=== PATIENT | female | born 1960 | race African-American/Black ===

== ENCOUNTER 2018-09-24 08:47 | Emergency (ER) | payer OTHER ==
[~2018-09-24] VITALS: Ht 172.7 cm; Wt 68.0 kg
[2018-09-24] MEDS ORDERED: UNOBMED (08:57)
--- NOTE | 2018-09-24 08:58 | Emergency Room Report ---
History of Present Illness General Chief Complaint: Altered Mental Status Source: EMS Present Illness HPI Mrs. Solis is a 58 yo female with hx of HTN and IDDM. She uses "the pen" for insulin. Her roommate noticed that she was awake around 7 am. Then, noticed that she was altered 1 - 1 1/2 hours later. BG 38 in the field per EMS. BG 47 after IM glucagon. Patient refuses to give hx of drink juice. She did agree to eat a sandwich. She stated that juice would make her sick. She will not give any further hx. Allergies: Coded Allergies: NO KNOWN ALLERGIES (Unverified Allergy, Unknown, 06/22/15) Patient History Past Medical History: old chart reviewed Past Surgical History: other - per EMR Social History: Denies: smoking, alcohol use, drug use Social History Narrative UTO Reviewed Nursing Documentation: PMH: Agreed; PSxH: Agreed Nursing Documentation-PMH Past Medical History Deferred: Patient Unconscious Hx Cardiac Problems: No Hx Hypertension: Yes Hx Pacemaker: No Hx Asthma: Yes Hx COPD: No Hx Diabetes: Yes Hx Cancer: No Hx Gastrointestinal Problems: No Hx Dialysis: No History Of Psychiatric Problem: No Hx Neurological Problems: No Hx Cerebrovascular Accident: No Hx Seizures: No Review of Systems All Other Systems: limited - patient will not cooperate Physical Exam Vital Signs Date Time Temp Pulse Resp B/P (MAP) Pulse Ox O2 Delivery O2 Flow Rate FiO2 09/24/18 08:44 98 150/78 Room Air Sp02 EP Interpretation: reviewed, normal General Appearance: no apparent distress, alert, non-toxic, other - GCS 14, semicooperative, agitated Head: normocephalic, atraumatic Eyes: bilateral eye normal inspection ENT: hearing grossly normal, normal pharynx, no angioedema, normal voice Neck: full range of motion, supple/symm/no masses Respiratory: chest non-tender, lungs clear, normal breath sounds, speaking full sentences Cardiovascular #1: regular rate, rhythm, no edema Gastrointestinal: normal bowel sounds, non tender, soft, non-distended, no guarding, no rebound Rectal: deferred Genitourinary: normal inspection Musculoskeletal: normal range of motion, non-tender, calf tenderness Neurologic: alert, responsive, motor strength/tone normal, sensory intact, speech normal, other - oriented to person Psychiatric: memory normal, other - agitated Skin: normal color, no rash, warm/dry, well hydrated Medical Decision Making Diagnostic Impression: Primary Impression: Acute metabolic encephalopathy Additional Impression: Hypoglycemia ER Course Once euglycemia was achieved, Ms. Solis was a pleasant insightful patient. She explained that she was recently seen by her reading teacher on yesterday. She stated that her kidneys are at base line function. She has not changed her dose of insulin vai the flex pen. She takes this medication twice a day. She does not remember eating this morning. However she did use her flex pen to administer insulin. She politely declined any lab work. She understands to not take a second dose of insulin today. She will contact her PCP today to inform him of this episode of altered mental status and hypoglycemia. She was taken home by her sister. She did eat sandwich and drink juice. Repeat BG 131 prior to second snack. Last Vital Signs Date Time Temp Pulse Resp B/P (MAP) Pulse Ox O2 Delivery O2 Flow Rate FiO2 09/24/18 08:44 98 150/78 Room Air Disposition: HOME, SELF-CARE Condition: Stable Danna Walker MD Sep 24, 2018 08:58
[2018-09-24] MEDS ORDERED: Glucagon 1mg Inj IM ONE (09:02)
[2018-09-24] MEDS ORDERED: Glucagon 1mg Inj ONE (09:06)
[2018-09-24 09:09] VITALS: BP 150/78
[2018-09-24 10:25] VITALS: BP 148/69
== END 2018-09-24 10:25 | disposition home or self-care (01) ==
LOC: EDBD 08:47 → EMR 09:20
DX: G93.41 Metabolic encephalopathy (principal); E11.649 Type 2 diabetes mellitus with hypoglycemia without coma; I10 Essential (primary) hypertension
CPT/HCPCS: 96372; 99283; J1610

== ENCOUNTER 2018-10-23 02:41 | Emergency (ER) | payer OTHER ==
[~2018-10-23] VITALS: Ht 157.5 cm; Wt 68.0 kg
[~2018-10-23 02:41] MED LIST: UNOBMED
--- NOTE | 2018-10-23 02:53 | Emergency Room Report ---
History of Present Illness General Chief Complaint: Abdominal Pain Source: Patient Present Illness HPI Is a 58-year-old female with history of diabetes high blood pressure. She presents with chief complaint abdominal pain with vomiting. Onset for last 24 hours. Vomiting is nonbloody nonbilious. No diarrhea. No abdominal surgery. Pain is 8 out of 10. She's also out of her [place] for the last few days. She takes it for back pain. Allergies: Coded Allergies: NO KNOWN ALLERGIES (Unverified Allergy, Unknown, 06/22/15) Patient History Past Medical History: see triage record, old chart reviewed, DM, HTN Past Surgical History: none Pertinent Family History: none Social History: Denies: smoking Last Menstrual Period: 1 decade ago Now: No Immunizations: other Reviewed Nursing Documentation: PMH: Agreed; PSxH: Agreed Nursing Documentation-PMH Hx Cardiac Problems: No Hx Hypertension: Yes Hx Pacemaker: No Hx Asthma: Yes Hx COPD: No Hx Diabetes: Yes Hx Cancer: No Hx Gastrointestinal Problems: No Hx Dialysis: No Hx Neurological Problems: No Hx Cerebrovascular Accident: No Hx Seizures: No Review of Systems Eye: Denies: eye pain, blurred vision ENT: Denies: ear pain, nose congestion, throat swelling Respiratory: Denies: cough, shortness of breath Cardiovascular: Denies: chest pain, palpitations Gastrointestinal: Reports: abdominal pain, nausea, vomiting; Denies: diarrhea Musculoskeletal: Denies: back pain, joint pain Skin: Denies: rash Neurological: Denies: headache, numbness Endocrine: Denies: increased thirst, increased urine Hematologic/Lymphatic: Denies: easy bruising All Other Systems: negative except mentioned in HPI Physical Exam Vital Signs Date Time Temp Pulse Resp B/P (MAP) Pulse Ox O2 Delivery O2 Flow Rate FiO2 10/23/18 02:42 98.1 106 16 177/72 99 Room Air Sp02 EP Interpretation: reviewed, normal General Appearance: well appearing, no apparent distress, alert Head: normocephalic, atraumatic Eyes: bilateral eye PERRL, bilateral eye EOMI ENT: hearing grossly normal, normal pharynx Neck: full range of motion, supple, no meningismus Respiratory: chest non-tender, lungs clear, normal breath sounds Cardiovascular #1: regular rate, rhythm, no murmur Gastrointestinal: normal bowel sounds, no mass, no organomegaly, no bruit, non- distended, tenderness Musculoskeletal: back normal, gait/station normal, normal range of motion Psychiatric: mood/affect normal Skin: warm/dry Medical Decision Making Diagnostic Impression: Primary Impression: Diverticulitis large intestine Qualified Codes: K57.32 - Diverticulitis of large intestine without perforation or abscess without bleeding Additional Impressions: Leukocytosis Qualified Codes: D72.829 - Elevated white blood cell count, unspecified Hypertension Qualified Codes: I10 - Essential (primary) hypertension ER Course Patient with abdominal pain. Now pain seemed to be more in the left lower quadrant. This is consistent with a diverticulitis. There is no perforation or abscess. There is no obstruction. Pain is better controlled. The cause of her persistent pain and leukocytosis, will admit versus transfer for IV antibiotics and further workup. I discussed case with Dr. Zavaleta who accepted pt for transfer to [facility]. Laboratory Tests Test 10/23/18 03:00 10/23/18 03:10 Urine Color Pending Urine Appearance Pending Urine pH Pending Urine Specific [place] Pending Urine Protein Pending Urine Glucose (UA) Pending Urine Ketones Pending Urine Blood Pending Urine Nitrite Pending Urine Bilirubin Pending Urine Urobilinogen Pending Urine Leukocyte Esterase Pending Urine Opiates Screen Pending Urine Barbiturates Screen Pending Phencyclidine (PCP) Screen Pending Urine Amphetamines Screen Pending Urine Benzodiazepines Screen Pending Urine Cocaine Screen Pending Urine Marijuana (THC) Screen Pending White Blood Count 20.9 K/UL (4.8-10.8) H Red Blood Count 3.80 M/UL (4.20-5.40) L Hemoglobin 11.0 G/DL (12.0-16.0) L Hematocrit 33.7 % (37.0-47.0) L Mean Corpuscular Volume 89 FL (80-99) Mean Corpuscular Hemoglobin 28.9 PG (27.0-31.0) Mean Corpuscular Hemoglobin Concent 32.6 G/DL (32.0-36.0) Red Cell Distribution Width 13.6 % (11.6-14.8) Platelet Count 248 K/UL (150-450) Mean Platelet Volume 4.9 FL (6.5-10.1) L Neutrophils (%) (Auto) % (45.0-75.0) Lymphocytes (%) (Auto) % (20.0-45.0) Monocytes (%) (Auto) % (1.0-10.0) Eosinophils (%) (Auto) % (0.0-3.0) Basophils (%) (Auto) % (0.0-2.0) Sodium Level 134 MMOL/L (136-145) L Potassium Level 4.3 MMOL/L (3.5-5.1) Chloride Level 98 MMOL/L (98-107) Carbon Dioxide Level 25 MMOL/L (21-32) Anion Gap 11 mmol/L (5-15) Blood Urea Nitrogen 48 mg/dL (7-18) H Creatinine 4.5 MG/DL (0.55-1.30) H Estimat Glomerular Filtration Rate 12.2 mL/min (>60) Glucose Level 433 MG/DL (74-106) H Calcium Level 10.2 MG/DL (8.5-10.1) H Total Bilirubin 0.2 MG/DL (0.2-1.0) Aspartate Amino Transf (AST/SGOT) 10 U/L (15-37) L Alanine Aminotransferase (ALT/SGPT) 17 U/L (12-78) Alkaline Phosphatase 97 U/L (46-116) Total Protein 8.2 G/DL (6.4-8.2) Albumin 3.4 G/DL (3.4-5.0) Globulin 4.8 g/dL Albumin/Globulin Ratio 0.7 (1.0-2.7) L Lipase 77 U/L (73-393) Lab Results Impression labs with leukocytosis Rhythm Strip Diag. Results EP Interpretation: yes Rate: 102 Rhythm: NSR, no PVC's, no ectopy CT/MRI/US Diagnostic Results CT/MRI/US Diagnostic Results : Imaging Test Ordered: CT abdomen and pelvis Impression Read by radiologist. Mucosal thickening and pericolonic inflammatory stranding involving the descending colon consistent with colitis. No free air or abscess. Last Vital Signs Date Time Temp Pulse Resp B/P (MAP) Pulse Ox O2 Delivery O2 Flow Rate FiO2 10/23/18 02:42 98.1 106 16 177/72 99 Room Air Status: improved Disposition: XFER SHT-TRM HOSP Condition: Stable Kings Sarabia MD Oct 23, 2018 02:53
[2018-10-23] MEDS: Morphine Sulfate 4mg/ml Inj (IV/IM USE ONLY) IVP ONE ×2 (03:16→04:07)
[2018-10-23 03:19] LABS: HEMATOCRIT 33.7 % (37.0-47.0); MEAN CORPUSCULAR VOLUME 89 FL (80-99); PLATELET COUNT 248 K/UL (150-450); RED CELL DISTRIBUTION WIDTH 13.6 % (11.6-14.8); WHITE BLOOD COUNT 20.9 K/UL (4.8-10.8)
[2018-10-23 03:29] LABS: ANION GAP 11 mmol/L (5-15); BLOOD UREA NITROGEN 48 mg/dL (7-18); CALCIUM 10.2 MG/DL (8.5-10.1); CARBON DIOXIDE 25 MMOL/L (21-32); CHLORIDE 98 MMOL/L (98-107); CREATININE 4.5 MG/DL (0.55-1.30); POTASSIUM 4.3 MMOL/L (3.5-5.1); SODIUM 134 MMOL/L (136-145)
[2018-10-23 03:34] LABS: ALANINE AMINOTRANSFERASE 17 U/L (12-78); ALBUMIN 3.4 G/DL (3.4-5.0); ALBUMIN/GLOBULIN RATIO 0.7 (1.0-2.7); ALKALINE PHOSPHATASE 97 U/L (46-116); ASPARTATE AMINO TRANSFERASE 10 U/L (15-37); BILIRUBIN,TOTAL 0.2 MG/DL (0.2-1.0)
[2018-10-23 04:01] VITALS: BP 177/72
[2018-10-23] MEDS: Ciprofloxacin 500mg tab ORAL ONE (04:08)
[2018-10-23 04:58] VITALS: BP 138/64
[2018-10-23] MEDS ORDERED: LORazepam Inj 2mg/ml 1ml IV ONE (05:15)
[2018-10-23] MEDS: Insulin Human Regular 100units/ml 3ml IV ONE (06:07)
[2018-10-23 06:17] LABS: BILIRUBIN, URINE NEGATIVE (NEGATIVE); COLOR,URINE PALE YELLOW; GLUCOSE, URINE (UA) 3+ (NEGATIVE); KETONES,URINE NEGATIVE (NEGATIVE); LEUKOCYTE ESTERASE ,URINE 2+ (NEGATIVE); NITRITE,URINE NEGATIVE (NEGATIVE); PH,URINE 5 (4.5-8.0); PROTEIN,URINE 4+ (NEGATIVE); UROBILINOGEN,URINE NORMAL MG/DL (0.0-1.0)
[2018-10-23 06:24] LABS: APPEARANCE,URINE CLOUDY
[2018-10-23 06:26] VITALS: BP 113/56
[2018-10-23 07:14] VITALS: BP 113/56
--- NOTE | 2018-10-24 15:48 | Diagnostic Imaging Report ---
Indication: Abdominal pain Technique: Continuous helical transaxial imaging of the abdomen and pelvis was obtained from the lung bases to the pubic symphysis. No intravenous contrast was administered. Coronal 2-D reformats were also obtained. Automatic Exposure Control was utilized. Total Dose length Product (DLP): 827.[address] Dose Index Volume (CTDIvol): 17.05 mGy Comparison: none Findings: There is fairly marked wall thickening involving the descending colon and sigmoid with moderate surrounding inflammation. Findings consistent with colitis. The appendix is normal. There is no abscess. Moderate aortoiliac calcifications are present. The adrenal glands are hypertrophied bilaterally. Gallbladder is grossly unremarkable. Small hiatal hernia is present. There is thickening of the wall the distal esophagus. Consider EGD. No evidence of bowel obstruction. Bladder is unremarkable. Uterus noted. IMPRESSION: Evidence of moderate colitis involving the left hemicolon. No abscess identified. Normal appendix. Bilateral adrenal gland hypertrophy. Atherosclerotic vascular disease. Other incidental findings as above. [facility] has communicated the preliminary results to the Emergency Department. Their findings are largely concordant with this report. The CT scanner at [facility] is accredited by the [employer] and the scans are performed using dose optimization techniques as appropriate to a performed exam including Automatic Exposure control.
== END 2018-10-23 07:15 | disposition short-term general hospital (02) ==
LOC: EDUNIT# 02:41 → EDBD 02:41 → EMR 02:56
DX: K57.32 Diverticulitis of large intestine without perforation or abscess without bleeding (principal); D72.829 Elevated white blood cell count, unspecified; I10 Essential (primary) hypertension; J45.909 Unspecified asthma, uncomplicated
CPT/HCPCS: 36415; 74176; 80053; 80307; 81003; 83690; 85025; 87086; 96361; 96365; 96375; 96376; 99285; J0360; J1815; J2270; J2405

== ENCOUNTER 2019-07-09 10:25 | Inpatient (IN) | payer OTHER ==
[~2019-07-09] VITALS: Ht 157.5 cm; Wt 52.6 kg
[2019-07-09] MEDS ORDERED: ASPIR 8181 MG ORAL (10:30)
[2019-07-09] MEDS ORDERED: NORVASC2.5 MG ORAL (10:30)
[2019-07-09] MEDS ORDERED: BENADRYL25 M3 PO (10:30)
[2019-07-09] MEDS ORDERED: LIPITOR80 MG ORAL (10:30)
[2019-07-09 10:32] VITALS: BP 170/82
--- NOTE | 2019-07-09 10:44 | NUR ---
ED Nurse Note: Contacted computer lab para professional for blood draw, per computer lab para professional as soon as shes available she will come and draw a blood for the patient. Per computer lab para professional, if maybe another nurse can try draw a blood for the patient to save time
--- NOTE | 2019-07-09 10:46 | NUR ---
ED Nurse Note: RN attempted to establish IV to right hand x 1, unsuccessful. Applied clean, dry dressing. RN asked questions about her medications and patient states 'why do you ask me? look at the paper!' in agitated voice and she remained on her phone. RN informed patient that patient arrived here with no paperwork. Patient did not answer questions at this time.
--- NOTE | 2019-07-09 10:52 | Emergency Room Report ---
History of Present Illness General Chief Complaint: Abnormal Labs Source: Patient, EMS Present Illness HPI BLS transported the patient to our facility. Apparently she had a physical done yesterday. She was contacted by her doctor and told that she has abnormal kidney function labs and that she needed to come into the hospital to be evaluated. Apparently the patient's roommate called EMS. The patient denies any pain at this time. There is no nausea, vomiting, diarrhea, dysuria, productive cough or skin rashes. The patient is reluctant to answer most questions. History of hypertension, diabetes and asthma. When it is pointed out that she scraped her knees she says "no I have been falling". Allergies: Coded Allergies: NO KNOWN ALLERGIES (Unverified Allergy, Unknown, 06/22/15) Patient History Limited by: other - Patient refusing to answer Past Medical History: see triage record Social History: Reports: smoking Social History Narrative states she lives by herself, but then states room-mate called EMS Reviewed Nursing Documentation: PMH: Agreed; PSxH: Agreed Nursing Documentation-PMH Past Medical History: No History, Except For Hx Cardiac Problems: No Hx Hypertension: Yes Hx Pacemaker: No Hx Asthma: Yes Hx COPD: No Hx Diabetes: Yes Hx Cancer: No Hx Gastrointestinal Problems: No Hx Dialysis: No Hx Neurological Problems: No Hx Cerebrovascular Accident: No Hx Seizures: No Review of Systems All Other Systems: limited Physical Exam Vital Signs Date Time Temp Pulse Resp B/P (MAP) Pulse Ox O2 Delivery O2 Flow Rate FiO2 07/09/19 10:24 98.4 108 18 180/92 (121) 99 Room Air Sp02 EP Interpretation: reviewed, normal General Appearance: alert, non-toxic, Chronically Ill Head: normocephalic Eyes: bilateral eye PERRL, bilateral eye conjunctivae pale ENT: moist mucus membranes - Poor dentition Neck: full range of motion, supple Respiratory: lungs clear Cardiovascular #1: regular rate, rhythm, no edema Cardiovascular #2: 2+ radial (R) Gastrointestinal: normal bowel sounds, non tender Genitourinary: no CVA tenderness Musculoskeletal: no calf tenderness Neurologic: motor strength/tone normal, DTRs symmetric, sensory intact, oriented - X2 Psychiatric: other - Argumentative and refusing care at times Skin: warm/dry, abrasion - These, pallor Procedures Critical Care Time Critical Care Time Total Critical Care Time: 30 min bedside evaluation and treatment excludes procedures (EKG). Reason for critical care: Hyperkalemia, acute renal failure, discussion with patient reluctant to undergo treatment Possible complications: hypotension, hypertension, CA, shock, arrhythmias, metabolic acidosis, end organ damage, respiratory failure. Interventions: Treatment of hyperkalemia, discussion with patient regarding need for treatment and discussion with admitting physician Course: Patient presented with history of abnormal labs. Evaluation reveals hyperkalemia and acute renal failure. Patient reluctant to undergo treatment initially. Discussion with patient about need for treatment and her acceptance to undergo treatment. Discussed with respiratory therapy. Discussion with natural resources technician regarding need for EKG. Repeat evaluations of patient. Discussion with admitting physician regarding possible need for dialysis access. Consultations: nursing staff, EMS, admitting physician, RT, natural resources technician Performed by: Dr. Jo Tolerated well condition = serious Medical Decision Making Diagnostic Impression: Primary Impression: Hyperkalemia Additional Impressions: Acute renal failure Qualified Codes: N17.9 - Acute kidney failure, unspecified Anemia Qualified Codes: D64.9 - Anemia, unspecified ER Course Patient presents via BLS with a history of having abnormal labs. Differential includes renal failure, hyperkalemia, acute myocardial infarction amongst others. Evaluation with EKG, chest x-ray and labs. Patient is placed on a ekg monitor tech. EKG without injury, possible slight peaked T waves. CXR no infiltrate. Lab called with K 6.5. Treatment initiated. White count normal. Mild anemia. Elevated BUN and creatinine. Initially patient wary of any treatment however agreed to undergo treatment and reasons discussed with patient. Prior to admission the patient complains about bilateral upper abdominal discomfort. She poorly describes it. She is requesting analgesia and morphine and Zofran are ordered. Patient admitted to telemetry and patient discussed with Dr. Ward. Specifically it was discussed that the patient has no access for dialysis and that she might need this. Laboratory Tests Test 07/09/19 11:05 07/09/19 16:15 White Blood Count 6.9 K/UL (4.8-10.8) Red Blood Count 3.52 M/UL (4.20-5.40) L Hemoglobin 9.8 G/DL (12.0-16.0) L Hematocrit 31.3 % (37.0-47.0) L Mean Corpuscular Volume 89 FL (80-99) Mean Corpuscular Hemoglobin 27.9 PG (27.0-31.0) Mean Corpuscular Hemoglobin Concent 31.4 G/DL (32.0-36.0) L Red Cell Distribution Width 13.3 % (11.6-14.8) Platelet Count 233 K/UL (150-450) Mean Platelet Volume 4.1 FL (6.5-10.1) L Neutrophils (%) (Auto) 58.5 % (45.0-75.0) Lymphocytes (%) (Auto) 30.1 % (20.0-45.0) Monocytes (%) (Auto) 8.4 % (1.0-10.0) Eosinophils (%) (Auto) 2.0 % (0.0-3.0) Basophils (%) (Auto) 0.9 % (0.0-2.0) Prothrombin Time 9.5 SEC (9.30-11.50) Prothrombin Time INR 0.9 (0.9-1.1) PTT 26 SEC (23-33) Sodium Level 135 MMOL/L (136-145) L 135 MMOL/L (136-145) L Potassium Level 6.5 MMOL/L (3.5-5.1) *H 5.9 MMOL/L (3.5-5.1) H Chloride Level 104 MMOL/L (98-107) 104 MMOL/L (98-107) Carbon Dioxide Level 19 MMOL/L (21-32) L 21 MMOL/L (21-32) Anion Gap 10 mmol/L (5-15) 9 mmol/L (5-15) Blood Urea Nitrogen 51 mg/dL (7-18) H 51 mg/dL (7-18) H Creatinine 6.8 MG/DL (0.55-1.30) H 6.9 MG/DL (0.55-1.30) H Estimate Glomerular Filtration Rate 7.5 mL/min (>60) 7.5 mL/min (>60) Glucose Level 112 MG/DL (74-106) H 140 MG/DL (74-106) H Calcium Level 9.4 MG/DL (8.5-10.1) 9.9 MG/DL (8.5-10.1) Total Bilirubin 0.2 MG/DL (0.2-1.0) Aspartate Amino Transferase (AST) 14 U/L (15-37) L Alanine Aminotransferase (ALT) 20 U/L (12-78) Alkaline Phosphatase 93 U/L (46-116) Total Creatine Kinase 77 U/L (26-308) 77 U/L (26-308) Troponin I 0.000 ng/mL (0.000-0.056) Pro-B-Type Natriuretic Peptide 314 pg/mL (0-125) H Total Protein 7.5 G/DL (6.4-8.2) Albumin 3.2 G/DL (3.4-5.0) L Globulin 4.3 g/dL Albumin/Globulin Ratio 0.7 (1.0-2.7) L Lipase 143 U/L (73-393) Uric Acid 6.2 MG/DL (2.6-7.2) EKG Diagnostic Results Rate: normal Rhythm: NSR ST Segments: no acute changes Rhythm Strip Diag. Results EP Interpretation: yes Rhythm: NSR, no PVC's, no ectopy Chest X-Ray Diagnostic Results Chest X-Ray Diagnostic Results : Chest X-Ray Ordered: Yes # of Views/Limited/Complete: 1 View Indication: Other EP Interpretation: Yes Interpretation: no consolidation, no effusion, no pneumothorax Impression: No acute disease Electronically Signed by: Electronically signed by Kalpesh Jo MD Last Vital Signs Date Time Temp Pulse Resp B/P (MAP) Pulse Ox O2 Delivery O2 Flow Rate FiO2 07/09/19 16:00 101 07/09/19 16:00 Room Air 07/09/19 16:00 97.7 18 146/66 (92) 99 07/09/19 13:02 21 Status: improved Disposition: ADMITTED INPATIENT Condition: Serious Kalpesh Jo MD Jul 09, 2019 10:52
--- NOTE | 2019-07-09 10:56 | NUR ---
ED Nurse Note: Patient was brought in buy RA [id number]. Patient is alert and orienetd and able to make needs known. Patient was advised by her PCP to come to ER for further evaluation regading her abnormal lab reults. Offered patient to change clothes to hospital gown, but patient refused. Patient vitals taken and monitored.
--- NOTE | 2019-07-09 11:07 | Diagnostic Imaging Report ---
Indication: Dyspnea Comparison: 05/11/2010 A single view chest radiograph was obtained. Findings: Cardiomediastinal appearance is within normal limits for age. The lungs are clear. Pulmonary vascularity is appropriate. The diaphragmatic contour is smooth and costophrenic angles are sharp. No pleural effusions are identified. The bones are unremarkable. Impression: No acute findings
[2019-07-09 11:15] LABS: BASOPHILS % (AUTO) 0.9 % (0.0-2.0); HEMATOCRIT 31.3 % (37.0-47.0); HEMOGLOBIN 9.8 G/DL (12.0-16.0); LYMPHOCYTES % (AUTO) 30.1 % (20.0-45.0); MEAN CORPUSCULAR VOLUME 89 FL (80-99); MONOCYTES % (AUTO) 8.4 % (1.0-10.0); NEUTROPHILS % (AUTO) 58.5 % (45.0-75.0); PLATELET COUNT 233 K/UL (150-450); RED BLOOD COUNT 3.52 M/UL (4.20-5.40); RED CELL DISTRIBUTION WIDTH 13.3 % (11.6-14.8); WHITE BLOOD COUNT 6.9 K/UL (4.8-10.8)
[2019-07-09 11:22] LABS: INR 0.9 (0.9-1.1)
[2019-07-09 11:32] LABS: ALANINE AMINOTRANSFERASE 20 U/L (12-78); ALBUMIN 3.2 G/DL (3.4-5.0); ALBUMIN/GLOBULIN RATIO 0.7 (1.0-2.7); ALKALINE PHOSPHATASE 93 U/L (46-116); ANION GAP 10 mmol/L (5-15); ASPARTATE AMINO TRANSFERASE 14 U/L (15-37); BILIRUBIN,TOTAL 0.2 MG/DL (0.2-1.0); BLOOD UREA NITROGEN 51 mg/dL (7-18); CALCIUM 9.4 MG/DL (8.5-10.1); CARBON DIOXIDE 19 MMOL/L (21-32); CHLORIDE 104 MMOL/L (98-107); CREATINE KINASE 77 U/L (26-308); CREATININE 6.8 MG/DL (0.55-1.30); SODIUM 135 MMOL/L (136-145)
--- NOTE | 2019-07-09 11:32 | NUR ---
ED Nurse Note: Patient expressed of wanting to leave the hospital ER, charge nurse made aware.
[2019-07-09 11:33] LABS: POTASSIUM 6.5 MMOL/L (3.5-5.1)
[2019-07-09] MEDS ORDERED: Albuterol ud Inhalation ONE (11:44)
[2019-07-09] MEDS ORDERED: Insulin Human Regular 100units/ml 3ml IV ONE (11:45)
[2019-07-09] MEDS ORDERED: Calcium Gluconate 1gm/10ml vial IVP ONE (11:45)
[2019-07-09] MEDS ORDERED: Albuterol ud Inhalation HHN ONE (11:45)
[2019-07-09] MEDS ORDERED: Sodium Polystyrene Sulfonate 15gm Powder ORAL ONE (11:45)
[2019-07-09 12:07] VITALS: BP 153/74
--- NOTE | 2019-07-09 12:18 | NUR ---
ED Nurse Note: LISTED BELONGINGS BUT PT. REFUSED TO GO OVER INSIDE OF HER PURSE
[2019-07-09] MEDS ORDERED: Morphine Sulfate 2mg/ml Inj(IV/IM USE ONLY) IVP ONE (12:45)
--- NOTE | 2019-07-09 12:45 | NUR ---
ED Nurse Note: Pt. stated that she has pain on the R side of the rib cage area. Notified ERMD.
--- NOTE | 2019-07-09 12:51 | NUR ---
ED Nurse Note: report given to ROSEY Rockwell from [facility]
--- NOTE | 2019-07-09 13:05 | NUR ---
NURSE NOTES: Report received from senior process control tech. Patient is a new admission from ED, brought to SDU per yelena; awake, alert and oriented but resistant to care and noncompliant. NSR on ekg monitor tech, no respiratory distress noted, IV to right hand 22g, intact and patent. Abrasions to bilateral knees, patient admits to falling at home. Call light within reach, bed in lowest position with wheels locked. Will continue to monitor.
--- NOTE | 2019-07-09 14:43 | Consultation ---
Consult Note Consult Note I am asked to eval the patient for renal failure and hyperKalemia- Is a 59-year-old female with history of diabetes high blood pressure. NO KNOWN ALLERGIES (Unverified Allergy, Unknown, 06/22/15) ER Note: BLS transported the patient to our facility. Apparently she had a physical done yesterday. She was contacted by her doctor and told that she has abnormal kidney function labs and that she needed to come into the hospital to be evaluated. Apparently the patient's roommate called EMS. The patient denies any pain at this time. There is no nausea, vomiting, diarrhea, dysuria, productive cough or skin rashes. The patient is reluctant to answer most questions. History of hypertension, diabetes and asthma. When it is pointed out that she scraped her knees she says "no I have been falling". o/e: patient agitated and combative wants to be left alone has no insight about the gravity of her medical condition in Oct 2018 , patient had Cr 4.5 . Assessment/Plan acute on chronic renal failure Encephalopathy HyperKalemia DM HTN Psych eval Kayexelate BP and Bs control renal diet avoid nephrotoxics monitor renal parameters Yovany Marquez MD Jul 09, 2019 14:43
[2019-07-09] MEDS ORDERED: Albuterol/Ipratropium 3ml neb HHN PRN (14:45)
[2019-07-09] MEDS ORDERED: Morphine Sulfate 2mg/ml Inj(IV/IM USE ONLY) IVP PRN (14:45)
--- NOTE | 2019-07-09 14:50 | NUR ---
NURSE NOTES: Dr Soriano at bedside to discuss plan of care but patient not agreeable to discussion
[2019-07-09 16:00] VITALS: BP 146/66
--- NOTE | 2019-07-09 16:20 | NUR ---
Nursing Driver License Examiner Notes: Call received at [address] Drake requesting that I speak with patient in regards to concerns patient voiced during her Consultation. I met with patient with friend at bedside (patient gave permission to speak with her while friend at bedside) patient currently denies having any concerns, complaints or questions. Patient informed of my position at this facility and made aware that she may contact myself or the oncoming Driver License Examiner if any arises and she agrees.
[2019-07-09] MEDS: NovoLOG Insulin Flexpen SUBQ SCH ×2 (16:30→21:00)
--- NOTE | 2019-07-09 16:30 | History and Physical Report ---
DATE OF ADMISSION: 07/09/2019 TIME SEEN: 3 p.m. CONSULTANTS: 1. Jefferson Roberts M.D. 2. Yovany Lozano M.D. 3. Michael Drake M.D. CHIEF COMPLAINT: New renal failure, hyperkalemia. BRIEF HISTORY: This is a 59-year-old female, who was at her doctor's office, told her that she has high potassium, was sent to [facility], diagnosed with new acute renal failure, admitted to step down unit for further care. Currently, slightly agitated in bed, no complaint. REVIEW OF SYSTEMS: No chest pain. No shortness of breath. No nausea, vomiting, or diarrhea. PAST MEDICAL HISTORY: Includes diabetes, hypertension. PAST SURGICAL HISTORY: None. MEDICATIONS: Include Norvasc, Kayexalate, Protonix, MiraLAX, Ambien, Colace, NovoLog, Zofran, Tylenol, clonidine, insulin. ALLERGIES: Denies. SOCIAL HISTORY: Positive smoking. No alcohol. No intravenous drug use. FAMILY HISTORY: Noncontributory. PHYSICAL EXAMINATION: GENERAL: Calm in bed, oriented x2, in no acute distress. VITAL SIGNS: Temperature 97, pulse 109, respiratory rate 19, blood pressure 152/74. CARDIOVASCULAR: No murmur. LUNGS: Distant and clear. ABDOMEN: Bowel sounds positive. Nontender. Nondistended. EXTREMITIES: No cyanosis, clubbing, or edema. NEUROLOGIC: The patient moves all extremities, slightly weak. LABORATORY AND DIAGNOSTIC DATA: Hemoglobin and hematocrit of 9.8 and 31, otherwise CBC is normal. BMP show sodium 135, potassium , CO2 19, BUN and creatinine 51 and 6.8, glucose 112. Troponin 0.00. BNP is 314. Albumin 3.2. INR 0.9 and PTT is 26. ASSESSMENT: 1. New renal failure. 2. Anemia. 3. Diabetes. 4. Hypertension. 5. Malnutrition. 6. Asthma. 7. Hyperkalemia. PLAN: 1. Kayexalate given. 2. Blood pressure and blood sugar control. 3. Dietary followup. 4. CBC and BMP in morning. Sammy Ward D.O. DR: Tamera JOB#: [id number] CC:
[2019-07-09 16:53] LABS: ANION GAP 9 mmol/L (5-15); BLOOD UREA NITROGEN 51 mg/dL (7-18); CALCIUM 9.9 MG/DL (8.5-10.1); CARBON DIOXIDE 21 MMOL/L (21-32); CHLORIDE 104 MMOL/L (98-107); CREATININE 6.9 MG/DL (0.55-1.30); POTASSIUM 5.9 MMOL/L (3.5-5.1); SODIUM 135 MMOL/L (136-145)
[2019-07-09 16:59] LABS: CREATINE KINASE 77 U/L (26-308)
[2019-07-09] MEDS: Docusate 100mg cap ORAL SCH (18:00)
--- NOTE | 2019-07-09 18:00 | NUR ---
NURSE NOTES: Friend visiting at bedside, patient talking and more agreeable with plan of care
--- NOTE | 2019-07-09 19:30 | NUR ---
HAND-OFF: Report given to Bassam toy consultant.
--- NOTE | 2019-07-09 19:32 | NUR ---
NURSE NOTES: Received report from Morgan Coleman RN. PAtient in bed AAO X4 with no complaints of acute pain or discomfort noted. Kept clean, dry, and comfortable in bed. Able to ambulate to the bathroom with minimal assistance. IV line intact and patent, and placed on continuous cardiac monitoring per protocol. Safety precaution in place; siderails X2 up, call light within reach, bed in lowest position, brakes and alarm on at all times. Needs and wants anticipated and attended. Will continue plan of care
[2019-07-09 20:00] VITALS: BP 150/70
[2019-07-09] MEDS ORDERED: Miralax 17gm pkt ORAL PRN (21:00)
[2019-07-09] MEDS ORDERED: Zolpidem 5mg tab ORAL PRN (21:00)
[2019-07-09] MEDS: Heparin 5000 units/ml inj SUBQ SCH (21:29)
--- NOTE | 2019-07-09 22:45 | Consultation ---
DATE OF CONSULTATION: 07/09/2019 CONSULTING PHYSICIAN: Michael Drake M.D. HISTORY OF PRESENT ILLNESS: This is a 59-year-old female with a history of multiple medical issues including acute tubular necrosis, diabetes mellitus, hypertension, and anemia who has been admitted to the hospital due to hyperkalemia. Psychiatry was consulted due to the patient's noncompliance and being uncooperative with the physical examination. The patient she was asleep and the barrel lathe operator came into the room "snatched" the cover off her. The patient was irritable, defensive and somewhat disrespectful. Her family friend was at bedside. The patient denied any psychiatric history. The patient stated that she would cooperate with the physical examination and medications. The patient denied any depressive, manic or psychotic symptoms. The patient appeared anxious. PAST PSYCHIATRIC HISTORY: She is denying. PAST MEDICAL HISTORY: Acute tubular necrosis, diabetic mellitus, hypertension, and anemia. ALLERGIES: No known drug allergies. SUBSTANCE ABUSE HISTORY: No known history of illicit drug use or alcohol. MENTAL STATUS EXAMINATION: The patient is alert and oriented times to self, place, and situation. Mood is irritable and angry. Affect is constricted, congruent with mood. Thought process is linear and goal oriented. Thought content, no suicidal or homicidal ideation. Cognition is intact. Insight and judgment is poor. ASSESSMENT: AXIS I: Anxiety disorder. AXIS II: Cluster B personality. AXIS IV: Low. AXIS V: 15. PLAN: 1. The patient is reluctant to take any medication. 2. The family friend requested the patient to speak to management. I notified the warehouse order filler, Lilly, who will be speaking to the patient. Michael Drake M.D. DR: MARKEL JOB#: [id number] CC: LINDA
--- NOTE | 2019-07-10 02:49 | NUR ---
NURSE NOTES: Patient in bed asleep with no S/S of distress. Will continue to monitor.
[2019-07-10 04:00] VITALS: BP 120/76
[2019-07-10 05:39] LABS: APPEARANCE,URINE CLEAR; BILIRUBIN, URINE NEGATIVE (NEGATIVE); COLOR,URINE PALE YELLOW; GLUCOSE, URINE (UA) NEGATIVE (NEGATIVE); KETONES,URINE NEGATIVE (NEGATIVE); LEUKOCYTE ESTERASE ,URINE NEGATIVE (NEGATIVE); NITRITE,URINE NEGATIVE (NEGATIVE); PH,URINE 6 (4.5-8.0); PROTEIN,URINE 4+ (NEGATIVE); UROBILINOGEN,URINE NORMAL MG/DL (0.0-1.0)
[2019-07-10 05:44] LABS: BASOPHILS % (AUTO) 0.9 % (0.0-2.0); EOSINOPHILS % (AUTO) 1.1 % (0.0-3.0); HEMATOCRIT 27.6 % (37.0-47.0); HEMOGLOBIN 8.6 G/DL (12.0-16.0); LYMPHOCYTES % (AUTO) 38.1 % (20.0-45.0); MEAN CORPUSCULAR VOLUME 89 FL (80-99); MONOCYTES % (AUTO) 7.6 % (1.0-10.0); NEUTROPHILS % (AUTO) 52.3 % (45.0-75.0); PLATELET COUNT 213 K/UL (150-450); RED BLOOD COUNT 3.12 M/UL (4.20-5.40); RED CELL DISTRIBUTION WIDTH 13.3 % (11.6-14.8); WHITE BLOOD COUNT 7.1 K/UL (4.8-10.8)
--- NOTE | 2019-07-10 06:00 | NUR ---
NURSE NOTES: Attempted to put in peripheral IV X3, unable to establish. Will try again later per patient.
[2019-07-10 06:03] LABS: % IRON SATURATION 36 % (15-50); IRON 44 ug/dL (50-175); TOTAL IRON BINDING CAPACITY 121 ug/dL (250-450)
[2019-07-10 06:14] LABS: FERRITIN 180 NG/ML (8-388)
[2019-07-10 06:17] LABS: ALANINE AMINOTRANSFERASE 19 U/L (12-78); ALBUMIN 2.9 G/DL (3.4-5.0); ALBUMIN/GLOBULIN RATIO 0.7 (1.0-2.7); ALKALINE PHOSPHATASE 78 U/L (46-116); ANION GAP 12 mmol/L (5-15); ASPARTATE AMINO TRANSFERASE 14 U/L (15-37); BILIRUBIN,TOTAL 0.2 MG/DL (0.2-1.0); BLOOD UREA NITROGEN 49 mg/dL (7-18); CALCIUM 9.1 MG/DL (8.5-10.1); CARBON DIOXIDE 20 MMOL/L (21-32); CHLORIDE 106 MMOL/L (98-107); CHOLESTEROL 119 MG/DL (< 200); HDL CHOLESTEROL 43 MG/DL (40-60); POTASSIUM 5.9 MMOL/L (3.5-5.1); SODIUM 138 MMOL/L (136-145); TRIGLYCERIDES 115 MG/DL (30-150)
[2019-07-10] MEDS: NovoLOG Insulin Flexpen SUBQ SCH ×4 (06:30→20:43)
--- NOTE | 2019-07-10 06:49 | NUR ---
NURSE NOTES: Offered to try and insert a new peripheral IV. Patient refused, stated that will try again maybe later on. Will endorse to AM shift.
--- NOTE | 2019-07-10 07:23 | NUR ---
HAND-OFF: Report given to Juan Bryan RN. Patient in bed with no S/S of distress. Endorsed plan of care.
--- NOTE | 2019-07-10 07:25 | NUR ---
NURSE NOTES: Received bedside report from Bassam CURRIE. Pt. OOB up and in the bathroom. No sign of distress. Denies pain at present. Per previous shift pt. refused to start IV line. Will notify MD. Will cont. to monitor.
[2019-07-10 08:00] VITALS: BP 137/90
--- NOTE | 2019-07-10 08:23 | NUR ---
NURSE NOTES: Went to see pt. to talk to her about plan of care for today. She told RN "don't bother me!" RN informed pt. that her K+ level still elevated and I'll give her morning medications. Pt. responded " I know that already and I don't need that medications". Explained risk and benefits with pt. Pt. didn't response. Pt. allowed WEDDING PLANNER to checked her v/s. Will cont. to monitor.
--- NOTE | 2019-07-10 08:32 | NUR ---
NURSE NOTES: Seen by Dr. Claire and witnessed by this magnetic tape typewriter operator. Dr. Claire explained to pt. she will be needing HD due to her elevated K+ and BUN/Crea. and pt. verbalized in angry way "I know that already!". Dr. Claire explained risk and benefits but pt. remained upset and keeps on mumbling.
--- NOTE | 2019-07-10 08:35 | NUR ---
NURSE NOTES: RN informed Dr. Claire that pt. pulled out IV last night and previous shift tried putting new one but pt. refused. aware no IV line.
--- NOTE | 2019-07-10 08:49 | Nephrology Progress Note ---
Assessment/Plan Problem List: (1) Renal failure (ARF), acute on chronic (2) Hyperkalemia (3) Hypertension (4) Diabetes mellitus Assessment acute on chronic renal failure Encephalopathy HyperKalemia DM HTN . Plan Psych eval and the unsubstantiated accusations in psych consult noted patient refuses po Kayexelate at presence of the RN, patient was offered to take the medication that is offered to her and need for dialysis at least temporary to correct life threatening high potassium- refused patient has pulled out the IV line earlier and refuses to have one in. continue per PMD and Psych BP and Bs control renal diet as possible avoid nephrotoxics monitor renal parameters MAIK pending 2 D Echo pending add po folic acid and phos binders change diet to renal Subjective ROS Limited/Unobtainable: No Interval Events/Complaints seen 8.30 am at presence of the RN mary in 2W Objective Objective Last 24 Hour Vital Signs Date Time Temp Pulse Resp B/P (MAP) Pulse Ox O2 Delivery O2 Flow Rate FiO2 07/10/19 04:00 88 07/10/19 04:00 98.2 90 18 120/76 (91) 96 07/10/19 03:29 Room Air 07/10/19 00:00 97 07/10/19 00:00 Room Air 07/09/19 22:29 98 18 99 Room Air 21 07/09/19 20:00 Room Air 07/09/19 20:00 88 07/09/19 20:00 98.4 91 18 150/70 (96) 98 07/09/19 16:00 101 07/09/19 16:00 Room Air 07/09/19 16:00 97.7 93 18 146/66 (92) 99 07/09/19 15:00 Room Air 07/09/19 13:47 103 07/09/19 13:02 97.9 109 19 153/74 100 Room Air 21 07/09/19 12:07 97.9 109 19 153/74 100 Room Air 07/09/19 11:47 104 18 100 Room Air 21 94 16 99 07/09/19 10:32 98.6 95 13 170/82 100 Room Air 07/09/19 10:24 98.4 108 18 180/92 (121) 99 Room Air Intake and Output 9/20/19 9/21/19 18:59 06:59 Intake Total 240 ml 240 ml Output Total 0 ml Balance 240 ml 240 ml Intake Oral 240 ml 240 ml Output Urine Total 0 ml Laboratory Tests 07/09/19 11:05: White Blood Count 6.9, Red Blood Count 3.52L, Hemoglobin 9.8L, Hematocrit 31.3L , Mean Corpuscular Volume 89, Mean Corpuscular Hemoglobin 27.9, Mean Corpuscular Hemoglobin Concent 31.4L, Red Cell Distribution Width 13.3, Platelet Count 233, Mean Platelet Volume 4.1L, Neutrophils (%) (Auto) 58.5, Lymphocytes (%) (Auto) 30.1, Monocytes (%) (Auto) 8.4, Eosinophils (%) (Auto) 2.0, Basophils (%) (Auto) 0.9, Prothrombin Time 9.5, Prothromb Time International Ratio 0.9, Activated Partial Thromboplast Time 26, Sodium Level 135L, Potassium Level 6.5*H, Chloride Level 104, Carbon Dioxide Level 19L, Anion Gap 10, Blood Urea Nitrogen 51H, Creatinine 6.8H, Estimat Glomerular Filtration Rate 7.5, Glucose Level 112H, Calcium Level 9.4, Total Bilirubin 0.2 , Aspartate Amino Transf (AST/SGOT) 14L, Alanine Aminotransferase (ALT/SGPT) 20 , Alkaline Phosphatase 93, Total Creatine Kinase 77, Troponin I 0.000, Pro-B- Type Natriuretic Peptide 314H, Total Protein 7.5, Albumin 3.2L, Globulin 4.3, Albumin/Globulin Ratio 0.7L, Lipase 143 07/09/19 16:15: Sodium Level 135L, Potassium Level 5.9H, Chloride Level 104, Carbon Dioxide Level 21, Anion Gap 9, Blood Urea Nitrogen 51H, Creatinine 6.9H, Estimat Glomerular Filtration Rate 7.5, Glucose Level 140H, Calcium Level 9.9, Total Creatine Kinase 77, Uric Acid 6.2 07/10/19 03:40: White Blood Count 7.1, Red Blood Count 3.12L, Hemoglobin 8.6L, Hematocrit 27.6L , Mean Corpuscular Volume 89, Mean Corpuscular Hemoglobin 27.7, Mean Corpuscular Hemoglobin Concent 31.2L, Red Cell Distribution Width 13.3, Platelet Count 213, Mean Platelet Volume 4.1L, Neutrophils (%) (Auto) 52.3, Lymphocytes (%) (Auto) 38.1, Monocytes (%) (Auto) 7.6, Eosinophils (%) (Auto) 1.1, Basophils (%) (Auto) 0.9, Sodium Level 138, Potassium Level 5.9H, Chloride Level 106, Carbon Dioxide Level 20L, Anion Gap 12, Blood Urea Nitrogen 49H, Creatinine 7.0H, Estimat Glomerular Filtration Rate 7.4, Glucose Level 72L, Calcium Level 9.1, Total Bilirubin 0.2, Aspartate Amino Transf (AST/SGOT) 14L, Alanine Aminotransferase (ALT/SGPT) 19, Alkaline Phosphatase 78, Troponin I 0.000, Pro-B-Type Natriuretic Peptide 437H, Total Protein 6.8, Albumin 2.9L, Globulin 3.9, Albumin/Globulin Ratio 0.7L, Uric Acid 6.4, Hemoglobin A1c 7.9H, Phosphorus Level 6.0H, Magnesium Level 2.1, Iron Level 44L, Total Iron Binding Capacity 121L, Percent Iron Saturation 36, Unsaturated Iron Binding 77L, Ferritin 180, C-Reactive Protein, Quantitative < 0.4, Triglycerides Level 115, Cholesterol Level 119, LDL Cholesterol 58, HDL Cholesterol 43, Cholesterol/HDL Ratio 2.8L, Vitamin B12 Level 733, Folate 5.3L, Thyroid Stimulating Hormone (TSH ) 2.176 07/10/19 04:30: Urine Color Pale yellow, Urine Appearance Clear, Urine pH 6, Urine Specific [place] 1.010, Urine Protein 4+H, Urine Glucose (UA) Negative, Urine Ketones Negative, Urine Blood 1+H, Urine Nitrite Negative, Urine Bilirubin Negative, Urine Urobilinogen Normal, Urine Leukocyte Esterase Negative, Urine RBC 2-4H, Urine WBC 0-2, Urine Squamous Epithelial Cells Few, Urine Bacteria Few, Urine Hyaline Casts 0-2H, Urine Fine Granular Casts 0-2H, Urine Eosinophils None seen Height (Feet): 5 Height (Inches): 2.00 Weight (Pounds): 116 General Appearance: no apparent distress, other Objective doesnt appear to understand the gravity of her condition regarding kidney failure Yovany Lozano MD Jul 10, 2019 08:49
[2019-07-10] MEDS: Docusate 100mg cap ORAL SCH ×2 (10:06→18:22)
[2019-07-10] MEDS: Sodium Polystyrene Sulfonate 15gm Powder ORAL SCH (10:06)
[2019-07-10] MEDS: Heparin 5000 units/ml inj SUBQ SCH ×2 (10:10→20:43)
[2019-07-10 12:00] VITALS: BP 120/73
--- NOTE | 2019-07-10 12:31 | Consultation ---
History of Present Illness General Chief Complaint: Abnormal Labs Present Illness Allergies: Coded Allergies: NO KNOWN ALLERGIES (Unverified Allergy, Unknown, 06/22/15) Medication History Scheduled Amlodipine Besylate (Norvasc), Unknown Dose ORAL DAILY, (Reported) Aspirin* (Aspir 81*), 81 MG ORAL DAILY, (Reported) Atorvastatin (Lipitor), 80 MG ORAL BEDTIME, (Reported) Miscellaneous Medications Diphenhydramine HCl (Benadryl), 25 MG PO, (Reported) Unable to Obtain Medications (Unable To Obtain Meds), (Reported) Patient History Healthcare decision maker N/A Resuscitation status Full Code Advanced Directive on File No Physical Exam Last 24 Hour Vital Signs Date Time Temp Pulse Resp B/P (MAP) Pulse Ox O2 Delivery O2 Flow Rate FiO2 07/10/19 12:00 98.1 95 18 120/73 (89) 94 07/10/19 12:00 Room Air 07/10/19 11:40 97 07/10/19 10:07 90 137/90 07/10/19 08:00 97.0 90 18 137/90 (106) 94 07/10/19 08:00 Room Air 07/10/19 07:48 92 07/10/19 04:00 88 07/10/19 04:00 98.2 90 18 120/76 (91) 96 07/10/19 03:29 Room Air 07/10/19 00:00 97 07/10/19 00:00 Room Air 07/09/19 22:29 98 18 99 Room Air 21 07/09/19 20:00 Room Air 07/09/19 20:00 88 07/09/19 20:00 98.4 91 18 150/70 (96) 98 07/09/19 16:00 101 07/09/19 16:00 Room Air 07/09/19 16:00 97.7 93 18 146/66 (92) 99 07/09/19 15:00 Room Air 07/09/19 13:47 103 07/09/19 13:02 97.9 109 19 153/74 100 Room Air 21 Intake and Output 07/09/19 07/10/19 19:00 07:00 Intake Total 240 ml 240 ml Output Total 0 ml Balance 240 ml 240 ml Intake Oral 240 ml 240 ml Output Urine Total 0 ml Laboratory Tests Test 07/09/19 16:15 07/10/19 03:40 07/10/19 04:30 Sodium Level 135 MMOL/L (136-145) L 138 MMOL/L (136-145) Potassium Level 5.9 MMOL/L (3.5-5.1) H 5.9 MMOL/L (3.5-5.1) H Chloride Level 104 MMOL/L (98-107) 106 MMOL/L (98-107) Carbon Dioxide Level 21 MMOL/L (21-32) 20 MMOL/L (21-32) L Anion Gap 9 mmol/L (5-15) 12 mmol/L (5-15) Blood Urea Nitrogen 51 mg/dL (7-18) H 49 mg/dL (7-18) H Creatinine 6.9 MG/DL (0.55-1.30) H 7.0 MG/DL (0.55-1.30) H Estimat Glomerular Filtration Rate 7.5 mL/min (>60) 7.4 mL/min (>60) Glucose Level 140 MG/DL (74-106) H 72 MG/DL (74-106) L Uric Acid 6.2 MG/DL (2.6-7.2) 6.4 MG/DL (2.6-7.2) Calcium Level 9.9 MG/DL (8.5-10.1) 9.1 MG/DL (8.5-10.1) Total Creatine Kinase 77 U/L (26-308) White Blood Count 7.1 K/UL (4.8-10.8) Red Blood Count 3.12 M/UL (4.20-5.40) L Hemoglobin 8.6 G/DL (12.0-16.0) L Hematocrit 27.6 % (37.0-47.0) L Mean Corpuscular Volume 89 FL (80-99) Mean Corpuscular Hemoglobin 27.7 PG (27.0-31.0) Mean Corpuscular Hemoglobin Concent 31.2 G/DL (32.0-36.0) L Red Cell Distribution Width 13.3 % (11.6-14.8) Platelet Count 213 K/UL (150-450) Mean Platelet Volume 4.1 FL (6.5-10.1) L Neutrophils (%) (Auto) 52.3 % (45.0-75.0) Lymphocytes (%) (Auto) 38.1 % (20.0-45.0) Monocytes (%) (Auto) 7.6 % (1.0-10.0) Eosinophils (%) (Auto) 1.1 % (0.0-3.0) Basophils (%) (Auto) 0.9 % (0.0-2.0) Hemoglobin A1c 7.9 % (4.3-6.0) H Phosphorus Level 6.0 MG/DL (2.5-4.9) H Magnesium Level 2.1 MG/DL (1.8-2.4) Iron Level 44 ug/dL (50-175) L Total Iron Binding Capacity 121 ug/dL (250-450) L Percent Iron Saturation 36 % (15-50) Unsaturated Iron Binding 77 ug/dL (112-346) L Ferritin 180 NG/ML (8-388) Total Bilirubin 0.2 MG/DL (0.2-1.0) Aspartate Amino Transf (AST/SGOT) 14 U/L (15-37) L Alanine Aminotransferase (ALT/SGPT) 19 U/L (12-78) Alkaline Phosphatase 78 U/L (46-116) Troponin I 0.000 ng/mL (0.000-0.056) C-Reactive Protein, Quantitative < 0.4 mg/dL (0.00-0.90) Pro-B-Type Natriuretic Peptide 437 pg/mL (0-125) H Total Protein 6.8 G/DL (6.4-8.2) Albumin 2.9 G/DL (3.4-5.0) L Globulin 3.9 g/dL Albumin/Globulin Ratio 0.7 (1.0-2.7) L Triglycerides Level 115 MG/DL (30-150) Cholesterol Level 119 MG/DL (< 200) LDL Cholesterol 58 mg/dL (<100) HDL Cholesterol 43 MG/DL (40-60) Cholesterol/HDL Ratio 2.8 (3.3-4.4) L Vitamin B12 Level 733 PG/ML (193-986) Folate 5.3 NG/ML (8.6-58.9) L Thyroid Stimulating Hormone (TSH) 2.176 uiU/mL (0.358-3.740) Urine Color Pale yellow Urine Appearance Clear Urine pH 6 (4.5-8.0) Urine Specific [place] 1.010 (1.005-1.035) Urine Protein 4+ (NEGATIVE) H Urine Glucose (UA) Negative (NEGATIVE) Urine Ketones Negative (NEGATIVE) Urine Blood 1+ (NEGATIVE) H Urine Nitrite Negative (NEGATIVE) Urine Bilirubin Negative (NEGATIVE) Urine Urobilinogen Normal MG/DL (0.0-1.0) Urine Leukocyte Esterase Negative (NEGATIVE) Urine RBC 2-4 /HPF (0 - 2) H Urine WBC 0-2 /HPF (0 - 2) Urine Squamous Epithelial Cells Few /LPF (NONE/OCC) Urine Bacteria Few /HPF (NONE) Urine Hyaline Casts 0-2 /LPF (NONE) H Urine Fine Granular Casts 0-2 /LPF (NONE) H Urine Eosinophils None seen (NONE SEEN) Height (Feet): 5 Height (Inches): 2.00 Weight (Pounds): 116 Medications Current Medications Medications (Trade) Dose Ordered Sig/Tamra Route PRN Reason Start Time Stop Time Status Last Admin Dose Admin Acetaminophen (Tylenol) 650 mg Q4H PRN ORAL T>100.5 07/09/19 14:45 08/08/19 14:44 Albuterol/ Ipratropium (Albuterol/ Ipratropium) 3 ml Q6H PRN HHN dyspnea 07/09/19 14:45 07/14/19 14:44 Amlodipine Besylate (Norvasc) 10 mg DAILY ORAL 07/10/19 09:00 08/09/19 08:59 07/10/19 10:07 Clonidine HCl (Catapres Tab) 0.1 mg Q4H PRN ORAL SBP > 160 mmHg 07/09/19 14:45 08/08/19 14:44 Dextrose (Dextrose 50%) 25 ml Q30M PRN IV Hypoglycemia 07/09/19 14:45 08/08/19 14:44 Dextrose (Dextrose 50%) 50 ml Q30M PRN IV Hypoglycemia 07/09/19 14:45 08/08/19 14:44 Docusate Sodium (Colace) 100 mg TWICE A DAY ORAL 07/09/19 18:00 08/08/19 17:59 07/10/19 10:06 Folic Acid (Folate) 1 mg DAILY ORAL 07/10/19 09:00 08/09/19 08:59 07/10/19 10:06 Heparin Sodium (Porcine) (Heparin 5000 units/ml) 5,000 units EVERY 12 HOURS SUBQ 07/09/19 21:00 08/08/19 20:59 07/10/19 10:10 Insulin Aspart (NovoLOG) BEFORE MEALS AND HS SUBQ 07/09/19 16:30 08/08/19 16:29 Morphine Sulfate (Morphine Sulfate) 1 mg Q4H PRN IVP PAIN 4-10 07/09/19 14:45 07/16/19 14:44 Ondansetron HCl (Zofran) 4 mg Q6H PRN IVP Nausea & Vomiting 07/09/19 15:00 08/08/19 14:59 Pantoprazole (Protonix) 40 mg DAILY ORAL 07/10/19 09:00 08/09/19 08:59 07/10/19 10:06 Polyethylene Glycol (Miralax) 17 gm HSPRN PRN ORAL Constipation 07/09/19 21:00 08/08/19 20:59 Sevelamer Carbonate (Renvela) 800 mg THREE TIMES A DAY ORAL 07/10/19 09:00 08/09/19 08:59 07/10/19 10:06 Sodium Polystyrene Sulfonate (Kayexalate) 45 gm DAILY ORAL 07/10/19 09:00 07/13/19 08:59 07/10/19 10:06 Zolpidem Tartrate (Ambien) 5 mg HSPRN PRN ORAL Insomnia 07/09/19 21:00 07/16/19 20:59 Assessment/Plan Assessment/Plan: Hematology Consultation REBenedict CASTELLANOS: Unique Ward DOS: 07/10/19 RFC: Anemia eval and folic acid deficiency ID Called by Dr. Ward for anemia eval 59y old female, BLS transported the patient to our facility. Apparently she had a physical done yesterday. She was contacted by her doctor and told that she has abnormal kidney function labs and that she needed to come into the hospital to be evaluated. Apparently the patient's roommate called EMS. The patient denies any pain at this time. There is no nausea, vomiting, diarrhea, dysuria, productive cough or skin rashes. Seen by renal, [facility], heme was called for anemia anemia. Refusing care. The patient is reluctant to answer most questions. History of hypertension, diabetes and asthma. When it is pointed out that she scraped her knees she says "no I have been falling". Allergies: Coded Allergies: NO KNOWN ALLERGIES (Unverified Allergy, Unknown, 06/22/15) Patient History Limited by: other - Patient refusing to answer Past Medical History: see triage record Social History: Reports: smoking Social History Narrative states she lives by herself, but then states room-mate called EMS Reviewed Nursing Documentation: PMH: Agreed; PSxH: Agreed Nursing Documentation-PMH Past Medical History: No History, Except For Hx Cardiac Problems: No Hx Hypertension: Yes Hx Pacemaker: No Hx Asthma: Yes Hx COPD: No Hx Diabetes: Yes Hx Cancer: No Hx Gastrointestinal Problems: No Hx Dialysis: No Hx Neurological Problems: No Hx Cerebrovascular Accident: No Hx Seizures: No Review of systems: limited Physical Exam Vitals: reviewed, normal Gen: alert, non-toxic, Chronically Ill ENT: poor dentition Pulm: lungs clear CV: regular rate, rhythm, no edema Gi: normal bowel sounds, non tender Neurologic: oriented - X2 Psychiatric: Argumentative and refusing care at times +++ Labs: reviewed Imaging: noted Assessment and recs: # Anemia due to underlying iron deficiency and also from kidney disease --> anemia panel has been ordered --> r/o occult blood --> r/o hemolysis, retic, bili --> transfuse if hgb <8 as needed ==> trend 9.8-->8.6 ---> STARTED ON IV IRON x 5 DAYS TOTAL # Anemia due to folic acid deficiency --> started on folic acid daily --> per renal # Hyperkalemia, administer kayxelate --> has been refusing care # Acute renal failure, discussion with patient reluctant to undergo treatment --> recommending hd as per renal # Noncompliance --> continue to activities counselor re proper care Greatly appreciate consultation. Justus Tsang MD Jul 10, 2019 12:31
[2019-07-10 16:00] VITALS: BP 142/84
--- NOTE | 2019-07-10 16:18 | Cardiology Report ---
APPROVED REPORT EXAM: Two-dimensional and M-mode echocardiogram with Doppler and color Doppler. INDICATION Congestive Heart Failure M-Mode DIMENSIONS IVSd1.1 (0.7-1.1cm)Left Atrium (MM)3.0 (1.6-4.0cm) LVDd4.5 (3.5-5.6cm)Aortic Root3.1 (2.0-3.7cm) PWd1.0 (0.7-1.1cm)Aortic Cusp Exc.2.0 (1.5-2.0cm) LVDs2.2 (2.5-4.0cm) PWs2.3 cm Normal left ventricular chamber size, systolic function and wall motion. Left ventricular ejection fraction estimated to be 60 %. Borderline left ventricular hypertrophy. No evidence of pericardial effusion. All other cardiac chamber sizes are within normal limits. Focal aortic valve sclerosis with adequate cusp excursion. Thickened mitral valve leaflets with normal excursion. Mild mitral annulus and aortic root calcification. Pulmonic valve not well visualized. Normal tricuspid valve structure. IVC is normal in size with physiological collapse. A color flow and spectral Doppler study was performed and revealed: No aortic regurgitation. Trace mitral regurgitation. Left ventricular diastolic function could not be determined due to arrhythmia. Trace tricuspid regurgitation. Tricuspid systolic velocities suggests peak right ventricular systolic pressure of 33 mmHg. No pulmonic regurgitation present.
--- NOTE | 2019-07-10 16:31 | General Progress Note ---
Assessment/Plan Problem List: (1) ATN (acute tubular necrosis) ICD Codes: N17.0 - Acute kidney failure with tubular necrosis SNOMED: 39440340 (2) Diabetes mellitus ICD Codes: E11.9 - Type 2 diabetes mellitus without complications SNOMED: 15036306 (3) Acute renal failure ICD Codes: N17.9 - Acute kidney failure, unspecified SNOMED: 74971746 Qualifiers: Qualified Codes: N17.9 - Acute kidney failure, unspecified (4) Anemia ICD Codes: D64.9 - Anemia, unspecified SNOMED: 493718709 Qualifiers: Qualified Codes: D64.9 - Anemia, unspecified (5) Hyperkalemia ICD Codes: E87.5 - Hyperkalemia SNOMED: 71353890 (6) Renal failure (ARF), acute on chronic ICD Codes: N17.9 - Acute kidney failure, unspecified; N18.9 - Chronic kidney disease, unspecified SNOMED: 214718247 Status: stable, progressing Assessment/Plan: pt diet neph eval cbc bmp am Subjective Constitutional: Reports: weakness Allergies: Coded Allergies: NO KNOWN ALLERGIES (Unverified Allergy, Unknown, 06/22/15) All Systems: reviewed and negative except above Subjective calm in room Objective Last 24 Hour Vital Signs Date Time Temp Pulse Resp B/P (MAP) Pulse Ox O2 Delivery O2 Flow Rate FiO2 07/10/19 12:00 98.1 95 18 120/73 (89) 94 07/10/19 12:00 Room Air 07/10/19 11:40 97 07/10/19 10:07 90 137/90 07/10/19 08:05 97 20 99 Room Air 21 07/10/19 08:00 97.0 90 18 137/90 (106) 94 07/10/19 08:00 Room Air 07/10/19 07:48 92 07/10/19 04:00 88 07/10/19 04:00 98.2 90 18 120/76 (91) 96 07/10/19 03:29 Room Air 07/10/19 00:00 97 07/10/19 00:00 Room Air 07/09/19 22:29 98 18 99 Room Air 21 07/09/19 20:00 Room Air 07/09/19 20:00 88 07/09/19 20:00 98.4 91 18 150/70 (96) 98 Intake and Output 07/09/19 07/10/19 19:00 07:00 Intake Total 240 ml 240 ml Output Total 0 ml Balance 240 ml 240 ml Intake Oral 240 ml 240 ml Output Urine Total 0 ml Laboratory Tests 07/10/19 03:40: White Blood Count 7.1, Red Blood Count 3.12L, Hemoglobin 8.6L, Hematocrit 27.6L , Mean Corpuscular Volume 89, Mean Corpuscular Hemoglobin 27.7, Mean Corpuscular Hemoglobin Concent 31.2L, Red Cell Distribution Width 13.3, Platelet Count 213, Mean Platelet Volume 4.1L, Neutrophils (%) (Auto) 52.3, Lymphocytes (%) (Auto) 38.1, Monocytes (%) (Auto) 7.6, Eosinophils (%) (Auto) 1.1, Basophils (%) (Auto) 0.9, Sodium Level 138, Potassium Level 5.9H, Chloride Level 106, Carbon Dioxide Level 20L, Anion Gap 12, Blood Urea Nitrogen 49H, Creatinine 7.0H, Estimat Glomerular Filtration Rate 7.4, Glucose Level 72L, Hemoglobin A1c 7.9H, Uric Acid 6.4, Calcium Level 9.1, Phosphorus Level 6.0H, Magnesium Level 2.1, Iron Level 44L, Total Iron Binding Capacity 121L, Percent Iron Saturation 36, Unsaturated Iron Binding 77L, Ferritin 180, Total Bilirubin 0.2, Aspartate Amino Transf (AST/SGOT) 14L, Alanine Aminotransferase (ALT/SGPT) 19, Alkaline Phosphatase 78, Troponin I 0.000, C-Reactive Protein, Quantitative < 0.4, Pro-B-Type Natriuretic Peptide 437H, Total Protein 6.8, Albumin 2.9L, Globulin 3.9, Albumin/Globulin Ratio 0.7L, Triglycerides Level 115, Cholesterol Level 119, LDL Cholesterol 58, HDL Cholesterol 43, Cholesterol/HDL Ratio 2.8L, Vitamin B12 Level 733, Folate 5.3L, Thyroid Stimulating Hormone (TSH) 2.176 07/10/19 04:30: Urine Color Pale yellow, Urine Appearance Clear, Urine pH 6, Urine Specific [place] 1.010, Urine Protein 4+H, Urine Glucose (UA) Negative, Urine Ketones Negative, Urine Blood 1+H, Urine Nitrite Negative, Urine Bilirubin Negative, Urine Urobilinogen Normal, Urine Leukocyte Esterase Negative, Urine RBC 2-4H, Urine WBC 0-2, Urine Squamous Epithelial Cells Few, Urine Bacteria Few, Urine Hyaline Casts 0-2H, Urine Fine Granular Casts 0-2H, Urine Eosinophils None seen Height (Feet): 5 Height (Inches): 2.00 Weight (Pounds): 116 General Appearance: lethargic EENT: normal ENT inspection Neck: normal alignment Cardiovascular: normal peripheral pulses, normal rate, regular rhythm Respiratory/Chest: chest wall non-tender, lungs clear, normal breath sounds Abdomen: normal bowel sounds, non tender, soft Extremities: normal inspection Edema: no edema noted Arm (L), no edema noted Arm (R), no edema noted Leg (L), no edema noted Leg (R), no edema noted Pedal (L), no edema noted Pedal (R), no edema noted Generalized Neurologic: motor weakness Skin: normal pigmentation, warm/dry Sammy Ward DO Jul 10, 2019 16:31
--- NOTE | 2019-07-10 19:26 | NUR ---
HAND-OFF: Report given to Danni CURRIE. Pt. remain stable.
--- NOTE | 2019-07-10 19:27 | NUR ---
NURSE NOTES: Received bedside report from ROSEY Pinon.Patient stable,no c/o pain,no respiratory distress noted,pt sleeping,SR on monitoring tech,tolerated r/air well,skin intact,ambulatory stable,IV asymptomatic intact on L hand 24G SL,bed secured,call light within a reach,will continue to monitor
[2019-07-10] MEDS ORDERED: Iron Sucrose 100 MG in NS 55 ML IV SCH (21:00)
--- NOTE | 2019-07-10 21:00 | NUR ---
NURSE NOTES: Pt refused all meds,refused Venofer IV d/t Hgb 8.6.MD will notify,charge nurse aware
--- NOTE | 2019-07-10 23:30 | NUR ---
NURSE NOTES: Pt refused to check V/S,became agitated,and wants to keep door close.Charge nurse aware
--- NOTE | 2019-07-11 04:00 | NUR ---
NURSE NOTES: Pr refused V/S,stable,sleeping
[2019-07-11 05:26] LABS: BASOPHILS % (AUTO) 1.2 % (0.0-2.0); EOSINOPHILS % (AUTO) 1.5 % (0.0-3.0); HEMATOCRIT 26.8 % (37.0-47.0); HEMOGLOBIN 8.5 G/DL (12.0-16.0); LYMPHOCYTES % (AUTO) 42.5 % (20.0-45.0); MEAN CORPUSCULAR VOLUME 87 FL (80-99); MONOCYTES % (AUTO) 10.4 % (1.0-10.0); NEUTROPHILS % (AUTO) 44.4 % (45.0-75.0); PLATELET COUNT 193 K/UL (150-450); RED BLOOD COUNT 3.08 M/UL (4.20-5.40); RED CELL DISTRIBUTION WIDTH 12.8 % (11.6-14.8); WHITE BLOOD COUNT 5.2 K/UL (4.8-10.8)
[2019-07-11 05:58] LABS: ALANINE AMINOTRANSFERASE 16 U/L (12-78); ALBUMIN 2.7 G/DL (3.4-5.0); ALBUMIN/GLOBULIN RATIO 0.7 (1.0-2.7); ALKALINE PHOSPHATASE 82 U/L (46-116); ANION GAP 11 mmol/L (5-15); ASPARTATE AMINO TRANSFERASE 13 U/L (15-37); BILIRUBIN,TOTAL 0.2 MG/DL (0.2-1.0); BLOOD UREA NITROGEN 49 mg/dL (7-18); CALCIUM 8.9 MG/DL (8.5-10.1); CARBON DIOXIDE 23 MMOL/L (21-32); CHLORIDE 106 MMOL/L (98-107); CREATININE 6.6 MG/DL (0.55-1.30); PHOSPHORUS 7.5 MG/DL (2.5-4.9); POTASSIUM 4.2 MMOL/L (3.5-5.1); SODIUM 140 MMOL/L (136-145)
--- NOTE | 2019-07-11 06:00 | NUR ---
NURSE NOTES: Pt took out IV and refused to insert a new.Pt has no IV access,charge nurse aware.
[2019-07-11] MEDS: NovoLOG Insulin Flexpen SUBQ SCH ×3 (06:30→20:37)
--- NOTE | 2019-07-11 06:30 | NUR ---
NURSE NOTES: Pt aggressive,refused BS check and adm Insulin.Will endorse next shift.Charge nurse aware
--- NOTE | 2019-07-11 07:13 | NUR ---
HAND-OFF: Report given to ROSEY Coleman.
--- NOTE | 2019-07-11 07:15 | NUR ---
NURSE NOTES: Report received from Danni Taylor RN.Pt awake,alert with grumpy behavior noted,no distress presented,denies any discomfort or pain SR on the monitor,no IV access noted,tried to offer to have it reinserted but refused,pt very noncompliant and resistive to care.SR up x2 call stern within reach,HOB elevated,bed lock in lowest position,will continue with plans of care.
[2019-07-11 08:00] VITALS: BP 164/78
--- NOTE | 2019-07-11 08:07 | General Progress Note ---
Assessment/Plan Problem List: (1) ATN (acute tubular necrosis) ICD Codes: N17.0 - Acute kidney failure with tubular necrosis SNOMED: 93317771 (2) Diabetes mellitus ICD Codes: E11.9 - Type 2 diabetes mellitus without complications SNOMED: 63950957 (3) Acute renal failure ICD Codes: N17.9 - Acute kidney failure, unspecified SNOMED: 58628880 Qualifiers: Qualified Codes: N17.9 - Acute kidney failure, unspecified (4) Anemia ICD Codes: D64.9 - Anemia, unspecified SNOMED: 710817526 Qualifiers: Qualified Codes: D64.9 - Anemia, unspecified (5) Hyperkalemia ICD Codes: E87.5 - Hyperkalemia SNOMED: 42072091 (6) Renal failure (ARF), acute on chronic ICD Codes: N17.9 - Acute kidney failure, unspecified; N18.9 - Chronic kidney disease, unspecified SNOMED: 928760401 Status: stable, progressing Assessment/Plan: pt diet neph eval cbc bmp am Subjective Constitutional: Reports: weakness Allergies: Coded Allergies: NO KNOWN ALLERGIES (Unverified Allergy, Unknown, 06/22/15) All Systems: reviewed and negative except above Subjective sleepy calm in room Objective Last 24 Hour Vital Signs Date Time Temp Pulse Resp B/P (MAP) Pulse Ox O2 Delivery O2 Flow Rate FiO2 07/11/19 04:00 Room Air 07/11/19 03:38 80 07/11/19 00:00 Room Air 07/10/19 23:38 81 07/10/19 20:00 84 20 99 Room Air 21 07/10/19 20:00 Room Air 07/10/19 19:26 80 07/10/19 16:00 98.8 97 18 142/84 (103) 100 07/10/19 16:00 Room Air 07/10/19 15:30 99 07/10/19 12:00 98.1 95 18 120/73 (89) 94 07/10/19 12:00 Room Air 07/10/19 11:40 97 07/10/19 10:07 90 137/90 Intake and Output 07/10/19 07/11/19 18:59 06:59 Intake Total 420 ml 240 ml Balance 420 ml 240 ml Intake Oral 420 ml 240 ml # Voids 2 Laboratory Tests 07/11/19 04:10: White Blood Count 5.2, Red Blood Count 3.08L, Hemoglobin 8.5L, Hematocrit 26.8L , Mean Corpuscular Volume 87, Mean Corpuscular Hemoglobin 27.8, Mean Corpuscular Hemoglobin Concent 31.8L, Red Cell Distribution Width 12.8, Platelet Count 193, Mean Platelet Volume 4.3L, Neutrophils (%) (Auto) 44.4L, Lymphocytes (%) (Auto) 42.5, Monocytes (%) (Auto) 10.4H, Eosinophils (%) (Auto) 1.5, Basophils (%) (Auto) 1.2, Sodium Level 140, Potassium Level 4.2, Chloride Level 106, Carbon Dioxide Level 23, Anion Gap 11, Blood Urea Nitrogen 49H, Creatinine 6.6H, Estimat Glomerular Filtration Rate 7.9, Glucose Level 99, Calcium Level 8.9, Phosphorus Level 7.5H, Total Bilirubin 0.2, Aspartate Amino Transf (AST/SGOT) 13L, Alanine Aminotransferase (ALT/SGPT) 16, Alkaline Phosphatase 82, Total Protein 6.5, Albumin 2.7L, Globulin 3.8, Albumin/Globulin Ratio 0.7L Height (Feet): 5 Height (Inches): 2.00 Weight (Pounds): 116 General Appearance: lethargic EENT: normal ENT inspection Neck: normal alignment Cardiovascular: normal peripheral pulses, normal rate, regular rhythm Respiratory/Chest: chest wall non-tender, lungs clear, normal breath sounds Abdomen: normal bowel sounds, non tender, soft Extremities: normal inspection Edema: no edema noted Arm (L), no edema noted Arm (R), no edema noted Leg (L), no edema noted Leg (R), no edema noted Pedal (L), no edema noted Pedal (R), no edema noted Generalized Neurologic: motor weakness Skin: normal pigmentation, warm/dry Sammy Ward DO Jul 11, 2019 08:07
--- NOTE | 2019-07-11 08:44 | NUR ---
NURSE NOTES: Dr Ward at bedside,discussed with plans of care.
[2019-07-11] MEDS: Sodium Polystyrene Sulfonate 15gm Powder ORAL SCH (09:00)
[2019-07-11] MEDS: Docusate 100mg cap ORAL SCH ×2 (09:47→17:04)
[2019-07-11] MEDS: Heparin 5000 units/ml inj SUBQ SCH ×2 (09:51→20:39)
--- NOTE | 2019-07-11 10:41 | Nephrology Progress Note ---
Assessment/Plan Problem List: (1) Renal failure (ARF), acute on chronic (2) Hyperkalemia Assessment: resolved (3) Hypertension (4) Diabetes mellitus Assessment acute on chronic renal failure Encephalopathy HyperKalemia DM HTN . Plan 07/11: Patient states that have asked her Pest Technician to come in and decide for her regarding the need for dialysis mean while the high K is improved with kayexelate 07/10: Psych eval and the unsubstantiated accusations in psych consult noted patient refuses po Kayexelate at presence of the RN, patient was offered to take the medication that is offered to her and need for dialysis at least temporary to correct life threatening high potassium- refused patient has pulled out the IV line earlier and refuses to have one in. continue per PMD and Psych BP and Bs control renal diet as possible avoid nephrotoxics monitor renal parameters MAIK pending 2 D Echo 60% EjFx add po folic acid and phos binders change diet to renal Subjective ROS Limited/Unobtainable: No Interval Events/Complaints seen with charge nurse Don Constitutional: Reports: other - appears comfortable and calm Objective Objective Last 24 Hour Vital Signs Date Time Temp Pulse Resp B/P (MAP) Pulse Ox O2 Delivery O2 Flow Rate FiO2 07/11/19 09:48 89 164/78 07/11/19 04:00 Room Air 07/11/19 03:38 80 07/11/19 00:00 Room Air 07/10/19 23:38 81 07/10/19 20:00 84 20 99 Room Air 21 07/10/19 20:00 Room Air 07/10/19 19:26 80 07/10/19 16:00 98.8 97 18 142/84 (103) 100 07/10/19 16:00 Room Air 07/10/19 15:30 99 07/10/19 12:00 98.1 95 18 120/73 (89) 94 07/10/19 12:00 Room Air 07/10/19 11:40 97 Intake and Output 07/10/19 07/11/19 18:59 06:59 Intake Total 420 ml 240 ml Balance 420 ml 240 ml Intake Oral 420 ml 240 ml # Voids 2 Current Medications Medications (Trade) Dose Ordered Sig/Tamra Route PRN Reason Start Time Stop Time Status Last Admin Dose Admin Acetaminophen (Tylenol) 650 mg Q4H PRN ORAL T>100.5 07/09/19 14:45 08/08/19 14:44 Albuterol/ Ipratropium (Albuterol/ Ipratropium) 3 ml Q6H PRN HHN dyspnea 07/09/19 14:45 07/14/19 14:44 Amlodipine Besylate (Norvasc) 10 mg DAILY ORAL 07/10/19 09:00 08/09/19 08:59 07/11/19 09:48 Clonidine HCl (Catapres Tab) 0.1 mg Q4H PRN ORAL SBP > 160 mmHg 07/09/19 14:45 08/08/19 14:44 Dextrose (Dextrose 50%) 25 ml Q30M PRN IV Hypoglycemia 07/09/19 14:45 08/08/19 14:44 Dextrose (Dextrose 50%) 50 ml Q30M PRN IV Hypoglycemia 07/09/19 14:45 08/08/19 14:44 Docusate Sodium (Colace) 100 mg TWICE A DAY ORAL 07/09/19 18:00 08/08/19 17:59 07/11/19 09:47 Folic Acid (Folate) 1 mg DAILY ORAL 07/10/19 09:00 08/09/19 08:59 07/11/19 09:49 Heparin Sodium (Porcine) (Heparin 5000 units/ml) 5,000 units EVERY 12 HOURS SUBQ 07/09/19 21:00 08/08/19 20:59 07/11/19 09:51 Insulin Aspart (NovoLOG) BEFORE MEALS AND HS SUBQ 07/09/19 16:30 08/08/19 16:29 07/10/19 12:42 Iron Sucrose 100 mg/Sodium Chloride 60 ml @ 240 mls/hr BEDTIME IV 07/10/19 21:00 07/14/19 21:14 Morphine Sulfate (Morphine Sulfate) 1 mg Q4H PRN IVP PAIN 4-10 07/09/19 14:45 07/16/19 14:44 Ondansetron HCl (Zofran) 4 mg Q6H PRN IVP Nausea & Vomiting 07/09/19 15:00 08/08/19 14:59 Pantoprazole (Protonix) 40 mg DAILY ORAL 07/10/19 09:00 08/09/19 08:59 07/11/19 09:49 Polyethylene Glycol (Miralax) 17 gm HSPRN PRN ORAL Constipation 07/09/19 21:00 08/08/19 20:59 Sevelamer Carbonate (Renvela) 800 mg THREE TIMES A DAY ORAL 07/10/19 09:00 08/09/19 08:59 07/11/19 09:48 Sodium Polystyrene Sulfonate (Kayexalate) 45 gm DAILY ORAL 07/10/19 09:00 07/13/19 08:59 07/10/19 10:06 Zolpidem Tartrate (Ambien) 5 mg HSPRN PRN ORAL Insomnia 07/09/19 21:00 07/16/19 20:59 Laboratory Tests 07/11/19 04:10: White Blood Count 5.2, Red Blood Count 3.08L, Hemoglobin 8.5L, Hematocrit 26.8L , Mean Corpuscular Volume 87, Mean Corpuscular Hemoglobin 27.8, Mean Corpuscular Hemoglobin Concent 31.8L, Red Cell Distribution Width 12.8, Platelet Count 193, Mean Platelet Volume 4.3L, Neutrophils (%) (Auto) 44.4L, Lymphocytes (%) (Auto) 42.5, Monocytes (%) (Auto) 10.4H, Eosinophils (%) (Auto) 1.5, Basophils (%) (Auto) 1.2, Sodium Level 140, Potassium Level 4.2, Chloride Level 106, Carbon Dioxide Level 23, Anion Gap 11, Blood Urea Nitrogen 49H, Creatinine 6.6H, Estimat Glomerular Filtration Rate 7.9, Glucose Level 99, Calcium Level 8.9, Phosphorus Level 7.5H, Total Bilirubin 0.2, Aspartate Amino Transf (AST/SGOT) 13L, Alanine Aminotransferase (ALT/SGPT) 16, Alkaline Phosphatase 82, Total Protein 6.5, Albumin 2.7L, Globulin 3.8, Albumin/Globulin Ratio 0.7L Height (Feet): 5 Height (Inches): 2.00 Weight (Pounds): 116 General Appearance: no apparent distress Objective not want to be examined Yovany Lozano MD Jul 11, 2019 10:41
[2019-07-11 12:00] VITALS: BP 180/79
--- NOTE | 2019-07-11 12:35 | NUR ---
TRANSFER TO FLOOR: Patient transferred to 3E, per bed awake,alert oriented in no resp distress,stable. Report given to Margaret RN. Belongings and IVB medic and Insulin PEN given to roberth RN. .
--- NOTE | 2019-07-11 12:47 | NUR ---
NURSE NOTES: received report from ROSEY Contreras. patient will be transferred to [facility] under Dr. giorgio campo.
[2019-07-11] MEDS ORDERED: Docusate 100mg cap ORAL SCH (13:00)
--- NOTE | 2019-07-11 13:30 | NUR ---
NURSE NOTES: patient transferred to room 302-[address] Ward care. patient is a&Ox4. verbally responsive. no respiratory distress noted. no c/o pain at this time. NO IV access. MD is aware. fall risk. Hx of fall at home. fall risk sign on the wall. RN provided yellow socks for safety. Patient refused to wear and said she has her own socks to wear. Patient ambulatory. bed in the lowest position and locked. call light within reach. checked and counted belongings with ROSEY Leyva and patient. everything on the list with patient. will continue to provide plan of care.
[2019-07-11] MEDS ORDERED: Miralax 17gm pkt ORAL PRN (13:38)
[2019-07-11] MEDS ORDERED: Albuterol/Ipratropium 3ml neb HHN PRN (13:38)
[2019-07-11] MEDS ORDERED: Morphine Sulfate 2mg/ml Inj(IV/IM USE ONLY) IVP PRN (13:38)
[2019-07-11] MEDS ORDERED: Zolpidem 5mg tab ORAL PRN (13:39)
[2019-07-11 14:55] VITALS: BP 157/86
[2019-07-11 16:00] VITALS: BP 172/78
--- NOTE | 2019-07-11 16:00 | NUR ---
NURSE NOTES: Patient's sister,Coleen is at the bed side. the sister wants to talk to DR. Lozano regarding her sister's kidney function and gave her phone number to RN.
--- NOTE | 2019-07-11 17:36 | Cardiology Report ---
APPROVED REPORT EKG Measurement Heart [id number] Normal sinus rhythm Abnormal ECG
[2019-07-11 18:16] VITALS: BP 154/78
--- NOTE | 2019-07-11 18:16 | NUR ---
NURSE NOTES: blood pressure 172/78@1704. given clonidine 0.1mg tab po prn. rechecked blood pressure 154/78@1810
--- NOTE | 2019-07-11 19:12 | NUR ---
HAND-OFF: Report given to ROSEY Zamora.
[2019-07-11 20:00] VITALS: BP 147/74
[2019-07-11] MEDS: Iron Sucrose 100 MG in NS 55 ML IV SCH ×2 (20:36→21:00)
--- NOTE | 2019-07-11 21:28 | NUR ---
NURSE NOTES: No IV access, patient has venofer scheduled but patient refusing IV insertion. aware.
[2019-07-12] VITALS: BP 137/71
[2019-07-12] MEDS: NovoLOG Insulin Flexpen SUBQ SCH (06:30)
--- NOTE | 2019-07-12 07:26 | NUR ---
HAND-OFF: Report given to ROSEY Robertson.
--- NOTE | 2019-07-12 07:30 | NUR ---
NURSE NOTES: Patient is awake. Stable. Denies pain or SOB. Patient encouraged to use call light for assistance, verbalized understanding. Patient is in bed in locked and lowest position with call light within reach. All needs met at this time. Will continue to monitor.
[2019-07-12 07:47] LABS: BASOPHILS % (AUTO) 0.5 % (0.0-2.0); EOSINOPHILS % (AUTO) 0.5 % (0.0-3.0); HEMATOCRIT 28.7 % (37.0-47.0); HEMOGLOBIN 9.3 G/DL (12.0-16.0); LYMPHOCYTES % (AUTO) 19.2 % (20.0-45.0); MEAN CORPUSCULAR VOLUME 87 FL (80-99); MONOCYTES % (AUTO) 5.4 % (1.0-10.0); NEUTROPHILS % (AUTO) 74.5 % (45.0-75.0); PLATELET COUNT 214 K/UL (150-450); RED BLOOD COUNT 3.31 M/UL (4.20-5.40); RED CELL DISTRIBUTION WIDTH 12.5 % (11.6-14.8); WHITE BLOOD COUNT 8.3 K/UL (4.8-10.8)
[2019-07-12 08:00] VITALS: BP 143/96
[2019-07-12 08:09] LABS: ALANINE AMINOTRANSFERASE 16 U/L (12-78); ALBUMIN 3.1 G/DL (3.4-5.0); ALBUMIN/GLOBULIN RATIO 0.8 (1.0-2.7); ALKALINE PHOSPHATASE 85 U/L (46-116); ANION GAP 14 mmol/L (5-15); ASPARTATE AMINO TRANSFERASE 16 U/L (15-37); BILIRUBIN,TOTAL 0.2 MG/DL (0.2-1.0); BLOOD UREA NITROGEN 47 mg/dL (7-18); CALCIUM 9.5 MG/DL (8.5-10.1); CARBON DIOXIDE 22 MMOL/L (21-32); CHLORIDE 102 MMOL/L (98-107); CREATININE 5.9 MG/DL (0.55-1.30); PHOSPHORUS 6.4 MG/DL (2.5-4.9); POTASSIUM 3.2 MMOL/L (3.5-5.1); SODIUM 138 MMOL/L (136-145)
--- NOTE | 2019-07-12 09:04 | General Progress Note ---
Assessment/Plan Problem List: (1) ATN (acute tubular necrosis) ICD Codes: N17.0 - Acute kidney failure with tubular necrosis SNOMED: 89127409 (2) Diabetes mellitus ICD Codes: E11.9 - Type 2 diabetes mellitus without complications SNOMED: 01323937 (3) Acute renal failure ICD Codes: N17.9 - Acute kidney failure, unspecified SNOMED: 36232024 Qualifiers: Qualified Codes: N17.9 - Acute kidney failure, unspecified (4) Anemia ICD Codes: D64.9 - Anemia, unspecified SNOMED: 055173765 Qualifiers: Qualified Codes: D64.9 - Anemia, unspecified (5) Hyperkalemia ICD Codes: E87.5 - Hyperkalemia SNOMED: 40344121 (6) Renal failure (ARF), acute on chronic ICD Codes: N17.9 - Acute kidney failure, unspecified; N18.9 - Chronic kidney disease, unspecified SNOMED: 415669132 Status: stable, progressing Assessment/Plan: pt diet neph eval cbc bmp am psyc eval /transfer Subjective Constitutional: Reports: weakness Allergies: Coded Allergies: NO KNOWN ALLERGIES (Unverified Allergy, Unknown, 06/22/15) All Systems: reviewed and negative except above Subjective sleepy calm in room Objective Last 24 Hour Vital Signs Date Time Temp Pulse Resp B/P (MAP) Pulse Ox O2 Delivery O2 Flow Rate FiO2 07/12/19 00:00 97.9 95 20 137/71 (93) 95 07/11/19 20:00 98.3 97 20 147/74 (98) 95 07/11/19 19:52 96 20 95 Room Air 21 07/11/19 18:16 154/78 (103) 07/11/19 17:04 172/78 07/11/19 16:00 Room Air 07/11/19 16:00 97.5 99 20 172/78 (109) 95 07/11/19 14:55 98.0 96 18 157/86 (109) 100 07/11/19 12:00 Room Air 07/11/19 12:00 98.0 96 18 180/79 (112) 100 07/11/19 09:48 89 164/78 Intake and Output 07/11/19 07/12/19 19:00 07:00 Intake Total 300 ml 250 ml Balance 300 ml 250 ml Intake Oral 300 ml 250 ml # Voids 1 # Bowel Movements 1 Laboratory Tests 07/12/19 07:30: White Blood Count 8.3#, Red Blood Count 3.31L, Hemoglobin 9.3L, Hematocrit 28.7L , Mean Corpuscular Volume 87, Mean Corpuscular Hemoglobin 28.2, Mean Corpuscular Hemoglobin Concent 32.5, Red Cell Distribution Width 12.5, Platelet Count 214, Mean Platelet Volume 4.3L, Neutrophils (%) (Auto) 74.5, Lymphocytes ( %) (Auto) 19.2L, Monocytes (%) (Auto) 5.4, Eosinophils (%) (Auto) 0.5, Basophils (%) (Auto) 0.5, Sodium Level 138, Potassium Level 3.2L, Chloride Level 102, Carbon Dioxide Level 22, Anion Gap 14, Blood Urea Nitrogen 47H, Creatinine 5.9H, Estimat Glomerular Filtration Rate 8.8, Glucose Level 104, Calcium Level 9.5, Phosphorus Level 6.4H, Magnesium Level 1.9, Total Bilirubin 0.2, Aspartate Amino Transf (AST/SGOT) 16, Alanine Aminotransferase (ALT/SGPT) 16, Alkaline Phosphatase 85, Total Protein 7.2, Albumin 3.1L, Globulin 4.1, Albumin/Globulin Ratio 0.8L Height (Feet): 5 Height (Inches): 2.00 Weight (Pounds): 116 General Appearance: lethargic EENT: normal ENT inspection Neck: normal alignment Cardiovascular: normal peripheral pulses, normal rate, regular rhythm Respiratory/Chest: chest wall non-tender, lungs clear, normal breath sounds Abdomen: normal bowel sounds, non tender, soft Edema: no edema noted Arm (L), no edema noted Arm (R), no edema noted Leg (L), no edema noted Leg (R), no edema noted Pedal (L), no edema noted Pedal (R), no edema noted Generalized Neurologic: motor weakness Skin: normal pigmentation, warm/dry Sammy Ward DO Jul 12, 2019 09:04
--- NOTE | 2019-07-12 09:16 | Hematology/Onc Progress Note ---
Assessment/Plan Assessment/Plan Assessment and recs: # Anemia due to underlying iron deficiency and also from kidney disease --> anemia panel has been ordered --> r/o occult blood --> r/o hemolysis, retic, bili --> transfuse if hgb <8 as needed ==> trend 9.8-->8.6-->9.3 ---> STARTED ON IV IRON x 5 DAYS TOTAL # Anemia due to folic acid deficiency --> started on folic acid daily --> per renal # Hyperkalemia, administer kayxelate --> has been refusing care # Acute renal failure, discussion with patient reluctant to undergo treatment --> recommending hd as per renal # Noncompliance --> continue to career development counselor re proper care Greatly appreciate consultation. Subjective Constitutional: Denies: no symptoms, chills, fever, malaise, weakness, other HEENT: Denies: no symptoms, eye pain, blurred vision, tearing, double vision, ear pain, ear discharge, nose pain, nose congestion, throat pain, throat swelling, mouth pain, mouth swelling, other Respiratory: Denies: no symptoms, cough, shortness of breath, SOB with excertion, SOB at rest, sputum, wheezing, other Gastrointestinal/Abdominal: Denies: no symptoms, abdomen distended, abdominal pain, black stools, tarry stools, blood in stool, constipated, diarrhea, difficulty swallowing, nausea, poor appetite, poor fluid intake, rectal bleeding , vomiting, other Genitourinary: Denies: no symptoms, burning, discharge, frequency, flank pain, hematuria, incontinence, pain, urgency, other Neurologic/Psychiatric: Denies: no symptoms, anxiety, depressed, emotional problems, headache, numbness, paresthesia, pre-existing deficit, seizure, tingling, tremors, weakness, other Endocrine: Denies: no symptoms, excessive sweating, flushing, intolerance to cold, intolerance to heat, increased hunger, increased thirst, increased urine, unexplained weight gain, unexplained weight loss, other Allergies: Coded Allergies: NO KNOWN ALLERGIES (Unverified Allergy, Unknown, 06/22/15) Subjective 07/12: no bleeding, no f/c, no major changes overnight, labs reviewed Objective Objective Current Medications Medications (Trade) Dose Ordered Sig/Tamra Route PRN Reason Start Time Stop Time Status Last Admin Dose Admin Acetaminophen (Tylenol) 650 mg Q4H PRN ORAL T>100.5 07/11/19 13:40 08/10/19 13:39 Albuterol/ Ipratropium (Albuterol/ Ipratropium) 3 ml Q6H PRN HHN dyspnea 07/11/19 13:38 07/16/19 13:37 Amlodipine Besylate (Norvasc) 10 mg DAILY ORAL 07/12/19 09:00 08/09/19 08:59 Clonidine HCl (Catapres Tab) 0.1 mg Q4H PRN ORAL SBP > 160 mmHg 07/11/19 13:38 08/10/19 13:37 07/11/19 17:04 Dextrose (Dextrose 50%) 25 ml Q30M PRN IV Hypoglycemia 07/11/19 13:45 08/08/19 14:44 Dextrose (Dextrose 50%) 50 ml Q30M PRN IV Hypoglycemia 07/11/19 13:45 08/08/19 14:44 Docusate Sodium (Colace) 100 mg TID ORAL 07/11/19 18:00 08/10/19 17:59 07/11/19 17:04 Epoetin Frank (Epoetin Frank-EPBX(NON ESRD)) 10,000 unit FRI-FRI-FRI SUBQ 07/12/19 21:00 08/11/19 20:59 Folic Acid (Folate) 2 mg DAILY ORAL 07/12/19 09:00 08/09/19 08:59 Heparin Sodium (Porcine) (Heparin 5000 units/ml) 5,000 units EVERY 12 HOURS SUBQ 07/11/19 21:00 08/08/19 20:59 07/11/19 20:39 Insulin Aspart (NovoLOG) BEFORE MEALS AND HS SUBQ 07/11/19 16:30 08/08/19 16:29 07/11/19 20:37 Iron Sucrose 100 mg/Sodium Chloride 60 ml @ 240 mls/hr BEDTIME IV 07/11/19 21:00 07/15/19 21:14 Morphine Sulfate (Morphine Sulfate) 1 mg Q4H PRN IVP PAIN 4-10 07/11/19 13:38 07/18/19 13:37 Ondansetron HCl (Zofran) 4 mg Q6H PRN IVP Nausea & Vomiting 07/11/19 13:38 08/10/19 13:37 Pantoprazole (Protonix) 40 mg DAILY ORAL 07/12/19 09:00 08/09/19 08:59 Polyethylene Glycol (Miralax) 17 gm HSPRN PRN ORAL Constipation 07/11/19 13:38 08/10/19 13:37 Sevelamer Carbonate (Renvela) 1,600 mg THREE TIMES A DAY ORAL 07/11/19 18:00 08/09/19 08:59 07/11/19 17:04 Zolpidem Tartrate (Ambien) 5 mg HSPRN PRN ORAL Insomnia 07/11/19 13:39 07/18/19 13:38 Last 24 Hour Vital Signs Date Time Temp Pulse Resp B/P (MAP) Pulse Ox O2 Delivery O2 Flow Rate FiO2 07/12/19 00:00 97.9 95 20 137/71 (93) 95 07/11/19 20:00 98.3 97 20 147/74 (98) 95 07/11/19 19:52 96 20 95 Room Air 07/11/19 18:16 154/78 (103) 07/11/19 17:04 172/78 07/11/19 16:00 Room Air 07/11/19 16:00 97.5 99 20 172/78 (109) 95 07/11/19 14:55 98.0 96 18 157/86 (109) 100 07/11/19 12:00 Room Air 07/11/19 12:00 98.0 96 18 180/79 (112) 100 07/11/19 09:48 89 164/78 07/11/19 08:00 98.3 89 18 164/78 (106) 100 07/11/19 08:00 Room Air 07/11/19 08:00 87 07/11/19 04:00 Room Air 07/11/19 03:38 80 07/11/19 00:00 Room Air 07/10/19 23:38 81 07/10/19 20:00 84 20 99 Room Air 21 07/10/19 20:00 Room Air 07/10/19 19:26 80 07/10/19 16:00 98.8 97 18 142/84 (103) 100 07/10/19 16:00 Room Air 07/10/19 15:30 99 07/10/19 12:00 98.1 95 18 120/73 (89) 94 07/10/19 12:00 Room Air 07/10/19 11:40 97 07/10/19 10:07 90 137/90 Intake and Output 07/11/19 07/12/19 19:00 07:00 Intake Total 300 ml 250 ml Balance 300 ml 250 ml Intake Oral 300 ml 250 ml # Voids 1 # Bowel Movements 1 Labs Test 07/09/19 11:05 07/09/19 16:15 07/10/19 03:40 07/10/19 04:30 White Blood Count 6.9 K/UL (4.8-10.8) 7.1 K/UL (4.8-10.8) Red Blood Count 3.52 M/UL (4.20-5.40) 3.12 M/UL (4.20-5.40) Hemoglobin 9.8 G/DL (12.0-16.0) 8.6 G/DL (12.0-16.0) Hematocrit 31.3 % (37.0-47.0) 27.6 % (37.0-47.0) Mean Corpuscular Volume 89 FL (80-99) 89 FL (80-99) Mean Corpuscular Hemoglobin 27.9 PG (27.0-31.0) 27.7 PG (27.0-31.0) Mean Corpuscular Hemoglobin Concent 31.4 G/DL (32.0-36.0) 31.2 G/DL (32.0-36.0) Red Cell Distribution Width 13.3 % (11.6-14.8) 13.3 % (11.6-14.8) Platelet Count 233 K/UL (150-450) 213 K/UL (150-450) Mean Platelet Volume 4.1 FL (6.5-10.1) 4.1 FL (6.5-10.1) Neutrophils (%) (Auto) 58.5 % (45.0-75.0) 52.3 % (45.0-75.0) Lymphocytes (%) (Auto) 30.1 % (20.0-45.0) 38.1 % (20.0-45.0) Monocytes (%) (Auto) 8.4 % (1.0-10.0) 7.6 % (1.0-10.0) Eosinophils (%) (Auto) 2.0 % (0.0-3.0) 1.1 % (0.0-3.0) Basophils (%) (Auto) 0.9 % (0.0-2.0) 0.9 % (0.0-2.0) Prothrombin Time 9.5 SEC (9.30-11.50) Prothromb Time International Ratio 0.9 (0.9-1.1) Activated Partial Thromboplast Time 26 SEC (23-33) Sodium Level 135 MMOL/L (136-145) 135 MMOL/L (136-145) 138 MMOL/L (136-145) Potassium Level 6.5 MMOL/L (3.5-5.1) 5.9 MMOL/L (3.5-5.1) 5.9 MMOL/L (3.5-5.1) Chloride Level 104 MMOL/L (98-107) 104 MMOL/L (98-107) 106 MMOL/L (98-107) Carbon Dioxide Level 19 MMOL/L (21-32) 21 MMOL/L (21-32) 20 MMOL/L (21-32) Anion Gap 10 mmol/L (5-15) 9 mmol/L (5-15) 12 mmol/L (5-15) Blood Urea Nitrogen 51 mg/dL (7-18) 51 mg/dL (7-18) 49 mg/dL (7-18) Creatinine 6.8 MG/DL (0.55-1.30) 6.9 MG/DL (0.55-1.30) 7.0 MG/DL (0.55-1.30) Estimat Glomerular Filtration Rate 7.5 mL/min (>60) 7.5 mL/min (>60) 7.4 mL/min (>60) Glucose Level 112 MG/DL (74-106) 140 MG/DL (74-106) 72 MG/DL (74-106) Calcium Level 9.4 MG/DL (8.5-10.1) 9.9 MG/DL (8.5-10.1) 9.1 MG/DL (8.5-10.1) Total Bilirubin 0.2 MG/DL (0.2-1.0) 0.2 MG/DL (0.2-1.0) Aspartate Amino Transf (AST/SGOT) 14 U/L (15-37) 14 U/L (15-37) Alanine Aminotransferase (ALT/SGPT) 20 U/L (12-78) 19 U/L (12-78) Alkaline Phosphatase 93 U/L (46-116) 78 U/L (46-116) Total Creatine Kinase 77 U/L (26-308) 77 U/L (26-308) Troponin I 0.000 ng/mL (0.000-0.056) 0.000 ng/mL (0.000-0.056) Pro-B-Type Natriuretic Peptide 314 pg/mL (0-125) 437 pg/mL (0-125) Total Protein 7.5 G/DL (6.4-8.2) 6.8 G/DL (6.4-8.2) Albumin 3.2 G/DL (3.4-5.0) 2.9 G/DL (3.4-5.0) Globulin 4.3 g/dL 3.9 g/dL Albumin/Globulin Ratio 0.7 (1.0-2.7) 0.7 (1.0-2.7) Lipase 143 U/L (73-393) Uric Acid 6.2 MG/DL (2.6-7.2) 6.4 MG/DL (2.6-7.2) Hemoglobin A1c 7.9 % (4.3-6.0) Phosphorus Level 6.0 MG/DL (2.5-4.9) Magnesium Level 2.1 MG/DL (1.8-2.4) Iron Level 44 ug/dL (50-175) Total Iron Binding Capacity 121 ug/dL (250-450) Percent Iron Saturation 36 % (15-50) Unsaturated Iron Binding 77 ug/dL (112-346) Ferritin 180 NG/ML (8-388) C-Reactive Protein, Quantitative < 0.4 mg/dL (0.00-0.90) Triglycerides Level 115 MG/DL (30-150) Cholesterol Level 119 MG/DL (< 200) LDL Cholesterol 58 mg/dL (<100) HDL Cholesterol 43 MG/DL (40-60) Cholesterol/HDL Ratio 2.8 (3.3-4.4) Vitamin B12 Level 733 PG/ML (193-986) Folate 5.3 NG/ML (8.6-58.9) Thyroid Stimulating Hormone (TSH) 2.176 uiU/mL (0.358-3.740) Urine Color Pale yellow Urine Appearance Clear Urine pH 6 (4.5-8.0) Urine Specific [place] 1.010 (1.005-1.035) Urine Protein 4+ (NEGATIVE) Urine Glucose (UA) Negative (NEGATIVE) Urine Ketones Negative (NEGATIVE) Urine Blood 1+ (NEGATIVE) Urine Nitrite Negative (NEGATIVE) Urine Bilirubin Negative (NEGATIVE) Urine Urobilinogen Normal MG/DL (0.0-1.0) Urine Leukocyte Esterase Negative (NEGATIVE) Urine RBC 2-4 /HPF (0 - 2) Urine WBC 0-2 /HPF (0 - 2) Urine Squamous Epithelial Cells Few /LPF (NONE/OCC) Urine Bacteria Few /HPF (NONE) Urine Hyaline Casts 0-2 /LPF (NONE) Urine Fine Granular Casts 0-2 /LPF (NONE) Urine Eosinophils None seen (NONE SEEN) Test 07/11/19 04:10 07/12/19 07:30 White Blood Count 5.2 K/UL (4.8-10.8) 8.3 K/UL (4.8-10.8) Red Blood Count 3.08 M/UL (4.20-5.40) 3.31 M/UL (4.20-5.40) Hemoglobin 8.5 G/DL (12.0-16.0) 9.3 G/DL (12.0-16.0) Hematocrit 26.8 % (37.0-47.0) 28.7 % (37.0-47.0) Mean Corpuscular Volume 87 FL (80-99) 87 FL (80-99) Mean Corpuscular Hemoglobin 27.8 PG (27.0-31.0) 28.2 PG (27.0-31.0) Mean Corpuscular Hemoglobin Concent 31.8 G/DL (32.0-36.0) 32.5 G/DL (32.0-36.0) Red Cell Distribution Width 12.8 % (11.6-14.8) 12.5 % (11.6-14.8) Platelet Count 193 K/UL (150-450) 214 K/UL (150-450) Mean Platelet Volume 4.3 FL (6.5-10.1) 4.3 FL (6.5-10.1) Neutrophils (%) (Auto) 44.4 % (45.0-75.0) 74.5 % (45.0-75.0) Lymphocytes (%) (Auto) 42.5 % (20.0-45.0) 19.2 % (20.0-45.0) Monocytes (%) (Auto) 10.4 % (1.0-10.0) 5.4 % (1.0-10.0) Eosinophils (%) (Auto) 1.5 % (0.0-3.0) 0.5 % (0.0-3.0) Basophils (%) (Auto) 1.2 % (0.0-2.0) 0.5 % (0.0-2.0) Sodium Level 140 MMOL/L (136-145) 138 MMOL/L (136-145) Potassium Level 4.2 MMOL/L (3.5-5.1) 3.2 MMOL/L (3.5-5.1) Chloride Level 106 MMOL/L (98-107) 102 MMOL/L (98-107) Carbon Dioxide Level 23 MMOL/L (21-32) 22 MMOL/L (21-32) Anion Gap 11 mmol/L (5-15) 14 mmol/L (5-15) Blood Urea Nitrogen 49 mg/dL (7-18) 47 mg/dL (7-18) Creatinine 6.6 MG/DL (0.55-1.30) 5.9 MG/DL (0.55-1.30) Estimat Glomerular Filtration Rate 7.9 mL/min (>60) 8.8 mL/min (>60) Glucose Level 99 MG/DL (74-106) 104 MG/DL (74-106) Calcium Level 8.9 MG/DL (8.5-10.1) 9.5 MG/DL (8.5-10.1) Phosphorus Level 7.5 MG/DL (2.5-4.9) 6.4 MG/DL (2.5-4.9) Total Bilirubin 0.2 MG/DL (0.2-1.0) 0.2 MG/DL (0.2-1.0) Aspartate Amino Transf (AST/SGOT) 13 U/L (15-37) 16 U/L (15-37) Alanine Aminotransferase (ALT/SGPT) 16 U/L (12-78) 16 U/L (12-78) Alkaline Phosphatase 82 U/L (46-116) 85 U/L (46-116) Total Protein 6.5 G/DL (6.4-8.2) 7.2 G/DL (6.4-8.2) Albumin 2.7 G/DL (3.4-5.0) 3.1 G/DL (3.4-5.0) Globulin 3.8 g/dL 4.1 g/dL Albumin/Globulin Ratio 0.7 (1.0-2.7) 0.8 (1.0-2.7) Magnesium Level 1.9 MG/DL (1.8-2.4) Height (Feet): 5 Height (Inches): 2.00 Weight (Pounds): 116 Objective Vitals: reviewed, normal Gen: alert, non-toxic, Chronically Ill ENT: poor dentition Pulm: lungs clear CV: regular rate, rhythm, no edema Gi: normal bowel sounds, non tender Neurologic: oriented - X2 Psychiatric: Argumentative and refusing care at times +++ Justus Tsang MD Jul 12, 2019 09:16
[2019-07-12] MEDS: Docusate 100mg cap ORAL SCH (09:29)
[2019-07-12] MEDS: Heparin 5000 units/ml inj SUBQ SCH (09:35)
[2019-07-12] MEDS ORDERED: RENVELA800 MG ORAL (10:15)
[2019-07-12] MEDS ORDERED: NORVASC10 MG ORAL (10:15)
[2019-07-12] MEDS ORDERED: NOVOLOG100 UNITS1 SUBQ (10:15)
--- NOTE | 2019-07-12 10:15 | NUR ---
NURSE NOTES: Dr. Lozano and RN made rounds together. Patient's sister Coleen called [facility] regarding plan of care for patient. Dr. Lozano spoke to Coleen about following up with kidney doctor. Dr. Lozano communicated to RN that sister Coleen is making appointment for patient with Dr. Durham.
--- NOTE | 2019-07-12 10:22 | Diagnostic Imaging Report ---
Indication:Elevated Bun and Creatinine. Technique: Grayscale and duplex Doppler imaging of the kidneys performed. Comparison: None Findings: Kidneys are abnormally echogenic and small. The right kidney measures 7.8 cm. in length. The left kidney measures 7.8 cm. in length. The IVC is patent. Urinary bladder is unremarkable. IMPRESSION: Medical renal disease
--- NOTE | 2019-07-12 10:29 | NUR ---
NURSE NOTES: RN made rounds with Dr. Roberts, Dr. Drake, and Dr. Lozano. Patient does not allow doctors to inform patient of plan. Patient is nonagreeable and hostile towards medical staff. Patient claimed, "the nurses here are rude." Patient refuses treatment from doctors and stated, "I don't need you. I have my own doctor." All safety measures provided. Will continue to monitor.
--- NOTE | 2019-07-12 10:48 | Nephrology Progress Note ---
Assessment/Plan Problem List: (1) Renal failure (ARF), acute on chronic (2) Hyperkalemia Assessment: resolved (3) Hypertension (4) Diabetes mellitus Assessment acute on chronic renal failure Encephalopathy HyperKalemia DM HTN . Plan 07/12: Called patient's sister at the request of the patient. Sister knows that patient has kidney failure and she wants her to be followed by Dr Sanchez ( Ethics Instructor) who she herself visits for kidney problem. I stressed urgent follow up with Dr Sanchez. Discussed with Dr Roberts no much to add from renal stand point at this time by me will sign off- Reconsult as needed 07/11: Patient states that have asked her Clinical Education Specialist to come in and decide for her regarding the need for dialysis mean while the high K is improved with kayexelate 07/10: Psych eval and the unsubstantiated accusations in psych consult noted patient refuses po Kayexelate at presence of the RN, patient was offered to take the medication that is offered to her and need for dialysis at least temporary to correct life threatening high potassium- refused patient has pulled out the IV line earlier and refuses to have one in. continue per PMD and Psych BP and Bs control renal diet as possible avoid nephrotoxics monitor renal parameters MAIK pending 2 D Echo 60% EjFx add po folic acid and phos binders change diet to renal Subjective ROS Limited/Unobtainable: No Interval Events/Complaints pacing in hallway Objective Objective Last 24 Hour Vital Signs Date Time Temp Pulse Resp B/P (MAP) Pulse Ox O2 Delivery O2 Flow Rate FiO2 07/12/19 09:31 102 143/96 07/12/19 09:00 Room Air 07/12/19 08:00 97.1 102 20 143/96 (112) 99 07/12/19 00:00 97.9 95 20 137/71 (93) 95 07/11/19 20:00 98.3 97 20 147/74 (98) 95 07/11/19 19:52 96 20 95 Room Air 21 07/11/19 18:16 154/78 (103) 07/11/19 17:04 172/78 07/11/19 16:00 Room Air 07/11/19 16:00 97.5 99 20 172/78 (109) 95 07/11/19 14:55 98.0 96 18 157/86 (109) 100 07/11/19 12:00 Room Air 07/11/19 12:00 98.0 96 18 180/79 (112) 100 Intake and Output 07/11/19 07/12/19 18:59 06:59 Intake Total 300 ml 250 ml Balance 300 ml 250 ml Intake Oral 300 ml 250 ml # Voids 1 # Bowel Movements 1 Current Medications Medications (Trade) Dose Ordered Sig/Tamra Route PRN Reason Start Time Stop Time Status Last Admin Dose Admin Acetaminophen (Tylenol) 650 mg Q4H PRN ORAL T>100.5 07/11/19 13:40 08/10/19 13:39 Albuterol/ Ipratropium (Albuterol/ Ipratropium) 3 ml Q6H PRN HHN dyspnea 07/11/19 13:38 07/16/19 13:37 Amlodipine Besylate (Norvasc) 10 mg DAILY ORAL 07/12/19 09:00 08/09/19 08:59 07/12/19 09:31 Clonidine HCl (Catapres Tab) 0.1 mg Q4H PRN ORAL SBP > 160 mmHg 07/11/19 13:38 08/10/19 13:37 07/11/19 17:04 Dextrose (Dextrose 50%) 25 ml Q30M PRN IV Hypoglycemia 07/11/19 13:45 08/08/19 14:44 Dextrose (Dextrose 50%) 50 ml Q30M PRN IV Hypoglycemia 07/11/19 13:45 08/08/19 14:44 Docusate Sodium (Colace) 100 mg TID ORAL 07/11/19 18:00 08/10/19 17:59 07/12/19 09:29 Epoetin Frank (Epoetin Frank-EPBX(NON ESRD)) 10,000 unit MON-WED-FRI SUBQ 07/12/19 21:00 08/11/19 20:59 Folic Acid (Folate) 2 mg DAILY ORAL 07/12/19 09:00 08/09/19 08:59 07/12/19 09:30 Heparin Sodium (Porcine) (Heparin 5000 units/ml) 5,000 units EVERY 12 HOURS SUBQ 07/11/19 21:00 08/08/19 20:59 07/12/19 09:35 Insulin Aspart (NovoLOG) BEFORE MEALS AND HS SUBQ 07/11/19 16:30 08/08/19 16:29 07/11/19 20:37 Iron Sucrose 100 mg/Sodium Chloride 60 ml @ 240 mls/hr BEDTIME IV 07/11/19 21:00 07/15/19 21:14 Morphine Sulfate (Morphine Sulfate) 1 mg Q4H PRN IVP PAIN 4-10 07/11/19 13:38 07/18/19 13:37 Ondansetron HCl (Zofran) 4 mg Q6H PRN IVP Nausea & Vomiting 07/11/19 13:38 08/10/19 13:37 Pantoprazole (Protonix) 40 mg DAILY ORAL 07/12/19 09:00 08/09/19 08:59 07/12/19 09:31 Polyethylene Glycol (Miralax) 17 gm HSPRN PRN ORAL Constipation 07/11/19 13:38 08/10/19 13:37 Sevelamer Carbonate (Renvela) 1,600 mg THREE TIMES A DAY ORAL 07/11/19 18:00 08/09/19 08:59 07/12/19 09:31 Zolpidem Tartrate (Ambien) 5 mg HSPRN PRN ORAL Insomnia 07/11/19 13:39 07/18/19 13:38 Laboratory Tests 07/12/19 07:30: White Blood Count 8.3#, Red Blood Count 3.31L, Hemoglobin 9.3L, Hematocrit 28.7L , Mean Corpuscular Volume 87, Mean Corpuscular Hemoglobin 28.2, Mean Corpuscular Hemoglobin Concent 32.5, Red Cell Distribution Width 12.5, Platelet Count 214, Mean Platelet Volume 4.3L, Neutrophils (%) (Auto) 74.5, Lymphocytes ( %) (Auto) 19.2L, Monocytes (%) (Auto) 5.4, Eosinophils (%) (Auto) 0.5, Basophils (%) (Auto) 0.5, Sodium Level 138, Potassium Level 3.2L, Chloride Level 102, Carbon Dioxide Level 22, Anion Gap 14, Blood Urea Nitrogen 47H, Creatinine 5.9H, Estimat Glomerular Filtration Rate 8.8, Glucose Level 104, Calcium Level 9.5, Phosphorus Level 6.4H, Magnesium Level 1.9, Total Bilirubin 0.2, Aspartate Amino Transf (AST/SGOT) 16, Alanine Aminotransferase (ALT/SGPT) 16, Alkaline Phosphatase 85, Total Protein 7.2, Albumin 3.1L, Globulin 4.1, Albumin/Globulin Ratio 0.8L Height (Feet): 5 Height (Inches): 2.00 Weight (Pounds): 116 General Appearance: no apparent distress Objective not want to be examined Yovany Lozano MD Jul 12, 2019 10:48
[2019-07-12] MEDS ORDERED: NS 275ml ONE (10:51)
[2019-07-12] MEDS ORDERED: Tubing IV Secondary IV ONE (10:51)
--- NOTE | 2019-07-12 10:57 | NUR ---
NURSE NOTES: Discharge orders noted. Dr. Ward aware. Waiting for patient's friend to pick her up from hospital.
[2019-07-12 11:42] VITALS: BP 171/80
--- NOTE | 2019-07-12 11:51 | NUR ---
NURSE NOTES: Patient discharged home as ordered. Stable. Denies pain or SOB. AOx4. Skin is clean, dry, and intact. Patient was given thorough discharge instructions by RN. Patient verbalized understanding. Patient's sister Coleen made appointment for patient with Dr. Durham and patient verbalized that she will follow up with him. Patient has written information regarding her condition, patient read aloud her discharge instructions and did not have any questions for RN. Patient appears ready to discharge with the knowledge that she needs to follow up with her primary MD. Patient has all belongings. Patient has prescriptions for medication, medication instructions given to patient, patient verbalized understanding. No IV access. Patient assisted into private vehicle by MANAGER CLEANING without incident. Addendum: 07/12/19 at 1348 by NICO DUDLEY RN Correction of doctor's name. Dr. Sanchez is the correct bowling floor manager.
--- NOTE | 2019-07-12 12:09 | NUR ---
*-* INSURANCE *-* ALL CLINICALS HAVE BEEN FAXED TO: [facility] P: [phone] F: [phone] (FAX CLINICALS)
--- NOTE | 2019-07-12 13:49 | NUR ---
NURSE NOTES: Spoke to Henny from Dr. Sanchez's office regarding Julee Solis's appointment on saturday 07/14.
[2019-07-12] MEDS ORDERED: Epoetin Alfa-EPBX (NON ESRD)10,000 unit/ml vial SUBQ SCH ×2 (21:00)
--- NOTE | 2019-07-13 08:52 | Discharge Summary ---
Discharge Summary Discharge Summary _ DATE OF ADMISSION: 07/09/2019 DATE OF DISCHARGE: 07/12/2019 DISCHARGED BY: Dr. Ward REASON FOR ADMISSION: 59 years old female with past medical history of hypertension, COPD, asthma, diabetes mellitus, presented to emergency room for evaluation. Patient apparently had physical exam done recently, and laboratory work-up revealed abnormal kidney function. Patient was instructed by her primary care provider to come to the hospital for further evaluation and management. Patient denied any pain initially. No nausea, no vomiting ,no diarrhea. No dysuria. No productive cough. No skin rashes. No chest pain or shortness of breath . upon evaluation blood pressure was elevated 180/92. Patient was also tachycardic with heart rate of 108. Laboratory work-up revealed no leukocytosis , hemoglobin 9.8 , hematocrit 31.3 , platelet count 233. Glucose 112. Potassium 6.5. BUN 51, creatinine 6.8 . Troponin negative , EKG revealed sinus rhythm , no acute ischemic changes, pro BNP 314. Stable LFT and lipase. Uric acid 6.2. . Urinalysis revealed +4 protei, evidence of hyaline casts and fine granular casts , no evidence of urinary tract infection. No urine eosinophils were seen. Chest x-ray revealed no acute cardiopulmonary pathology. In emergency department patient treated for hyperkalemia. Patient later complained of bilateral upper abdominal discomfort and received analgesia and antiemetic. Patient subsequently admitted to telemetry floor for further management. CONSULTANTS: shuttle repairer Dr. Lozano networks software consultant/oncologist Dr. Tsang psychiatrist [facility]: Patient admitted to telemetry floor. Monument Carver seen the patient. Renal ultrasound demonstrated medical renal disease. Hyperkalemia was further treated. Renal diet provided. Nephrotoxic's were avoided. Renal parameters and electrolytes were closely monitored, electrolytes corrected as needed. Echocardiogram demonstrated preserved ejection fracture and no evidence of wall motion abnormality. Patient was explained about gravity of her medical condition : creatinine from 4.5 in October 2018 up to 6.8 on this admission. Patient had no insight about gravity of her condition , and shuttle repairer recommended psychiatric evaluation. Per psychiatrist patient had anxiety disorder and cluster B personality. Patient was reluctant to start any psychiatric medication at this time. Creatinine slightly trended down from initial 6.8 down to 5.9 . Phospo binders added to existing regimen. Patient declined hemodialysis. Patient 's condition was discharged with patient's sister , who wants patient to follow-up with Dr. Sanchez / her outpatient shuttle repairer. Monument Carver encouraged patient and her sister urgently follow up with nephrology as outpatient. Patient needs dialysis. Hemoglobin and hematocrit were closely monitored with goal to keep hemoglobin above 7. Anemia work-up was consistent with anemia of chronic disease along with anemia of iron deficiency, with ferritin 180. Also noted low folic acid level. Patient started on folate. Patient received Epogen 3 times a week . Patient received IV iron while in the hospital. Prior to discharge hemoglobin 9.3 hematocrit 28.7 Blood pressure was managed with calcium channel kathryn, stabilized. Echocardiogram revealed preserved ejection fraction of 60% with borderline left ventricular hypertrophy. No evidence of pericardial effusion. No evidence of wall motion abnormality. Right ventricular systolic pressure 33. DVT and GI prophylaxis provided. Lipid panel was stable. Blood sugar was managed with sliding scale of insulin. Hemoglobin A1c 7.9. Patient needs tighter optimization of anti-glycemic regimen as outpatient. Hyperkalemia resolved. Bowel regimen instituted. Patient was discharged home and advised to follow-up with her outpatient shuttle repairer urgently. FINAL DIAGNOSES: Acute on chronic renal failure Encephalopathy Hyperkalemia Diabetes mellitus Hypertension Anemia due to underlying iron deficiency Anemia of chronic kidney disease Anemia due to folic acid deficiency. Noncompliance Anxiety disorder Cluster B personality DISCHARGE MEDICATIONS: See Medication Reconciliation list. DISCHARGE INSTRUCTIONS: Patient was discharged home . Follow up with primary care provider in one week. Urgent follow-up with outpatient shuttle repairer Dr. Sanchez/ discussed by shuttle repairer with patient's sister I have been assigned to dictate discharge summary for this account. I was not involved in the patient's management. Thais Keen NP Jul 13, 2019 08:52
== END 2019-07-12 11:53 | disposition home or self-care (01) | DRG 425 ==
LOC: EDBD 10:25 → EMR 11:14 → 2W 12:00 → EDBEDREQ 12:02 → 2W 12:38 → 3E 07-11 13:00
DX: E87.5 Hyperkalemia (principal); N17.9 Acute kidney failure, unspecified; G93.40 Encephalopathy, unspecified; E11.9 Type 2 diabetes mellitus without complications; E46 Unspecified protein-calorie malnutrition; I12.9 Hypertensive chronic kidney disease with stage 1 through stage 4 chronic kidney disease, or unspecified chronic kidney disease; E11.22 Type 2 diabetes mellitus with diabetic chronic kidney disease; N18.9 Chronic kidney disease, unspecified; D63.1 Anemia in chronic kidney disease; D50.9 Iron deficiency anemia, unspecified; D52.9 Folate deficiency anemia, unspecified; Z91.19 Patient's noncompliance with other medical treatment and regimen; F41.9 Anxiety disorder, unspecified; F60.89 Other specific personality disorders; J44.9 Chronic obstructive pulmonary disease, unspecified
CPT/HCPCS: 36415; 71045; 76770; 80048; 80053; 80061; 81001; 82550; 82607; 82728; 82746; 82962; 83036; 83540; 83550; 83690; 83735; 83880; 84100; 84443; 84484; 84550; 85025; 85610; 85730; 86140; 89050; 93005; 93306; 94640; 94664; 96374; 96375; 99291; J1815; J2405

== ENCOUNTER 2020-04-24 19:06 | Emergency (ER) | payer MEDICAID, OTHER ==
[~2020-04-24] VITALS: Ht 165.1 cm; Wt 59.0 kg
[~2020-04-24 19:06] MED LIST changes: +ASPIR 8181 MG ORAL; +BENADRYL25 M3 PO; +LIPITOR80 MG ORAL; +NORVASC10 MG ORAL; +NORVASC2.5 MG ORAL; +NOVOLOG100 UNITS1 SUBQ; +RENVELA800 MG ORAL
--- NOTE | 2020-04-24 19:08 | Emergency Room Report ---
History of Present Illness General Chief Complaint: Chest Pain Source: Patient Present Illness HPI Patient presents with 5 days of intermittent chest pain. She is from home. She was vomiting today and missed dialysis. She denies vomiting blood. She was recently admitted to the hospital for similar symptoms. She denies any fevers or chills. She was told not to come to dialysis today because of her vomiting. She denies hematemesis or melena. She has some orthopnea at this time. No sore throat, palpitations, diarrhea, abdominal pain, joint pain, visual changes, dizziness, headache. She has some itching of her skin. She suffers from depression and anxiety. She denies suicidal ideation. The patient was last admitted here August 2019. Discharge diagnoses: Acute on chronic renal failure Encephalopathy Hyperkalemia Diabetes mellitus Hypertension Anemia due to underlying iron deficiency Anemia of chronic kidney disease Anemia due to folic acid deficiency. Noncompliance Anxiety disorder Cluster B personality Allergies: Coded Allergies: NO KNOWN ALLERGIES (Unverified Allergy, Unknown, 06/22/15) COVID-19 Screening Contact w/high risk pt: No Recent Travel to affected area: No Experienced COVID-19 symptoms?: No COVID-19 Testing performed CONTINUING EDUCATION DEAN: No Patient History Past Medical History: see triage record Past Surgical History: other - Dialysis Social History Narrative From home Reviewed Nursing Documentation: PMH: Agreed; PSxH: Agreed Nursing Documentation-PMH Past Medical History: No History, Except For Hx Hypertension: Yes Hx Pacemaker: No Hx Asthma: Yes Hx COPD: No Hx Diabetes: Yes Hx Cancer: No Hx Gastrointestinal Problems: Yes Hx Dialysis: Yes Hx Neurological Problems: Yes - arthritis Hx Cerebrovascular Accident: No Hx Seizures: No Review of Systems All Other Systems: negative except mentioned in HPI Physical Exam Vital Signs Date Time Temp Pulse Resp B/P (MAP) Pulse Ox O2 Delivery O2 Flow Rate FiO2 04/24/20 18:57 98.2 120 18 192/97 (128) 96 Room Air Sp02 EP Interpretation: reviewed, normal General Appearance: alert, non-toxic, Chronically Ill Head: normocephalic Eyes: bilateral eye normal inspection, bilateral eye PERRL, bilateral eye EOMI ENT: moist mucus membranes Neck: supple Respiratory: crackles, rales, other - Vas-Cath right chest Cardiovascular #1: regular rate, rhythm, edema - Trace bilaterally Cardiovascular #2: 2+ radial (R) Gastrointestinal: normal inspection, non tender, no mass, non-distended, abnormal bowel sounds - Decreased Genitourinary: no CVA tenderness Musculoskeletal: back normal, normal range of motion, gait/station normal Neurologic: alert, oriented x3, grossly normal Psychiatric: depressed affect Skin: warm/dry, other - Pale and sallow, some excoriations Medical Decision Making Diagnostic Impression: Primary Impression: Chest pain Qualified Codes: R07.9 - Chest pain, unspecified Additional Impressions: Pulmonary edema Qualified Codes: J81.0 - Acute pulmonary edema End stage renal disease on dialysis Elevated troponin Hypertension Qualified Codes: I15.0 - Renovascular hypertension ER Course Patient presents with chest pain with multiple risk factors. Differential includes acute myocardial infarction, unstable angina, pulmonary embolus chest wall pain amongst others. Patient evaluated EKG, chest x-ray and labs. Patient given nitroglycerin paste and also morphine. Patient placed on a gambling monitor. Multiple comorbidities in this patient necessitated that she be evaluated carefully and observed for acute coronary syndrome. EKG no injury. Biatrial enlargement. Chest x-ray with pulmonary edema. Labs with elevated troponin, mildly elevated potassium, end-stage renal disease, elevated BNP. White count slightly elevated. Minimal anemia Patient improved with treatment here but needing dialysis and serial troponins. This is felt to be due to a leak and poor renal clearance. Discussed with Dr. Heller [facility] who accepts the patient in transfer ALS. Patient blood pressure and pulse rate high. Metoprolol 5 mg given IV prior to transfer. Patient improved with treatment in the emergency department. Laboratory Tests Test 04/24/20 19:00 White Blood Count 11.0 K/UL (4.8-10.8) H Red Blood Count 3.76 M/UL (4.20-5.40) L Hemoglobin 10.9 G/DL (12.0-16.0) L Hematocrit 34.2 % (37.0-47.0) L Mean Corpuscular Volume 91 FL (80-99) Mean Corpuscular Hemoglobin 29.1 PG (27.0-31.0) Mean Corpuscular Hemoglobin Concent 32.0 G/DL (32.0-36.0) Red Cell Distribution Width 15.8 % (11.6-14.8) H Platelet Count 110 K/UL (150-450) L Mean Platelet Volume 4.9 FL (6.5-10.1) L Neutrophils (%) (Auto) 78.5 % (45.0-75.0) H Lymphocytes (%) (Auto) 10.8 % (20.0-45.0) L Monocytes (%) (Auto) 7.0 % (1.0-10.0) Eosinophils (%) (Auto) 2.7 % (0.0-3.0) Basophils (%) (Auto) 1.0 % (0.0-2.0) Prothrombin Time 11.1 SEC (9.30-11.50) Prothrombin Time INR 1.0 (0.9-1.1) Activated Partial Thromboplast Time 27 SEC (23-33) Sodium Level 138 MMOL/L (136-145) Potassium Level 5.2 MMOL/L (3.5-5.1) H Chloride Level 101 MMOL/L (98-107) Carbon Dioxide Level 20 MMOL/L (21-32) L Anion Gap 17 mmol/L (5-15) H Blood Urea Nitrogen 64 mg/dL (7-18) H Creatinine 10.4 MG/DL (0.55-1.30) H Estimated Glomerular Filtration Rate 4.7 mL/min (>60) Glucose Level 176 MG/DL (74-106) H Calcium Level 9.4 MG/DL (8.5-10.1) Total Bilirubin 0.4 MG/DL (0.2-1.0) Aspartate Amino Transferase (AST) 19 U/L (15-37) Alanine Aminotransferase (ALT) 30 U/L (12-78) Alkaline Phosphatase 74 U/L (46-116) Total Creatine Kinase 116 U/L (26-308) Troponin I 0.075 ng/mL (0.000-0.056) Pro-B-Type Natriuretic Peptide > 63079 pg/mL (0-125) H Total Protein 7.8 G/DL (6.4-8.2) Albumin 3.7 G/DL (3.4-5.0) Globulin 4.1 g/dL Albumin/Globulin Ratio 0.9 (1.0-2.7) L EKG Diagnostic Results Rate: tachycardiac Rhythm: NSR ST Segments: no acute changes - Left axis deviation left atrial enlargement nonspecific ST-T wave changes Rhythm Strip Diag. Results EP Interpretation: yes Rhythm: no PVC's, no ectopy, other - Sinus tachycardia Chest X-Ray Diagnostic Results Chest X-Ray Diagnostic Results : Chest X-Ray Ordered: Yes # of Views/Limited/Complete: 1 View Indication: Other EP Interpretation: Yes Interpretation: no effusion, no pneumothorax, other - Pulmonary edema and Vas-Cath with cardiomegaly Impression: Other Electronically Signed by: Electronically signed by Kalpesh Jo MD Last Vital Signs Date Time Temp Pulse Resp B/P (MAP) Pulse Ox O2 Delivery O2 Flow Rate FiO2 04/24/20 22:10 98.6 85 18 179/95 99 Room Air Status: improved Disposition: SHORT-TERM HOSP - [facility] Condition: Serious Kalpesh Jo MD Apr 24, 2020 19:08
[2020-04-24 19:10] VITALS: BP 186/82
--- NOTE | 2020-04-24 19:10 | NUR ---
ED Nurse Note: Pt brought into ED from home by JAIDEN RA 26 for c/o nonradiating chest that started two days ago. Pt reports recent admission to the hospital and when she was DC home two days ago, the chest pain began and has been constant since. She notes the chest pain is pressure like in nature. Pt also has nausea/vomiting. Pt is a dialysis patient and goes M/W/F, but did not go today due to feeling sick with the nausea/vomiting. Dialysis shunt noted to R arm. Per JAIDEN, pt was tachy on scene and BP is elevated. Pt connected to monitoring manager. HR tachy at 110 and BP elevated at 186/82. Safety measures met, will continue to closely monitor pt. IV line established, blood drawn and sent to lab.
--- NOTE | 2020-04-24 19:10 | NUR ---
ED Nurse Note: Pt is aaox4. Breathing is normal, unlabored and oxygen saturation is stable on room air.
[2020-04-24] MEDS ORDERED: Morphine Sulfate 2mg/ml Inj(IV/IM USE ONLY) IVP ONE (19:15)
[2020-04-24] MEDS ORDERED: Nitroglycerin 2% oint pkt TOPIC ONE (19:15)
[2020-04-24 19:45] LABS: EOSINOPHILS % (AUTO) 2.7 % (0.0-3.0); HEMATOCRIT 34.2 % (37.0-47.0); HEMOGLOBIN 10.9 G/DL (12.0-16.0); LYMPHOCYTES % (AUTO) 10.8 % (20.0-45.0); MEAN CORPUSCULAR VOLUME 91 FL (80-99); NEUTROPHILS % (AUTO) 78.5 % (45.0-75.0); PLATELET COUNT 110 K/UL (150-450); RED BLOOD COUNT 3.76 M/UL (4.20-5.40); RED CELL DISTRIBUTION WIDTH 15.8 % (11.6-14.8)
[2020-04-24 20:01] LABS: ANION GAP 17 mmol/L (5-15); BLOOD UREA NITROGEN 64 mg/dL (7-18); CALCIUM 9.4 MG/DL (8.5-10.1); CARBON DIOXIDE 20 MMOL/L (21-32); CHLORIDE 101 MMOL/L (98-107); CREATININE 10.4 MG/DL (0.55-1.30); POTASSIUM 5.2 MMOL/L (3.5-5.1); SODIUM 138 MMOL/L (136-145)
[2020-04-24 20:12] LABS: ALANINE AMINOTRANSFERASE 30 U/L (12-78); ALBUMIN 3.7 G/DL (3.4-5.0); ALBUMIN/GLOBULIN RATIO 0.9 (1.0-2.7); ALKALINE PHOSPHATASE 74 U/L (46-116); ASPARTATE AMINO TRANSFERASE 19 U/L (15-37); BILIRUBIN,TOTAL 0.4 MG/DL (0.2-1.0); CREATINE KINASE 116 U/L (26-308)
--- NOTE | 2020-04-24 20:15 | NUR ---
ED Nurse Note: Pt reports decreased chest pain after being given medication. She is speaking on phone with family at this time, in bed with no acute distress noted. Will continue to monitor.
[2020-04-24 20:20] VITALS: BP 160/82
--- NOTE | 2020-04-24 20:27 | NUR ---
ED Nurse Note: GAVE CLINICALS TO DANIEL LITHOGRAPHIC STRIPPER.
[2020-04-24 21:20] VITALS: BP 165/91
--- NOTE | 2020-04-24 21:20 | NUR ---
ED Nurse Note: Pt remains in bed with no acute distress. Pt is talking on the phone. She reports mild pain, but chest pain is not severe at this time. See vitals flow sheet. Awaiting on ambulance transport at this time. Will continue to monitor.
--- NOTE | 2020-04-24 21:55 | NUR ---
ED Nurse Note: Report given to ROSEY Marquez at [facility].
[2020-04-24] MEDS ORDERED: Metoprolol Tartrate 5mg/5ml Inj IVP STA (21:59)
[2020-04-24 22:00] VITALS: BP 184/98
--- NOTE | 2020-04-24 22:00 | NUR ---
ED Nurse Note: Pt BP elevated at 184/98. KENNEDY Jo made aware and will give pt metoprolol. KENNEDY notes pt is still stable for transfer with ALS unit.
[2020-04-24 22:10] VITALS: BP 179/95
--- NOTE | 2020-04-24 22:10 | NUR ---
ED Nurse Note: Pt is stable for transfer to [facility] at this time per ERMD. Pt is aaox4, breathing is normal and unlabored. Pt being transported by [facility] ALS unit 14 via gurney. Report given to galley cook. Senior Medical Billing Specialist and ERMD aware of pt current BP as well as receiving RN. Pt is in no acute distress at this time. Pt took all belongings. Pt IV is patent and intact.
--- NOTE | 2020-04-25 08:56 | Diagnostic Imaging Report ---
Indication: Chest pain Technique: One view of the chest Comparison: 04/19/2020 Findings: Bilateral streaky basilar and midlung parenchymal opacities appear slightly increased. There is some focal patchy consolidation in the right midlung periphery. The heart size is upper limits normal. Right jugular tunneled dialysis catheter again noted. Impression: Worsening bilateral infiltrates, likely pneumonia, since previous exam of 5 days earlier
== END 2020-04-24 22:10 | disposition short-term general hospital (02) ==
LOC: EMR 19:25
DX: R07.9 Chest pain, unspecified (principal); J81.0 Acute pulmonary edema; I15.0 Renovascular hypertension; R79.89 Other specified abnormal findings of blood chemistry; I12.0 Hypertensive chronic kidney disease with stage 5 chronic kidney disease or end stage renal disease; E11.22 Type 2 diabetes mellitus with diabetic chronic kidney disease; N18.6 End stage renal disease; Z99.2 Dependence on renal dialysis; M19.90 Unspecified osteoarthritis, unspecified site; F32.9 Major depressive disorder, single episode, unspecified; F41.9 Anxiety disorder, unspecified; R00.0 Tachycardia, unspecified
CPT/HCPCS: 36415; 71045; 80053; 82550; 83880; 84484; 85025; 85610; 85730; 93005; 96374; 96375; J2270; J2405; Z7502; 99284

== ENCOUNTER 2020-07-17 10:03 | Emergency (ER) | payer MEDICAID, OTHER ==
[~2020-07-17] VITALS: Ht 160 cm; Wt 56.7 kg
--- NOTE | 2020-07-17 10:03 | Emergency Room Report ---
History of Present Illness General Chief Complaint: Chest Pain Source: Patient, EMS Present Illness HPI 60-year-old female history of hypertension hyperlipidemia, diabetes, CKD presents with chest pain that started 2 days ago has been constant no known aggravating alleviating factors severity is moderate she states she only feels pain no shortness of breath, patient states that the paramedics told to everythi ng so I do not need to tell you that much history is limited due to patient's attitude toward the physician Patient received 324 mg of aspirin and nitro by paramedics Allergies: Coded Allergies: NO KNOWN ALLERGIES (Unverified Allergy, Unknown, 06/22/15) COVID-19 Screening Contact w/high risk pt: No Experienced COVID-19 symptoms?: No COVID-19 Testing performed WELLNESS ASSISTANT: No Patient History Limited by: medical condition - Patient told physician to get out of here Past Medical History: see triage record Last Menstrual Period: na Now: No Reviewed Nursing Documentation: PMH: Agreed; PSxH: Agreed Nursing Documentation-PMH Past Medical History: No History, Except For Hx Cardiac Problems: Yes - osteoarthritis Hx Hypertension: Yes Hx Asthma: Yes Hx Diabetes: Yes Hx Dialysis: Yes - ESRD, m/w/f , Review of Systems All Other Systems: limited - Patient told physician to get out of here Physical Exam Vital Signs Date Time Temp Pulse Resp B/P (MAP) Pulse Ox O2 Delivery O2 Flow Rate FiO2 07/17/20 09:49 97.5 100 16 199/94 (129) 99 Room Air Sp02 EP Interpretation: reviewed, normal General Appearance: well appearing, no apparent distress, alert Head: normocephalic, atraumatic Eyes: bilateral eye PERRL, bilateral eye EOMI ENT: uvula midline, moist mucus membranes Neck: supple, thyroid normal, supple/symm/no masses Respiratory: lungs clear, no respiratory distress, no retraction, no accessory muscle use Cardiovascular #1: normal peripheral pulses, regular rate, rhythm, no edema, no gallop, no murmur Gastrointestinal: non tender, soft, no guarding, no rebound Musculoskeletal: normal inspection Neurologic: alert, oriented x3 Psychiatric: mood/affect normal Skin: no rash, warm/dry Medical Decision Making Diagnostic Impression: Primary Impression: Chest pain ER Course 60-year-old female presents with chest pain x2 days constant, differential diagnosis includes ACS, pneumonia, pneumothorax Patient refuses to answer specific questions patient tells physician to get out of the room, Work-up will include lab work, EKG, chest x-ray Reevaluation 10:17 AM patient is refusing blood work patient accepted an EKG patient is now refusing x-ray Patient states she did not want this nurse drawing her lab work she wants a different nurse cannot specify the reason why she did not want said nurse to not draw her labs Reevaluation 10:19 AM, patient said " get the hell out of my face" " I am going to get the hell up out of here" patient counseled there is a risk of disability and worsening of her medical condition Patient replied" I do not care" The patient has requested to leave the ED against medical advice. The patient reason(s) for leaving include, but are not limited to, the following: "would not give a reason." I believe this patient is of sound mind and competent to refuse medical care. The patient is responding and asking questions appropriately. The patient is oriented to person, place and time. The patient is not psychotic, delusional, suicidal, homicidal or hallucinating. The patient demonstrates a normal mental capacity to make decisions regarding their healthcare. The patient is clinically sober and does not appear to be under the influence of any illicit drugs at this time. The patient has been advised of the risks, in layman terms, of leaving AMA which include, but are not limited to , coma, permanent disability, loss of current lifestyle, delay in diagnosis. Alternatives have been offered - the patient remains steadfast in their wish to leave. The patient has been advised that should they change their mind they are welcome to return to this hospital, or any other, at any time. The patient understands that in no way does an AMA discharge mean that I do not want them to have the best medical care available. To this end, I have provided appropriate prescriptions, referrals, and discharge instructions. The patient did not sign AMA paperwork. The above discussion was witnessed by another member of staff. EKG Diagnostic Results EKG Time: 09:48 EP Interpretation: NSR, rate 93, QTc 465, no acute escalations, normal axis Rhythm Strip Diag. Results Rhythm Strip Time: 10:03 EP Interpretation: yes Rate: 94 Rhythm: NSR, no PVC's, no ectopy Last Vital Signs Date Time Temp Pulse Resp B/P (MAP) Pulse Ox O2 Delivery O2 Flow Rate FiO2 07/17/20 09:49 97.5 100 16 199/94 (129) 99 Room Air Disposition: AGAINST MEDICAL ADVICE Condition: Stable Referrals: [facility] Patient Instructions: Nonspecific Chest Pain Additional Instructions: The patient was provided with discharge instructions, notified to follow-up with a primary care doctor and or specialist in the next 24-48 hours, and to return to the ED if they have worsening of their symptoms. Please note that this report is being documented using [employer] technology. This can lead to erroneous entry secondary to incorrect interpretation by the dictating instrument. Dylan Suárez MD Jul 17, 2020 10:03
[2020-07-17 10:13] VITALS: BP 196/132
--- NOTE | 2020-07-18 13:46 | Cardiology Report ---
APPROVED REPORT EKG Measurement Heart [id number] <Conclusion> Normal sinus rhythm Normal ECG
== END 2020-07-17 11:10 | disposition left against medical advice (07) ==
LOC: EDBD 10:03 → EMR 10:15
DX: R07.9 Chest pain, unspecified (principal); I13.11 Hypertensive heart and chronic kidney disease without heart failure, with stage 5 chronic kidney disease, or end stage renal disease; E11.22 Type 2 diabetes mellitus with diabetic chronic kidney disease; N18.6 End stage renal disease; Z99.2 Dependence on renal dialysis; E78.5 Hyperlipidemia, unspecified
CPT/HCPCS: 93005; Z7502; 99283

== ENCOUNTER 2020-08-11 22:56 | Inpatient (IN) | payer OTHER ==
[~2020-08-11] VITALS: Ht 167.6 cm; Wt 46.9 kg
[2020-08-11 23:00] VITALS: BP 190/72
--- NOTE | 2020-08-11 23:44 | Emergency Room Report ---
History of Present Illness General Chief Complaint: Nausea Source: Patient Present Illness HPI Patient is a 60-year-old female past medical history of hypertension, asthma, diabetes, end-stage renal disease on dialysis Friday who was brought in from her home by EMS for nausea and vomiting since Friday. Patient very uncooperative and abrasive towards myself and the ER staff upon questioning. Refusing to answer most questions. Some history taken from EMS. Patient states that she saw her doctor on Friday and that he could not tell her what was wrong with her. Patient refusing to tell me if she had abdominal pain but told EMS that she had abdominal pain. Patient denies having fever, chills, chest pain or shortness of breath. Patient states that she does not want to talk to me does not want me to examine her. She states she wants to go to another hospital. Allergies: Coded Allergies: NO KNOWN ALLERGIES (Unverified Allergy, Unknown, 06/22/15) COVID-19 Screening Contact w/high risk pt: No Recent Travel to affected area: No Experienced COVID-19 symptoms?: Yes COVID-19 Testing performed PIPED BUTTONHOLE MACHINE OPERATOR: No Patient History Reviewed Nursing Documentation: PMH: Agreed; PSxH: Agreed Nursing Documentation-PMH Past Medical History: No History, Except For Hx Cardiac Problems: Yes - anemia Hx Hypertension: Yes Hx Pacemaker: No Hx Asthma: Yes Hx COPD: No Hx Diabetes: Yes - DIALYSIS MWF R ARM SHUNT Hx Cancer: No Hx Gastrointestinal Problems: Yes Hx Dialysis: Yes - MWF Hx Neurological Problems: Yes - arthritis Hx Cerebrovascular Accident: No Hx Seizures: No Review of Systems All Other Systems: negative except mentioned in HPI Physical Exam Vital Signs Date Time Temp Pulse Resp B/P (MAP) Pulse Ox O2 Delivery O2 Flow Rate FiO2 08/11/20 22:48 99.5 108 22 190/72 (111) 95 Room Air Sp02 EP Interpretation: reviewed, normal General Appearance: no apparent distress, alert, GCS 15, non-toxic Head: normocephalic, atraumatic Eyes: bilateral eye normal inspection, bilateral eye PERRL ENT: hearing grossly normal, normal pharynx, no angioedema, normal voice Neck: full range of motion, supple/symm/no masses Respiratory: no respiratory distress, no accessory muscle use, other - refusing to allow me to listen to her lungs Cardiovascular #1: other - refusing Gastrointestinal: soft, other - diffuse abdominal pain no guarding or rebound Rectal: deferred Neurologic: crepe sole scourer III-XII nml as tested, oriented x3 Psychiatric: other - aggitaed Skin: no rash Lymphatic: no adenopathy Procedures Critical Care Time Critical Care Time Total critical care time: Approximately 35 minutes. Due to a high probability of clinically significant, life threatening deterioration, the patient required my highest level of preparedness to intervene emergently and I personally spent this critical care time directly and personally managing the patient. This cri tical care time included obtaining a history; examining the patient; pulse oximetry; ordering and review of studies; arranging urgent treatment with development of a management plan; evaluation of patient's response to treatment; frequent reassessment; and, discussions with other providers.This critical care time was performed to assess and manage the high probability of imminent, life- threatening deterioration that could result in multi-organ failure. It was exclusive of separately billable procedures and treating other patients and teaching time. Please see MDM section and the rest of the note for further information on patient assessment and treatment. Medical Decision Making Diagnostic Impression: Primary Impression: Renal failure (ARF), acute on chronic Additional Impressions: Hyperkalemia End stage renal disease on dialysis Elevated troponin Anemia Cardiomegaly Pulmonary edema Fecal impaction ER Course Patient with ho ESRD on dialysis. Patient states that she missed her dialysis today due to persistent nausea and vomiting. Patient mildly hyperkalemic with potassium 5.2 with no EKG changes. Patient has mild pulmonary edema. Patient will require dialysis emergently in the morning. Patient CT demonstrates mild fecal impaction. I have ordered for magnesium citrate. Patient has elevated troponin of 0.1. Prior troponin is 0.075. Likely secondary to renal insufficiency but will need to be trended. No ST elevation on EKG. Patient will be admitted for further treatment and evaluation. Laboratory Tests Test 08/11/20 23:40 White Blood Count 7.8 K/UL (4.8-10.8) Red Blood Count 2.87 M/UL (4.20-5.40) L Hemoglobin 8.3 G/DL (12.0-16.0) L Hematocrit 26.7 % (37.0-47.0) L Mean Corpuscular Volume 93 FL (80-99) Mean Corpuscular Hemoglobin 28.9 PG (27.0-31.0) Mean Corpuscular Hemoglobin Concent 31.1 G/DL (32.0-36.0) L Red Cell Distribution Width 17.8 % (11.6-14.8) H Platelet Count 120 K/UL (150-450) L Mean Platelet Volume 5.8 FL (6.5-10.1) L Neutrophils (%) (Auto) 74.9 % (45.0-75.0) Lymphocytes (%) (Auto) 13.6 % (20.0-45.0) L Monocytes (%) (Auto) 7.1 % (1.0-10.0) Eosinophils (%) (Auto) 3.5 % (0.0-3.0) H Basophils (%) (Auto) 0.8 % (0.0-2.0) Prothrombin Time 12.0 SEC (9.30-11.50) H Prothrombin Time INR 1.1 (0.9-1.1) Activated Partial Thromboplast Time 25 SEC (23-33) Sodium Level 136 MMOL/L (136-145) Potassium Level 5.2 MMOL/L (3.5-5.1) H Chloride Level 98 MMOL/L (98-107) Carbon Dioxide Level 26 MMOL/L (21-32) Anion Gap 12 mmol/L (5-15) Blood Urea Nitrogen 39 mg/dL (7-18) H Creatinine 9.7 MG/DL (0.55-1.30) H Estimated Glomerular Filtration Rate 5.1 mL/min (>60) Glucose Level 101 MG/DL (74-106) Calcium Level 9.6 MG/DL (8.5-10.1) Magnesium Level 2.6 MG/DL (1.8-2.4) H Total Bilirubin 0.8 MG/DL (0.2-1.0) Aspartate Amino Transferase (AST) 41 U/L (15-37) H Alanine Aminotransferase (ALT) 32 U/L (12-78) Alkaline Phosphatase 63 U/L (46-116) Troponin I 0.109 ng/mL (0.000-0.056) Total Protein 6.9 G/DL (6.4-8.2) Albumin 3.6 G/DL (3.4-5.0) Globulin 3.3 g/dL Albumin/Globulin Ratio 1.1 (1.0-2.7) Lipase 41 U/L (73-393) L Microbiology Date/Time Source Procedure Growth Status 08/12/20 01:00 Nasopharynx SARS-CoV-2 RdRp Gene Assay - Final Complete EKG Diagnostic Results Troponin ordered: Yes When was troponin ordered?: Aug 11, 2020 EKG Time: 23:07 EP Interpretation: Lorie Johnson MD Rate: tachycardiac - 109 bpm Rhythm: other - Sinus tachycardia ST Segments: no acute changes ASA given to the pt in ED: No Rhythm Strip Diag. Results Rhythm Strip Time: 00:00 EP Interpretation: yes - Lorie Johnson MD Rate: 107 bpm Rhythm: no PVC's, no ectopy, other - sinus tachycardia Chest X-Ray Diagnostic Results Chest X-Ray Diagnostic Results : Chest X-Ray Ordered: Yes # of Views/Limited/Complete: 1 View Indication: Other - abdominal pain EP Interpretation: Yes Interpretation: other - cardiomegaly, mild pulmonary edema, no pneumothorax Impression: Other - CHF and cardiolmegaly Electronically Signed by: Lorie Johnson MD Last Vital Signs Date Time Temp Pulse Resp B/P (MAP) Pulse Ox O2 Delivery O2 Flow Rate FiO2 08/11/20 23:00 99.5 73 22 190/72 95 Room Air Disposition: ADMITTED INPATIENT - Telemetry Condition: Critical Physician Consult: Dr. Carlson distance education teacher for Dr. Gonzalez Referrals: NOT CHOSEN IPA/,REFERRING (PCP) Additional Instructions: Please note that this report is being documented using [employer] technology. This can lead to erroneous entry secondary to incorrect interpretation by the dictating instrument. Lorie Johnson M.D. Aug 11, 2020 23:44
[2020-08-12] VITALS (7 sets, daily range): BP systolic 138–184; BP diastolic 66–83
[2020-08-12 00:03] LABS: BASOPHILS % (AUTO) 0.8 % (0.0-2.0); EOSINOPHILS % (AUTO) 3.5 % (0.0-3.0); HEMATOCRIT 26.7 % (37.0-47.0); HEMOGLOBIN 8.3 G/DL (12.0-16.0); LYMPHOCYTES % (AUTO) 13.6 % (20.0-45.0); MEAN CORPUSCULAR VOLUME 93 FL (80-99); MONOCYTES % (AUTO) 7.1 % (1.0-10.0); NEUTROPHILS % (AUTO) 74.9 % (45.0-75.0); PLATELET COUNT 120 K/UL (150-450); RED BLOOD COUNT 2.87 M/UL (4.20-5.40); RED CELL DISTRIBUTION WIDTH 17.8 % (11.6-14.8); WHITE BLOOD COUNT 7.8 K/UL (4.8-10.8)
[2020-08-12 00:07] LABS: INR 1.1 (0.9-1.1)
[2020-08-12 00:10] LABS: CALCIUM 9.6 MG/DL (8.5-10.1); CREATININE 9.7 MG/DL (0.55-1.30); POTASSIUM 5.2 MMOL/L (3.5-5.1)
[2020-08-12 00:16] LABS: ALBUMIN 3.6 G/DL (3.4-5.0); ALBUMIN/GLOBULIN RATIO 1.1 (1.0-2.7); BILIRUBIN,TOTAL 0.8 MG/DL (0.2-1.0)
[2020-08-12] MEDS ORDERED: fentaNYL 100 mcg/2 mL IV ONE (01:15)
--- NOTE | 2020-08-12 01:35 | Diagnostic Imaging Report ---
EXAM: CT Abdomen and Pelvis Without Intravenous Contrast CLINICAL HISTORY: ABD PAIN TECHNIQUE: Axial computed tomography images of the abdomen and pelvis without intravenous contrast. CTDI is 3.20 mGy and DLP is 152.10 mGy-cm. One or more of the following dose reduction techniques were used: automated exposure control, adjustment of the mA and/or kV according to patient size, use of iterative reconstruction technique. COMPARISON: 10/23/2018 FINDINGS: Lung bases: Cardiomegaly. Mild intralobular septal thickening at the lung bases. ABDOMEN: Liver: Unremarkable. Gallbladder and bile ducts: Unremarkable. Pancreas: No ductal dilation. Spleen: Unremarkable. Adrenals: Unremarkable. Kidneys and ureters: No obstructing stones. No hydronephrosis. Atrophic bilaterally. Stomach and bowel: No bowel obstruction. No bowel wall thickening. Mild hiatal hernia and mildly thickened esophageal wall. Copious amounts of stool throughout the colon. Mild stool impaction of the rectum. PELVIS: Appendix: No evidence of appendicitis. Bladder: No stones. Reproductive: Unremarkable. ABDOMEN and PELVIS: Intraperitoneal space: Mild ascites. Bones/joints: No acute fractures. Soft tissues: Diffuse soft tissue stranding. Vasculature: No abdominal aortic aneurysm. Decreased density of the blood pool. Lymph nodes: No enlarged lymph nodes. IMPRESSION: 1. Evidence of renal failure as demonstrated by atrophic kidneys. 2. Cardiomegaly. Mild pulmonary edema, mild ascites, and anasarca. 3. Copious amounts of stool throughout the colon with mild stool impaction of the rectum. 4. Decreased density of the blood pool. Suggested of anemia. 5. Mild hiatal hernia with mildly thickened esophageal wall. Cannot exclude esophagitis, but this was seen on the prior study as well.
[2020-08-12] MEDS ORDERED: DiphenhydrAMINE 50mg/ml Inj IVP ONE (01:45)
[2020-08-12] MEDS ORDERED: Magnesium Citrate Liq Btl ORAL ONE (01:45)
--- NOTE | 2020-08-12 02:47 | Diagnostic Imaging Report ---
EXAM: XR Chest, 1 View CLINICAL HISTORY: PAIN TECHNIQUE: Frontal view of the chest. COMPARISON: 04/24/2020 FINDINGS: Lungs: Slightly increased interstitial opacities. Pleural space: No acute findings Heart: cardiomegaly. Bones/joints: No acute findings. IMPRESSION: Cardiomegaly. Mild pulmonary edema.
[2020-08-12] MEDS ORDERED: Miralax 17gm pkt ORAL PRN ×2 (04:30→10:30)
[2020-08-12] MEDS ORDERED: Fleet's Mineral Oil Enema RECTAL PRN (04:30)
[2020-08-12] MEDS: Docusate Sod/Senna tab ORAL SCH ×2 (08:42→17:18)
[2020-08-12] MEDS ORDERED: Albuterol/Ipratropium 3ml neb HHN PRN (10:30)
[2020-08-12] MEDS ORDERED: Milk of Magnesia 30ml Ud ORAL PRN (10:30)
[2020-08-12] MEDS ORDERED: Metoclopramide 10mg/2ml Inj IVP PRN (10:30)
--- NOTE | 2020-08-12 10:40 | History and Physical ---
History of Present Illness General Reason for Hospitalization: Nausea Present Illness HPI Mrs. Solis is a 60F with PMH of ESRD on HD, HTN, asthma, DM, and anemia who presents for nausea and vomiting. Patient reports since friday unable to keep much food down. Denies any fevers, chills, sob, chest pain, abdominal pain, constipation, or diarrhea. She has similar episodes in the past that usually resolve on its own. She missed her dialysis due to this as she was told by her dialysis center to go to the hospital for evaluation. No new medications. No recent illness, sick contacts or tavels. Rest of 10 point ROS otherwise negative. PMH: ESRD on HD MWF, HTN, ASthma, DM, anemia Sx: none Fx: mother had asthma, DM Soc: 1ppd smoker, denies drinking, former recreational drug user Allergies: Coded Allergies: NO KNOWN ALLERGIES (Unverified Allergy, Unknown, 06/22/15) COVID-19 Screening Contact w/high risk pt: No Recent Travel to affected area: No Experienced COVID-19 symptoms?: No Coronavirus symptoms experienc: Nausea/Vomiting Medication History Scheduled Amlodipine Besylate (Norvasc), Unknown Dose ORAL DAILY, (Reported) Amlodipine Besylate (Norvasc), 10 MG ORAL DAILY Aspirin* (Aspir 81*), 81 MG ORAL DAILY, (Reported) Atorvastatin (Lipitor), 80 MG ORAL BEDTIME, (Reported) Insulin Aspart (Novolog Flexpen), 0 UNITS SUBQ BEFORE MEALS AND HS Sevelamer Carbonate (Renvela), 1,600 MG ORAL THREE TIMES A DAY Miscellaneous Medications Diphenhydramine HCl (Benadryl), 25 MG PO, (Reported) Unable to Obtain Medications (Unable To Obtain Meds), (Reported) Patient History Healthcare decision maker Resuscitation status Advanced Directive on File Review of Systems Constitutional: Denies: no symptoms, see HPI, chills, sweats, fever, malaise, weakness, other Eye: Denies: no symptoms, see HPI, eye pain, blurred vision, tearing, double vision, nose pain, nose congestion, acuity changes, discharge, other ENT: Denies: no symptoms, see HPI, ear pain, ear discharge, nose pain, nose congestion, throat pain, throat swelling, mouth pain, hearing loss, nasal disc harge, other Respiratory: Denies: no symptoms, see HPI, cough, orthopnea, shortness of breath, stridor, wheezing, MICHELLE, sputum, other Cardiovascular: Denies: no symptoms, see HPI, chest pain, edema, palpitations, syncope, PND, other Gastrointestinal: Reports: nausea, vomiting; Denies: no symptoms, see HPI, abdominal pain, constipation, diarrhea, melena, hematemesis, other Genitourinary: Denies: no symptoms, see HPI, discharge, dysuria, frequency, hematuria, pain, retention, incontinence, urgency, vag bleed/dc, other Musculoskeletal: Denies: no symptoms, see HPI, back pain, gout, joint pain, joint swelling, muscle pain, muscle stiffness, other Skin: Denies: no symptoms, see HPI, rash, change in color, change in lonny r/nails, dryness, lesions, other Psychiatric: Denies: no symptoms, see HPI, prior hx, anxiety, depressed f eelings, emotional problems, SI, HI, hallucinations, other Neurological: Denies: no symptoms, see HPI, headache, numbness, paresthesia, seizure, tingling, tremors, focal weakness, syncope, dizziness, other Endocrine: Denies: no symptoms, see HPI, excessive sweating, flushing, intolerance to temperature, increased thirst, increased urine, unexplained weight loss, other Hematologic/Lymphatic: Denies: no symptoms, see HPI, anemia, blood clots, easy bleeding, easy bruising, swollen glands, diathesis, other Physical Exam General Appearance: no apparent distress, alert oriented x3 HEENT: normocephalic, EOMI Neck: non-tender, normal inspection Respiratory/Chest: lungs clear, normal breath sounds, no respiratory distress Cardiovascular/Chest: normal rate, regular rhythm, regularly irregular Abdomen: normal bowel sounds, non tender, soft Extremities: normal range of motion, other - right AV fistula Skin Exam: normal pigmentation, warm/dry Neurologic: regulatory affairs associate II-XII grossly normal, oriented x 3 Last 24 Hour Vital Signs Date Time Temp Pulse Resp B/P (MAP) Pulse Ox O2 Delivery O2 Flow Rate FiO2 08/12/20 09:00 Nasal Cannula 2.0 08/12/20 08:00 98.1 86 20 138/66 (90) 85 08/12/20 08:00 90 08/12/20 04:00 98.9 08/12/20 03:38 99.6 108 20 160/76 (104) 100 08/12/20 03:32 108 08/12/20 03:22 Room Air 08/12/20 03:22 Room Air 08/12/20 03:15 105 08/12/20 03:05 99.5 72 21 172/69 99 Room Air 08/12/20 02:30 99.5 72 21 172/69 99 Room Air 08/12/20 01:46 99.5 08/12/20 00:00 99.5 73 22 184/73 96 Room Air 08/11/20 23:00 99.5 73 22 190/72 95 Room Air 08/11/20 22:48 99.5 108 22 190/72 (111) 95 Room Air Laboratory Tests Test 08/11/20 23:40 08/12/20 06:20 White Blood Count 7.8 K/UL (4.8-10.8) Red Blood Count 2.87 M/UL (4.20-5.40) L Hemoglobin 8.3 G/DL (12.0-16.0) L Hematocrit 26.7 % (37.0-47.0) L Mean Corpuscular Volume 93 FL (80-99) Mean Corpuscular Hemoglobin 28.9 PG (27.0-31.0) Mean Corpuscular Hemoglobin Concent 31.1 G/DL (32.0-36.0) L Red Cell Distribution Width 17.8 % (11.6-14.8) H Platelet Count 120 K/UL (150-450) L Mean Platelet Volume 5.8 FL (6.5-10.1) L Neutrophils (%) (Auto) 74.9 % (45.0-75.0) Lymphocytes (%) (Auto) 13.6 % (20.0-45.0) L Monocytes (%) (Auto) 7.1 % (1.0-10.0) Eosinophils (%) (Auto) 3.5 % (0.0-3.0) H Basophils (%) (Auto) 0.8 % (0.0-2.0) Prothrombin Time 12.0 SEC (9.30-11.50) H Prothromb Time International Ratio 1.1 (0.9-1.1) Activated Partial Thromboplast Time 25 SEC (23-33) Sodium Level 136 MMOL/L (136-145) Potassium Level 5.2 MMOL/L (3.5-5.1) H Chloride Level 98 MMOL/L (98-107) Carbon Dioxide Level 26 MMOL/L (21-32) Anion Gap 12 mmol/L (5-15) Blood Urea Nitrogen 39 mg/dL (7-18) H Creatinine 9.7 MG/DL (0.55-1.30) H Estimat Glomerular Filtration Rate 5.1 mL/min (>60) Glucose Level 101 MG/DL (74-106) Calcium Level 9.6 MG/DL (8.5-10.1) Magnesium Level 2.6 MG/DL (1.8-2.4) H Total Bilirubin 0.8 MG/DL (0.2-1.0) Aspartate Amino Transf (AST/SGOT) 41 U/L (15-37) H Alanine Aminotransferase (ALT/SGPT) 32 U/L (12-78) Alkaline Phosphatase 63 U/L (46-116) Troponin I 0.109 ng/mL (0.000-0.056) 0.138 ng/mL (0.000-0.056) Total Protein 6.9 G/DL (6.4-8.2) Albumin 3.6 G/DL (3.4-5.0) Globulin 3.3 g/dL Albumin/Globulin Ratio 1.1 (1.0-2.7) Lipase 41 U/L (73-393) L Microbiology Date/Time Source Procedure Growth Status 08/12/20 01:00 Nasopharynx SARS-CoV-2 RdRp Gene Assay - Final Complete Height (Feet): 5 Height (Inches): 6.00 Weight (Pounds): 120 Medications Current Medications Medications (Trade) Dose Ordered Sig/Tamra Route PRN Reason Start Time Stop Time Status Last Admin Dose Admin Acetaminophen (Tylenol) 650 mg Q4H PRN ORAL Mild Pain (Pain Scale 1-3) 08/12/20 10:30 09/11/20 10:29 UNV Acetaminophen (Tylenol) 650 mg Q8H PRN ORAL For Pain 08/12/20 04:30 09/11/20 04:29 Albuterol/ Ipratropium (Albuterol/ Ipratropium) 3 ml Q4HR PRN HHN Shortness of Breath 08/12/20 10:30 08/17/20 10:29 UNV Amlodipine Besylate (Norvasc) 10 mg DAILY ORAL 08/12/20 09:00 09/11/20 08:59 Dextrose (Dextrose 50%) 25 ml Q30M PRN IV Hypoglycemia 08/12/20 10:30 11/10/20 10:29 UNV Dextrose (Dextrose 50%) 50 ml Q30M PRN IV Hypoglycemia 08/12/20 10:30 11/10/20 10:29 UNV Heparin Sodium (Porcine) (Heparin 5000 units/ml) 5,000 units EVERY 12 HOURS SUBQ 08/12/20 10:30 09/26/20 10:29 UNV Magnesium Hydroxide (Mom) 30 ml HSPRN PRN ORAL Constipation 08/12/20 10:30 09/11/20 10:29 UNV Metoclopramide HCl (Reglan) 10 mg Q6H PRN IVP Nausea & Vomiting 08/12/20 10:30 09/11/20 10:29 UNV Ondansetron HCl (Zofran) 4 mg Q6H PRN IVP Nausea & Vomiting 08/12/20 04:30 09/11/20 04:29 Polyethylene Glycol (Miralax) 17 gm DAILY PRN ORAL Constipation 08/12/20 04:30 09/11/20 04:29 Polyethylene Glycol (Miralax) 17 gm HSPRN PRN ORAL Constipation 08/12/20 10:30 09/11/20 10:29 UNV Senna/Docusate Sodium (Joie-Colace) 1 tab TWICE A DAY ORAL 08/12/20 09:00 09/11/20 08:59 Assessment/Plan Assessment/Plan: Mrs. Solis is a 60F with PMH of ESRD on HD, HTN, asthma, DM, and anemia who presents for nausea and vomiting. A: # Nausea/Vomiting w/ poor oral intake # Acute Hypoxic Respiratory Failure s/p NC # Pulmonary Edema # ESRD s/p HD MWF # Tropinemia likley 2/2 ESRD # Essential HTN # Asthma # Type 2 DM # Anemia of CKD, L[place]NNETTE # Thrombocytopenia P: - hemodynmically stable - sat well on 2L NC, keep O2 > 92% - nausea and vomiting improved this morning, able to tolerate breakfast - troponin slightly elevated likely from ESRD, denies any sob or chest pain - EKG: nsr without acute ST changes; noted to have septal infarct which was previously there several months ago on ekg - CXR: cardiomegaly and mild pulmonary edema - f/u ECHO - f/u BNP - Dialysis per nephro - f/u iron studies - monitor platelets - hold heparin platelets < 50 - continue home amlodipine 10 mg daily - hydralazine prn SBP > 170 - f/u A1c - mild ISS; dialy reassessment of insulin requirements - consult nephrology for dialysis - consult Dr. Oliveira cardiology recs appreciated Code: Full GI: none DVT: Heparin 5000U BID Diet: renal Dispo: pending patient ability to tolerate food, ECHO eval In addition to the usual care above I spent additional time reviewing records in the EMR and paper charts including physician documentation, nursing documentation, lab results, imaging and clinical documentation. Total time included was 35 min. Advanced care planning 17 minutes was spent which included discussion of both acute and chronic medical illnesses, code status, goals of care and advanced directives and POLST. Time spent on this encounter was 45 minutes which included 25 minutes of counseling and care coordination. I discussed with the nurse at bedside. Time of note may not reflect time patient was seen. Demond Doyle D.O Aug 12, 2020 10:40
[2020-08-12] MEDS: Heparin 5000 units/ml inj SUBQ SCH ×2 (10:45→21:00)
[2020-08-12] MEDS: Aspirin EC 81mg tab ORAL SCH (11:00)
[2020-08-12] MEDS: NovoLOG Insulin Flexpen SUBQ SCH ×3 (11:30→21:00)
--- NOTE | 2020-08-12 12:20 | Consultation ---
Consult Note Consult Note I have asked to evaluate the patient for dialysis management Patient angry uncooperative requests to see her own new vehicle sales consultant. When explained that her new vehicle sales consultant does not come to this hospital she asked for another kidney doctor to see her. I talked to the patient's nurse, nursing charge of the floor, and left message for Dr. Demond Doyle to get another new vehicle sales consultant involved. Yovany Lozano MD Aug 12, 2020 12:20
--- NOTE | 2020-08-12 13:04 | General Progress Note ---
Advance Care Planning Advance Care Planning Advance Care Planning [facility] An independent Hospitalist group, where every patient is our [facility] Internal Medicine Hospitalist Advanced Care Planning Note Please contact us at Date of Discussion: A [id number] discussion with the patient regarding the patient's advanced care planning took place during this hospitalization on the above date. The discussion included the explanation and discussion of advance directives and associated forms/documents, as well as the patient's current code status. We also discussed at length the patient's medical conditions (both acute and chroni c), general prognosis, treatment options, and goals of care. The following summarizes the discussion: Advance Care Planning/Goals of Care: - Will attempt to fill out an AD and/or POLST with the patient prior to discharge, if not already completed - Continue current evaluation and management of any acute and chronic medical issues - Will continue to support the patient/family - Will continue to discuss both short- and long-term goals of care DPOA-HC/Surrogate Decision Maker: None currently appointed Code Status: Full Code Advanced Care Planning Forms/Documents Completed: Deferred until later encounter/visit A total of 17 minutes was spent on this discussion, including counseling, answering questions, and completing, if any, pertinent advanced care planning forms/documents. Time of note may not reflect time of encounter. Demond Doyle D.O Aug 12, 2020 13:04
[2020-08-12] MEDS ORDERED: Atorvastatin 80mg tab ORAL SCH (21:00)
[2020-08-12] MEDS: HydrALAZINE 25mg tab ORAL PRN (22:33)
[2020-08-13] VITALS: BP 161/71
[2020-08-13 04:00] VITALS: BP 174/72
[2020-08-13 05:53] VITALS: BP 174/72
[2020-08-13] MEDS: HydrALAZINE 25mg tab ORAL PRN (05:53)
[2020-08-13] MEDS: NovoLOG Insulin Flexpen SUBQ SCH ×2 (06:30→11:30)
[2020-08-13 07:50] LABS: HEMATOCRIT 23.6 % (37.0-47.0); HEMOGLOBIN 7.2 G/DL (12.0-16.0); MEAN CORPUSCULAR VOLUME 95 FL (80-99); PLATELET COUNT 100 K/UL (150-450); RED CELL DISTRIBUTION WIDTH 16.8 % (11.6-14.8); WHITE BLOOD COUNT 4.5 K/UL (4.8-10.8)
[2020-08-13 08:10] LABS: ANION GAP 7 mmol/L (5-15); BLOOD UREA NITROGEN 20 mg/dL (7-18); CALCIUM 8.7 MG/DL (8.5-10.1); CARBON DIOXIDE 28 MMOL/L (21-32); CHLORIDE 105 MMOL/L (98-107); CREATININE 5.9 MG/DL (0.55-1.30); PHOSPHORUS 3.7 MG/DL (2.5-4.9); POTASSIUM 4.6 MMOL/L (3.5-5.1); SODIUM 140 MMOL/L (136-145)
[2020-08-13 08:15] LABS: % IRON SATURATION 23 % (15-50); IRON 28 ug/dL (50-175); TOTAL IRON BINDING CAPACITY 120 ug/dL (250-450)
[2020-08-13] MEDS: Heparin 5000 units/ml inj SUBQ SCH ×2 (08:39→10:45)
[2020-08-13] MEDS: Docusate Sod/Senna tab ORAL SCH (08:39)
--- NOTE | 2020-08-13 08:45 | Consultation ---
History of Present Illness General Chief Complaint: Nausea Reason for Consultation: ESRD on HD Present Illness HPI 60F with PMH of ESRD on HD- MWF, HTN, asthma, DM, and anemia who presents for nausea and vomiting. Patient reports since friday unable to keep much food down. Denies any fevers, chills, sob, chest pain, abdominal pain, constipation, or diarrhea. She has similar episodes in the past that usually resolve on its own. She missed her dialysis due to this as she was told by her dialysis center to go to the hospital for evaluation. No new medications. No recent illness, sick contacts or tavels Allergies: Coded Allergies: NO KNOWN ALLERGIES (Unverified Allergy, Unknown, 06/22/15) Medication History Scheduled Amlodipine Besylate (Norvasc), Unknown Dose ORAL DAILY, (Reported) Amlodipine Besylate (Norvasc), 10 MG ORAL DAILY Aspirin* (Aspir 81*), 81 MG ORAL DAILY, (Reported) Atorvastatin (Lipitor), 80 MG ORAL BEDTIME, (Reported) Insulin Aspart (Novolog Flexpen), 0 UNITS SUBQ BEFORE MEALS AND HS Sevelamer Carbonate (Renvela), 1,600 MG ORAL THREE TIMES A DAY Miscellaneous Medications Diphenhydramine HCl (Benadryl), 25 MG PO, (Reported) Unable to Obtain Medications (Unable To Obtain Meds), (Reported) Patient History Healthcare decision maker Resuscitation status Advanced Directive on File Review of Systems All Other Systems: negative except mentioned in HPI Physical Exam General Appearance: alert, lethargic Lines, tubes and drains: peripheral HEENT: normocephalic, atraumatic Neck: non-tender, normal alignment Respiratory/Chest: lungs clear, normal breath sounds Cardiovascular/Chest: normal rate, regular rhythm Abdomen: non tender, soft Extremities: non-tender, normal inspection Neurologic: alert, oriented x 3 Last 24 Hour Vital Signs Date Time Temp Pulse Resp B/P (MAP) Pulse Ox O2 Delivery O2 Flow Rate FiO2 08/13/20 08:14 Room Air 08/13/20 08:00 86 08/13/20 05:53 174/72 08/13/20 04:00 97.7 83 18 174/72 (106) 95 08/13/20 04:00 91 08/13/20 00:00 97.2 97 20 161/71 (101) 95 08/13/20 00:00 89 08/12/20 22:33 195/90 08/12/20 21:00 Room Air 08/12/20 20:00 97.7 89 20 173/83 (113) 92 08/12/20 20:00 88 08/12/20 16:00 83 08/12/20 16:00 97.9 82 20 166/78 (107) 88 08/12/20 12:00 98.0 85 22 163/80 (107) 88 08/12/20 12:00 82 08/12/20 09:00 Nasal Cannula 2.0 Intake and Output 08/12/20 08/13/20 19:00 07:00 Intake Total 400 ml 200 ml Balance 400 ml 200 ml Intake Oral 400 ml 200 ml # Voids 1 Laboratory Tests Test 08/12/20 21:06 08/13/20 05:42 POC Whole Blood Glucose 99 MG/DL (74-106) Pending White Blood Count 4.5 K/UL (4.8-10.8) L Red Blood Count 2.50 M/UL (4.20-5.40) L Hemoglobin 7.2 G/DL (12.0-16.0) L Hematocrit 23.6 % (37.0-47.0) L Mean Corpuscular Volume 95 FL (80-99) Mean Corpuscular Hemoglobin 29.0 PG (27.0-31.0) Mean Corpuscular Hemoglobin Concent 30.6 G/DL (32.0-36.0) L Red Cell Distribution Width 16.8 % (11.6-14.8) H Platelet Count 100 K/UL (150-450) L Mean Platelet Volume 6.1 FL (6.5-10.1) L Neutrophils (%) (Auto) % (45.0-75.0) Lymphocytes (%) (Auto) % (20.0-45.0) Monocytes (%) (Auto) % (1.0-10.0) Eosinophils (%) (Auto) % (0.0-3.0) Basophils (%) (Auto) % (0.0-2.0) Neutrophils % (Manual) Pending Lymphocytes % (Manual) Pending Platelet Estimate Pending Platelet Morphology Pending Sodium Level 140 MMOL/L (136-145) Potassium Level 4.6 MMOL/L (3.5-5.1) Chloride Level 105 MMOL/L (98-107) Carbon Dioxide Level 28 MMOL/L (21-32) Anion Gap 7 mmol/L (5-15) Blood Urea Nitrogen 20 mg/dL (7-18) H Creatinine 5.9 MG/DL (0.55-1.30) H Estimat Glomerular Filtration Rate 8.8 mL/min (>60) Glucose Level 99 MG/DL (74-106) Hemoglobin A1c 5.1 % (4.3-6.0) Calcium Level 8.7 MG/DL (8.5-10.1) Phosphorus Level 3.7 MG/DL (2.5-4.9) Magnesium Level 2.5 MG/DL (1.8-2.4) H Iron Level 28 ug/dL (50-175) L Total Iron Binding Capacity 120 ug/dL (250-450) L Percent Iron Saturation 23 % (15-50) Unsaturated Iron Binding 92 ug/dL (112-346) L Height (Feet): 5 Height (Inches): 6.00 Weight (Pounds): 120 Medications Current Medications Medications (Trade) Dose Ordered Sig/Tamra Route PRN Reason Start Time Stop Time Status Last Admin Dose Admin Acetaminophen (Tylenol) 650 mg Q4H PRN ORAL Mild Pain (Pain Scale 1-3) 08/12/20 10:30 09/11/20 10:29 Acetaminophen (Tylenol) 650 mg Q8H PRN ORAL For Pain 08/12/20 04:30 09/11/20 04:29 Albuterol/ Ipratropium (Albuterol/ Ipratropium) 3 ml Q4H PRN HHN Shortness of Breath 08/12/20 10:30 08/17/20 10:29 Amlodipine Besylate (Norvasc) 10 mg DAILY ORAL 08/12/20 09:00 09/11/20 08:59 Aspirin (Ecotrin) 81 mg DAILY ORAL 08/13/20 09:00 09/27/20 08:59 Aspirin (Ecotrin) 81 mg ONCE ORAL 08/12/20 11:00 09/26/20 13:59 Atorvastatin Calcium (Lipitor) 80 mg BEDTIME ORAL 08/12/20 21:00 11/10/20 20:59 Dextrose (Dextrose 50%) 25 ml Q30M PRN IV Hypoglycemia 08/12/20 10:30 11/10/20 10:29 Dextrose (Dextrose 50%) 25 ml Q30M PRN IV Hypoglycemia 08/12/20 10:45 11/10/20 10:44 Dextrose (Dextrose 50%) 50 ml Q30M PRN IV Hypoglycemia 08/12/20 10:30 11/10/20 10:29 Dextrose (Dextrose 50%) 50 ml Q30M PRN IV Hypoglycemia 08/12/20 10:45 11/10/20 10:44 Heparin Sodium (Porcine) (Heparin 5000 units/ml) 5,000 units EVERY 12 HOURS SUBQ 08/12/20 21:00 09/26/20 20:59 Heparin Sodium (Porcine) (Heparin 5000 units/ml) 5,000 units ONCE SUBQ 08/12/20 10:45 09/26/20 12:44 Hydralazine HCl (Apresoline) 25 mg Q6H PRN ORAL For High Blood Pressure 08/12/20 10:45 11/10/20 10:44 08/13/20 05:53 Insulin Aspart (NovoLOG) BEFORE MEALS AND HS SUBQ 08/12/20 11:30 11/10/20 11:29 Lisinopril (PriniviL) 20 mg DAILY ORAL 08/13/20 09:00 09/12/20 08:59 Magnesium Hydroxide (Mom) 30 ml HSPRN PRN ORAL Constipation 08/12/20 10:30 09/11/20 10:29 Metoclopramide HCl (Reglan) 10 mg Q6H PRN IVP Nausea & Vomiting 08/12/20 10:30 09/11/20 10:29 Ondansetron HCl (Zofran) 4 mg Q6H PRN IVP Nausea & Vomiting 08/12/20 04:30 09/11/20 04:29 Polyethylene Glycol (Miralax) 17 gm DAILY PRN ORAL Constipation 08/12/20 04:30 09/11/20 04:29 Polyethylene Glycol (Miralax) 17 gm HSPRN PRN ORAL Constipation 08/12/20 10:30 09/11/20 10:29 Senna/Docusate Sodium (Joie-Colace) 1 tab TWICE A DAY ORAL 08/12/20 09:00 09/11/20 08:59 Assessment/Plan Diagnosis [place] I: #ESRD - on MWF #nausea, emesis, abd pain #Elevated troponin #HTN #HLD - s/p HD last night - lisinopril 20mg daily - amlodipine 10mg daily - aspirin 81mg daily - add hydralazine 25mg q8hr - monitor phos - check vitamin D and PTH Dominic Gimenez M.D. Aug 13, 2020 08:45
[2020-08-13] MEDS ORDERED: Lisinopril 20mg tab ORAL SCH (09:00)
[2020-08-13] MEDS ORDERED: Aspirin EC 81mg tab ORAL SCH (09:00)
--- NOTE | 2020-08-13 09:36 | General Progress Note ---
Subjective Constitutional: Denies: no symptoms, chills, diaphoresis, fever, malaise, weakness, other HEENT: Denies: no symptoms, eye pain, blurred vision, tearing, double vision, ear pain, ear discharge, nose pain, nose congestion, throat pain, throat swelling, mouth pain, mouth swelling, other Cardiovascular: Denies: no symptoms, chest pain, edema, irregular heart rate, lightheadedness, palpitations, syncope, other Respiratory: Denies: no symptoms, cough, orthopnea, shortness of breath, SOB with excertion, SOB at rest, sputum, stridor, wheezing, other Gastrointestinal/Abdominal: Denies: no symptoms, abdomen distended, abdominal pain, black stools, tarry stools, blood in stool, constipated, diarrhea, difficulty swallowing, nausea, poor appetite, poor fluid intake, rectal bleeding, vomiting, other Genitourinary: Denies: no symptoms, burning, discharge, frequency, flank pain, hematuria, incontinence, pain, urgency, other Neurologic/Psychiatric: Denies: no symptoms, anxiety, depressed, emotional problems, headache, numbness, paresthesia, pre-existing deficit, seizure, tingling, tremors, weakness, other Endocrine: Denies: no symptoms, excessive sweating, flushing, intolerance to cold, intolerance to heat, increased hunger, increased thirst, increased urine, unexplained weight gain, unexplained weight loss, other Hematologic/Lymphatic: Denies: no symptoms, anemia, easy bleeding, easy bruising, other Allergies: Coded Allergies: NO KNOWN ALLERGIES (Unverified Allergy, Unknown, 06/22/15) Subjective no acute events overnight. Patient recieved dialysis overnight. She is refusing all treatment currently and would like to go home. I discussed with her the results fo her labs this morning and worsening CBC and BP, however, she "does not care and I'm leaving."She has been difficult with staff since her admission. Objective Last 24 Hour Vital Signs Date Time Temp Pulse Resp B/P (MAP) Pulse Ox O2 Delivery O2 Flow Rate FiO2 08/13/20 08:14 Room Air 08/13/20 08:00 86 08/13/20 05:53 174/72 08/13/20 04:00 97.7 83 18 174/72 (106) 95 08/13/20 04:00 91 08/13/20 00:00 97.2 97 20 161/71 (101) 95 08/13/20 00:00 89 08/12/20 22:33 195/90 08/12/20 21:00 Room Air 08/12/20 20:00 97.7 89 20 173/83 (113) 92 08/12/20 20:00 88 08/12/20 16:00 83 08/12/20 16:00 97.9 82 20 166/78 (107) 88 08/12/20 12:00 98.0 85 22 163/80 (107) 88 08/12/20 12:00 82 Intake and Output 08/12/20 08/13/20 19:00 07:00 Intake Total 400 ml 200 ml Balance 400 ml 200 ml Intake Oral 400 ml 200 ml # Voids 1 Laboratory Tests 08/12/20 21:06: POC Whole Blood Glucose 99 08/13/20 05:42: POC Whole Blood Glucose [Pending], White Blood Count 4.5L, Red Blood Count 2.50L , Hemoglobin 7.2L, Hematocrit 23.6L, Mean Corpuscular Volume 95, Mean Corpuscu lar Hemoglobin 29.0, Mean Corpuscular Hemoglobin Concent 30.6L, Red Cell Distribution Width 16.8H, Platelet Count 100L, Mean Platelet Volume 6.1L, Neutrophils (%) (Auto) , Lymphocytes (%) (Auto) , Monocytes (%) (Auto) , Eosinophils (%) (Auto) , Basophils (%) (Auto) , Neutrophils % (Manual) [Pending] , Lymphocytes % (Manual) [Pending], Platelet Estimate [Pending], Platelet Morphology [Pending], Sodium Level 140, Potassium Level 4.6, Chloride Level 105, Carbon Dioxide Level 28, Anion Gap 7, Blood Urea Nitrogen 20H, Creatinine 5.9H, Estimat Glomerular Filtration Rate 8.8, Glucose Level 99, Hemoglobin A1c 5.1, Calcium Level 8.7, Phosphorus Level 3.7, Magnesium Level 2.5H, Iron Level 28L, Total Iron Binding Capacity 120L, Percent Iron Saturation 23, Unsaturated Iron Binding 92L Height (Feet): 5 Height (Inches): 6.00 Weight (Pounds): 120 General Appearance: no apparent distress, alert, alert oriented x3 EENT: PERRL/EOMI Neck: normal alignment, normal inspection Cardiovascular: normal rate, regular rhythm, no JVD Respiratory/Chest: lungs clear, normal breath sounds, no respiratory distress Abdomen: non tender, soft, no organomegaly Extremities: normal range of motion, non-tender Edema: no edema noted Arm (L), no edema noted Arm (R), no edema noted Leg (L), no edema noted Leg (R), no edema noted Pedal (L), no edema noted Pedal (R), no edema noted Generalized Neurologic: almond grinder II-XII grossly normal, oriented x 3 Assessment/Plan Assessment/Plan: Mrs. Solis is a 60F with PMH of ESRD on HD, HTN, asthma, DM, and anemia who presents for nausea and vomiting. A: # Nausea/Vomiting w/ poor oral intake - resolved # Acute Hypoxic Respiratory Failure s/p NC # Pancytopenia - worsening # Pulmonary Edema # ESRD s/p HD MWF # Tropinemia likley 2/2 ESRD # Essential HTN - worsneing # Asthma # Type 2 DM P: - hemodynamically stable - sat well on 2L NC, keep O2 > 92% - nausea and vomiting resolved - f/u ECHO > slightly down EF at 45% - Dialysis per nephro - CBC worsneing today, will trend - transfuse if Hgb < 7 - hold heparin platelets < 50 - BP elevated, started Lisinopril however patient refused to take new medications - continue home amlodipine 10 mg daily - hydralazine prn SBP > 170 - mild ISS; dialy reassessment of insulin requirements - consult nephrology for dialysis - consult Dr. Oliveira cardiology recs appreciated Code: Full GI: none DVT: Heparin 5000U BID Diet: renal Dispo: discharge home with better BP control and CBC stabilization Time spent on this encounter was 35 minutes which included 25 minutes of counseling and care coordination. I discussed with the nurse at bedside. Time of note may not reflect time patient was seen. Demond Doyle D.O Aug 13, 2020 09:36
[2020-08-13] MEDS ORDERED: HydrALAZINE 25mg tab ORAL SCH ×2 (10:45→12:00)
[2020-08-13] MEDS: Aspirin EC 81mg tab ORAL SCH (10:47)
--- NOTE | 2020-08-15 09:32 | Discharge Summary ---
Discharge Summary Discharge Summary _ DATE OF ADMISSION: 08/12/2020 DATE OF DISCHARGE: 08/13/2020 Patient left AGAINST MEDICAL ADVICE REASON FOR ADMISSION: 60 years old female with past medical history of hypertension, diabetes, end- stage renal disease, on hemodialysis, asthma, was brought from home by par amedics due to nausea and vomiting. Patient apparently behave inappropriately in emergency room, being very uncooperative and abrasive towards ER staff and physician. Patient refused to answer most of the questions. She told paramedics that she had abdominal pain. She denied fever , chills , chest pain, shortness of breath. Patient declined physical examination by emergency room physician and stated that she wanted to go to another hospital . Upon evaluation patient had low-grade fever 99.5 , mild tachycardia with heart rate of 108. Blood pressure was elevated 190/72 , pulse oximetry was stable on room air. Laboratory work-up revealed no leukocytosis , hemoglobin 8.3, hematocrit 26.7, platelet count 120. BUN 39, creatinine 9.7, consistent with known history of end-stage renal disease. Glucose 101. Potassium 5.2. AST 41, ALT 32, lipase 41. Troponin elevated 0.109. EKG revealed sinus tachycardia, no acute ischemic changes. CT of the abdomen and pelvis revealed atrophic kidneys. Cardiomegaly. Mild pulmonary edema with mild ascites and anasarca. Copious amount of stool throughout the colon with mild stool impaction of the rectum. In emergency department patient received Aspirin, antiemetic, magnesium citrate, analgesic and admitted for further management. CONSULTANTS: building cleaning supervisor Dr. Barragan [employer]SE: Patient admitted to telemetry floor. Second troponin mildly elevated ; levels flat, likely secondary to end-stage renal disease . Echocardiogram demonstrated anterior wall base mid hypokinesis with ejection fraction estimated to be 45%. No evidence of left pericardial effusion. Mild to moderate mitral and tricuspid regurgitation. Right ventricular systolic pressure of 52 consistent with a moderate pulmonary hypertension. Patient was continued on antiplatelet therapy with aspirin. Antihypertensive regimen was optimized to bring blood pressure under control Statin continued. Lunchroom Monitor consulted. DVT prophylaxis provided. Blood sugar was managed with sliding scale of insulin. Dialysis was arranged as per building cleaning supervisor recommendation and was done on 08/12 at nighttime. Volumes, renal parameters, electrolytes were closely monitored; electrolytes corrected as needed . Antiemetic provided as needed. Bowel regimen instituted Nausea and vomiting resolved. Patient initially required supplemental oxygen via nasal cannula. After hemodialysis patient was able to be weaned from the nasal cannula . Pulse oximetry was stable on room air. Bronchodilator treatment was on board as needed. No evidence of asthma exacerbation. Hemoglobin and hematocrit were closely monitored with goal to keep hemoglobin above 7. Hemoglobin dropped to 7.2 from initial 8.3. Platelets dropped to 100 from initial 120. Anemia work-up was consistent with anemia of chronic disease. Plan was to further optimize blood pressure and get CBC stabilization prior to discharge. Patient decided to leave AGAINST MEDICAL ADVICE. The risks and consequences of signing AGAINST MEDICAL ADVICE were discussed with patient in detail. Patient verbalized understanding, nevertheless signed AMA form and left. FINAL DIAGNOSES: Nausea and vomiting with poor oral intake Pulmonary edema Acute hypoxic respiratory failure (requiring supplemental oxygen) - resolved End-stage renal disease on hemodialysis Elevated troponin, likely secondary to end-stage renal disease Essential hypertension with initial hypertensive urgency Asthma Diabetes mellitus type 2 Anemia of chronic disease Thrombocytopenia Constipation I have been assigned to dictate discharge summary for this account. I was not involved in the patient's management. Thais Keen NP Aug 15, 2020 09:32
== END 2020-08-13 12:21 | disposition left against medical advice (07) | DRG 469 ==
LOC: EDBD 22:56 → EMR 23:27 → 2E 08-12 02:16 → EDBEDREQ 08-12 02:46
PROC: 5A1D70Z Performance of Urinary Filtration, Intermittent, Less than 6 Hours Per Day (ICD-10-PCS; principal; 2020-08-12)
DX: N17.9 Acute kidney failure, unspecified (principal); I12.0 Hypertensive chronic kidney disease with stage 5 chronic kidney disease or end stage renal disease; E87.5 Hyperkalemia; E11.22 Type 2 diabetes mellitus with diabetic chronic kidney disease; N18.6 End stage renal disease; Z99.2 Dependence on renal dialysis; J96.01 Acute respiratory failure with hypoxia; D69.6 Thrombocytopenia, unspecified; I51.7 Cardiomegaly; D63.8 Anemia in other chronic diseases classified elsewhere; J45.909 Unspecified asthma, uncomplicated; I34.0 Nonrheumatic mitral (valve) insufficiency; I36.1 Nonrheumatic tricuspid (valve) insufficiency; K59.00 Constipation, unspecified
CPT/HCPCS: 36415; 71045; 74176; 80048; 80053; 82962; 83036; 83540; 83550; 83690; 83735; 84100; 84484; 85007; 85025; 85610; 85730; 87081; 93005; 93306; 96374; 96375; 99291; J1815; J2405; U0002

== ENCOUNTER 2020-08-18 23:34 | Emergency (ER) | payer OTHER ==
[~2020-08-18] VITALS: Ht 152.4 cm; Wt 47.6 kg
[2020-08-18 23:44] VITALS: BP 196/119
[2020-08-19] MEDS ORDERED: Aspirin Baby 81mg ORAL ONE
[2020-08-19] MEDS ORDERED: Nitroglycerin 2% oint pkt TOPIC ONE
--- NOTE | 2020-08-19 00:03 | Emergency Room Report ---
History of Present Illness General Chief Complaint: Dyspnea/Respdistress Source: Patient, EMS Present Illness HPI This is a 60-year-old female with a history of high blood pressure. She also has a history of renal failure on hemodialysis. Her hemodialysis days are Friday, Friday, and Friday. She presents with chief complaint of shortness of breath. She normally uses her albuterol inhaler prior to smoking. She states she smoked today and still remaining shortness of breath. She called 911. Propulsion Systems Engineer gave her a breathing treatment. She says she felt better. She also told me that she has some chest tightness. She missed her dialysis today because she says she has people over and did not want to leave them there by themselves. She denies exertional component. No radiation of the pain. Complaining of tightness. No nausea or vomiting. No diaphoresis. Better with rest and breathing treatment. Worse with smoking. Patient was just here last week for similar complaint. She signed out AMA. Patient is very angry. She started yelling at me and then stop talking just because I asked her if she has oxygen at home. After a while, she agree to give a history. She is also yelling at nursing staff for not able to get an IV in her. Allergies: Coded Allergies: NO KNOWN ALLERGIES (Unverified Allergy, Unknown, 06/22/15) COVID-19 Screening Contact w/high risk pt: No Recent Travel to affected area: No Experienced COVID-19 symptoms?: Yes COVID-19 Testing performed SUPERINTENDENT MAINTENANCE: Yes COVID-19 Screening: Negative COVID-19 COVID-19 Testing Source: 07/2020 Patient History Past Medical History: see triage record, old chart reviewed, HTN, renal disease, dialysis Past Surgical History: other Pertinent Family History: none Social History: Reports: smoking Now: No Nursing Documentation-PMH Past Medical History: No History, Except For Hx Cardiac Problems: Yes - osteoarthritis Hx Hypertension: Yes Hx Pacemaker: No Hx Asthma: Yes Hx COPD: No Hx Diabetes: Yes - DIALYSIS MWF R ARM [facility]UNT Hx Cancer: No Hx Gastrointestinal Problems: Yes Hx Dialysis: Yes - ESRD, m/w/f , Hx Neurological Problems: Yes - arthritis Hx Cerebrovascular Accident: No Hx Seizures: No Review of Systems Eye: Denies: eye pain, blurred vision ENT: Denies: ear pain, nose congestion, throat swelling Respiratory: Reports: cough, shortness of breath Cardiovascular: Reports: chest pain; Denies: palpitations Gastrointestinal: Denies: abdominal pain, diarrhea, nausea, vomiting Musculoskeletal: Denies: back pain, joint pain Skin: Denies: rash Neurological: Denies: headache, numbness Endocrine: Denies: increased thirst, increased urine Hematologic/Lymphatic: Denies: easy bruising All Other Systems: negative except mentioned in HPI Physical Exam Vital Signs Date Time Temp Pulse Resp B/P (MAP) Pulse Ox O2 Delivery O2 Flow Rate FiO2 08/18/20 23:26 98.4 98 18 197/92 (127) 97 Room Air Vitals with high blood pressure Sp02 EP Interpretation: reviewed, normal General Appearance: well appearing, no apparent distress, alert Head: normocephalic, atraumatic Eyes: bilateral eye PERRL, bilateral eye EOMI ENT: hearing grossly normal, normal pharynx Neck: full range of motion, supple, no meningismus Respiratory: chest non-tender, rales - At the base Cardiovascular #1: regular rate, rhythm, no murmur Gastrointestinal: normal bowel sounds, non tender, no mass, no organomegaly, no bruit, non-distended Musculoskeletal: back normal, normal range of motion, gait/station normal Psychiatric: mood/affect normal Medical Decision Making Diagnostic Impression: Primary Impression: Acute exacerbation of CHF (congestive heart failure) Qualified Codes: I50.9 - Heart failure, unspecified Additional Impressions: Anemia, chronic renal failure Qualified Codes: N18.5 - Chronic kidney disease, stage 5; D63.1 - Anemia in chronic kidney disease Chest pain Qualified Codes: R07.9 - Chest pain, unspecified Hypertension Qualified Codes: I10 - Essential (primary) hypertension ER Course Patient presents with shortness of breath. She admits dialysis today and chest x-ray showed CHF/pulmonary edema. Patient is very irascible. She refused multiple nursing staff attempted IV. Finally I was able to get an IV using an ultrasound. She refused to have a blood pressure cuff on her. At 1 point, she refused blood pressure medication Lasix because she states she wants to sleep. Discussed the case with Dr. Juan who accepted pt for transfer to [facility]. EKG Diagnostic Results Troponin ordered: Yes Rate: normal Rhythm: NSR ST Segments: no acute changes ASA given to the pt in ED: Yes Rhythm Strip Diag. Results EP Interpretation: yes Rate: 100 Rhythm: NSR, no PVC's, no ectopy Chest X-Ray Diagnostic Results Chest X-Ray Diagnostic Results : Chest X-Ray Ordered: Yes # of Views/Limited/Complete: 1 View Indication: Shortness of Breath EP Interpretation: Yes Interpretation: no effusion, no pneumothorax, other - Pulmonary congestion Impression: Other - CHF/pulmonary edema Electronically Signed by: Kings Sarabia MD Last Vital Signs Date Time Temp Pulse Resp B/P (MAP) Pulse Ox O2 Delivery O2 Flow Rate FiO2 08/18/20 23:44 103 20 Room Air 08/18/20 23:44 98.4 196/119 99 Status: improved Disposition: SHORT-TERM HOSP Condition: Stable Referrals: NON PHYSICIAN (PCP) Kings Sarabia MD Aug 19, 2020 00:03
[2020-08-19] MEDS ORDERED: Labetalol 5mg/ml 20ml vial IV ONE ×2 (00:45→02:00)
[2020-08-19 01:09] LABS: BASOPHILS % (AUTO) 0.8 % (0.0-2.0); EOSINOPHILS % (AUTO) 7.7 % (0.0-3.0); HEMATOCRIT 26.9 % (37.0-47.0); HEMOGLOBIN 8.2 G/DL (12.0-16.0); LYMPHOCYTES % (AUTO) 13.3 % (20.0-45.0); MEAN CORPUSCULAR VOLUME 98 FL (80-99); MONOCYTES % (AUTO) 5.4 % (1.0-10.0); NEUTROPHILS % (AUTO) 72.7 % (45.0-75.0); PLATELET COUNT 188 K/UL (150-450); RED BLOOD COUNT 2.76 M/UL (4.20-5.40); RED CELL DISTRIBUTION WIDTH 17.7 % (11.6-14.8); WHITE BLOOD COUNT 8.7 K/UL (4.8-10.8)
--- NOTE | 2020-08-19 01:17 | Diagnostic Imaging Report ---
EXAM: XR Chest, 1 View CLINICAL HISTORY: SOB TECHNIQUE: Frontal view of the chest. COMPARISON: No relevant prior studies available. FINDINGS: Lungs: Pulmonary vascular congestion. Pleural space: No significant abnormality. No pneumothorax. Heart: Stable cardiomediastinal silhouette. Mediastinum: See above. Bones/joints: No acute osseous abnormality. IMPRESSION: Pulmonary vascular congestion.
[2020-08-19 01:19] LABS: ANION GAP 9 mmol/L (5-15); BLOOD UREA NITROGEN 31 mg/dL (7-18); CALCIUM 9.3 MG/DL (8.5-10.1); CARBON DIOXIDE 25 MMOL/L (21-32); CHLORIDE 104 MMOL/L (98-107); CREATININE 8.2 MG/DL (0.55-1.30); POTASSIUM 5.1 MMOL/L (3.5-5.1); SODIUM 138 MMOL/L (136-145)
[2020-08-19 01:30] LABS: ALANINE AMINOTRANSFERASE 38 U/L (12-78); ALBUMIN 3.3 G/DL (3.4-5.0); ALBUMIN/GLOBULIN RATIO 1.2 (1.0-2.7); ALKALINE PHOSPHATASE 83 U/L (46-116); ASPARTATE AMINO TRANSFERASE 16 U/L (15-37); BILIRUBIN,TOTAL 0.4 MG/DL (0.2-1.0)
[2020-08-19 02:51] VITALS: BP 161/70
== END 2020-08-19 02:51 | disposition short-term general hospital (02) ==
LOC: EDBD 23:34 → EMR 23:50
DX: I50.9 Heart failure, unspecified (principal); N18.5 Chronic kidney disease, stage 5; D63.1 Anemia in chronic kidney disease; R07.9 Chest pain, unspecified; I13.2 Hypertensive heart and chronic kidney disease with heart failure and with stage 5 chronic kidney disease, or end stage renal disease; E11.22 Type 2 diabetes mellitus with diabetic chronic kidney disease; Z99.2 Dependence on renal dialysis; M19.90 Unspecified osteoarthritis, unspecified site; F17.200 Nicotine dependence, unspecified, uncomplicated
CPT/HCPCS: 36415; 71045; 80053; 83880; 84484; 85025; 93005; 96374; 96375; 96376; J1940; Z7502; 99285

== ENCOUNTER 2020-09-21 11:10 | Emergency (ER) | payer OTHER ==
[~2020-09-21] VITALS: Ht 157.5 cm; Wt 49.9 kg
[2020-09-21] MEDS ORDERED: Albuterol ud Inhalation HHN ONE (11:45)
[2020-09-21 12:00] VITALS: BP 155/81
--- NOTE | 2020-09-23 13:04 | Cardiology Report ---
APPROVED REPORT EKG Measurement Heart [id number] NM [id number] <Conclusion> Normal sinus rhythm Right axis deviation Nonspecific ST abnormality Abnormal ECG
--- NOTE | 2020-09-30 14:37 | Emergency Room Report ---
History of Present Illness General Chief Complaint: Dyspnea/Respdistress Source: Patient, EMS Present Illness HPI Patient is a 60-year-old female brought in by EMS after increased difficulty with breathing. Prior history of COPD. Had reportedly recently missed dialysis. She denies any fever. Some nonproductive cough. Worsening choking shortness of breath with supine position. Denies any new leg pain. Reports having some swelling to both legs. Allergies: Coded Allergies: NO KNOWN ALLERGIES (Unverified Allergy, Unknown, 06/22/15) COVID-19 Screening Contact w/high risk pt: No Recent Travel to affected area: No Experienced COVID-19 symptoms?: Yes COVID-19 Testing performed [employer] VESSEL OPERATOR: No Patient History Past Medical History: see triage record Now: No Reviewed Nursing Documentation: PMH: Agreed; PSxH: Agreed Nursing Documentation-PMH Hx Cardiac Problems: Yes - osteoarthritis Hx Hypertension: Yes Hx Pacemaker: No Hx Asthma: Yes Hx COPD: No Hx Diabetes: Yes Hx Cancer: No Hx Gastrointestinal Problems: Yes Hx Dialysis: Yes Hx Neurological Problems: Yes - arthritis Hx Cerebrovascular Accident: No Hx Seizures: No Review of Systems All Other Systems: negative except mentioned in HPI Physical Exam Sp02 EP Interpretation: reviewed, normal General Appearance: normal inspection, alert, GCS 15, Chronically Ill Head: atraumatic ENT: normal ENT inspection, hearing grossly normal, normal voice Neck: normal inspection, full range of motion, supple, no bony tend Respiratory: no retraction, wheezing Cardiovascular #1: regular rate, rhythm, edema - Bilateral lower extremity dependent edema 2+ Gastrointestinal: normal inspection, normal bowel sounds, non tender, soft, no guarding, no hernia Genitourinary: no CVA tenderness Musculoskeletal: normal inspection, back normal, normal range of motion Neurologic: alert, motor strength/tone normal, rooming house operator III-XII nml as tested, oriented x3, responsive, speech normal, normal inspection Psychiatric: normal inspection, judgement/insight normal, mood/affect normal Skin: no rash Medical Decision Making Diagnostic Impression: Primary Impression: Dyspnea Additional Impression: Renal failure (ARF), acute on chronic ER Course Patient presented for shortness of breath. Differential diagnosis include was not limited to myocardial infarction, CHF exacerbation, pneumonia, coronavirus infection among others. Laboratory testing as well as EKG was ordered and EKG showed no acute myocardial infarction. Patient was in the process of emergency department work-up when she stated she wanted to leave the hospital AGAINST MEDICAL ADVICE. Patient was advised that she needed dialysis. Patient was advised the risk benefits and alternatives of leaving the hospital AGAINST MEDICAL ADVICE including disability loss of current lifestyle heart attack she indicates understanding and wishes to leave. Patient was advised she could return at any time. This medical record is generated with [employer] independent film maker software. There may be some independent film maker discrepancies related to use of this software Status: unchanged Disposition: AGAINST MEDICAL ADVICE Condition: Serious Referrals: [facility],REFERRING (PCP) Norman Bonilla MD Sep 30, 2020 14:37
== END 2020-09-21 12:05 | disposition left against medical advice (07) ==
LOC: EDBD 11:10 → EMR 11:40 → CANBEDREQ 12:53
DX: R06.00 Dyspnea, unspecified (principal); N17.9 Acute kidney failure, unspecified; N18.9 Chronic kidney disease, unspecified; I13.10 Hypertensive heart and chronic kidney disease without heart failure, with stage 1 through stage 4 chronic kidney disease, or unspecified chronic kidney disease; J44.9 Chronic obstructive pulmonary disease, unspecified; J45.909 Unspecified asthma, uncomplicated; E11.9 Type 2 diabetes mellitus without complications; M19.90 Unspecified osteoarthritis, unspecified site; Z53.29 Procedure and treatment not carried out because of patient's decision for other reasons; Z99.2 Dependence on renal dialysis
CPT/HCPCS: 71045; 93005; Z7502; 99283